=== PATIENT | female | born 1945 | race Caucasian/White ===

== ENCOUNTER 2022-09-04 09:06 | Day surgery (SDC) | payer MEDICARE ==
[2022-08-30 11:53] VITALS: BMI 26.0
[~2022-09-04 09:06] MED LIST: LACTATED RINGERS 1,000 ML IV SCH
[2022-09-04 09:40] VITALS: RESP 16; TEMP 97
[2022-09-04] MEDS ORDERED: PROPOFOL 10 MG/ML 20 ML VIAL IV ONE (10:30)
--- NOTE | 2022-09-04 10:49 | P.PCN ---
Date of Procedure: 09/04/22 Procedure(s) Performed: BRIEF HISTORY: Patient is a 77-year-old pleasant white female scheduled for an elective colonoscopy as a part of screening for colon cancer. Last colonoscopy was 10 years ago. PROCEDURE PERFORMED: Colonoscopy. PREOPERATIVE DIAGNOSIS: Screening for colon cancer. IV sedation per Anesthesia. PROCEDURE: After informed consent was obtained, the patient, was brought into the endoscopy unit. IV sedation was administered by Anesthesia under continuous monitoring. Digital rectal examination was normal. Initially the Olympus CF-160 flexible video colonoscope was then inserted in the rectum, gradually advanced into the cecum without any difficulty. Careful examination was performed as the scope was gradually being withdrawn. Ileocecal valve and the appendiceal orifice were visualized and appeared normal. Prep was excellent. Mucosa of the cecum, ascending colon, transverse colon, descending colon, sigmoid colon, and rectum appeared normal. Scattered sigmoid diverticulosis. Retroflexion was performed in the rectum and no lesions were seen. The patient tolerated the procedure well. IMPRESSION: Normal-appearing colon from rectum to cecum with no evidence of colorectal neoplasia . Scattered sigmoid diverticulosis. RECOMMENDATIONS: Findings of this examination were discussed with the patient as well as a family. She was advised to be a high-fiber diet and fiber supplements a regular basis.
[2022-09-04 10:58] VITALS: PULSE 68
[2022-09-04 11:32] VITALS: BP 105/62
== END 2022-09-04 11:35 | disposition home or self-care (01) ==
LOC: ORWHC2ENDO 09:06
PROVIDERS: ATTEND Internal Medicine Gastroenterology
DX: Z12.11 Encounter for screening for malignant neoplasm of colon (principal); K57.30 Diverticulosis of large intestine without perforation or abscess without bleeding; I10 Essential (primary) hypertension; J44.9 Chronic obstructive pulmonary disease, unspecified; M19.90 Unspecified osteoarthritis, unspecified site; E07.9 Disorder of thyroid, unspecified; K21.9 Gastro-esophageal reflux disease without esophagitis; Z87.891 Personal history of nicotine dependence; Z79.899 Other long term (current) drug therapy; Z79.82 Long term (current) use of aspirin; Z79.890 Hormone replacement therapy; Z88.8 Allergy status to other drugs, medicaments and biological substances
CPT/HCPCS: J2704; G0121

== ENCOUNTER 2023-10-14 15:40 | Inpatient (IN) | payer MEDICARE ==
[2023-10-14 17:17] LABS: Basophils % (A) 1 %; Eosinophils % (A) 1 %; HCT 43.7 % (34.0-46.0); HGB 14.6 gm/dL (11.4-16.0); Lymphocytes # (A) 0.6 k/uL (1.0-4.8); Lymphocytes % (A) 20 %; MCH 29.7 pg (25.0-35.0); MCHC 33.5 g/dL (31.0-37.0); MCV 88.6 fL (80.0-100.0); Mean Platelet Volume 7.2; Monocytes # (A) 0.4 k/uL (0-1.0); Monocytes % (A) 14 %; Neutrophils # (A) 1.8 k/uL (1.3-7.7); Neutrophils % (A) 60 %; Platelet Count 241 k/uL (150-450); RBC 4.93 m/uL (3.80-5.40)
[2023-10-14 17:18] LABS: Partial Thromboplastin Time 24.4 sec (22.0-30.0); Prothrombin Time 10.7 sec (10.0-12.5)
--- NOTE | 2023-10-14 17:25 | XR ---
EXAMINATION TYPE: XR chest 2V DATE OF EXAM: 10/14/2023 5:13 PM CLINICAL INDICATION:Female, 78 years old with history of difficulty breathing; [facility] COMPARISON: None TECHNIQUE: XR chest 2V Frontal view of the chest. FINDINGS: Lungs/Pleura: There is increased lucency in the lung apices. There is no evidence of pleural effusion , focal consolidation, or pneumothorax. Pulmonary vascularity: Prominence of the vasculature of the lungs worse in the lung bases. Heart/mediastinum: Cardiomediastinal silhouette is unremarkable. Atherosclerosis of the aortic arch. Musculoskeletal: No acute osseous pathology. Degeneration changes throughout the spine with disc spac e narrowing osteophyte formation and facet joint arthropathy. Degeneration changes of the acromioclav icular joints bilaterally. IMPRESSION: 1. Pulmonary vascular prominence, correlate with serum BNP to exclude a component of congestive hear t failure. Obscuration of the right heart border may be partially due to prominence of the vasculatur e with underlying infection not excluded, correlate for pneumonia. 2. COPD changes.
[2023-10-14 17:27] LABS: ALT 22 U/L (4-34); AST 34 U/L (14-36); African American GFR (CKD) 34 (>60 ml/min/1.73 sqM); Alkaline Phosphatase 82 U/L (38-126); Anion Gap 9 mmol/L; Blood Urea Nitrogen 29 mg/dL (7-17); Calcium 9.8 mg/dL (8.4-10.2); Carbon Dioxide 21 mmol/L (22-30); Chloride 110 mmol/L (98-107); Glucose 111 mg/dL (74-99); Non-African American GFR(CKD) 29 (>60 ml/min/1.73 sqM); Sodium 140 mmol/L (137-145); Total Bilirubin 0.7 mg/dL (0.2-1.3); Total Protein 6.7 g/dL (6.3-8.2)
[2023-10-14 17:36] LABS: NT-Pro-B-Type Natriuretic Pept 208 pg/mL
--- NOTE | 2023-10-14 18:11 | ED ---
SOB HPI - General Chief Complaint: Shortness of Breath Stated Complaint: CANDI Time Seen by Provider: 10/14/23 16:37 Source: patient Mode of arrival: ambulatory Limitations: no limitations - History of Present Illness Initial Comments: 78 year old female with past medical history of COPD not on home O2 who presents emergency department reporting productive cough and shortness of breath. Patient states that she originally got sick on October 04. Her had similar symptoms however he got better much faster. She has had a productive cough with yellow sputum. Denies fevers. Admits to shortness of breath. She does have COPD but does not wear oxygen. She has inhalers at home which she uses occasionally. States she has been using them without any improvement in her symptoms. She denies chest pain. No history of coronary disease. Denies history of congestive heart failure. No leg swelling. Denies any calf pain. No history of PE or DVT. Patient does not take any water pills. She went to an urgent care today who did a chest x-ray and gave her a breathing treatment. They told her she had pneumonia and she had to go to the hospital. Upon hospital arrival patient was found to be saturating 83% on room air. Patient placed on 4 L with improvement. No other alleviating, precipitating or modifying factors - Related Data Home Medications Medication Instructions Recorded Confirmed Albuterol Inhaler [Ventolin Hfa 1 - 2 puff INHALATION Q6H PRN 08/30/22 09/04/22 Inhaler] Aspirin [Adult Low Dose Aspirin EC] 81 mg PO DAILY 08/30/22 08/30/22 Atorvastatin [Lipitor] 10 mg PO DAILY 08/30/22 08/30/22 Cholecalciferol [Vitamin D3 (25 50 mcg PO DAILY 08/30/22 09/04/22 Mcg = 1000 Iu)] Famotidine [Pepcid] 20 mg PO DAILY PRN 08/30/22 08/30/22 Felodipine [Plendil] 10 mg PO DAILY 08/30/22 08/30/22 Fluticasone Propion/Salmeterol 1 inhalation PO DAILY 08/30/22 08/30/22 [Fluticasone-Salmeterol 250-50] Isosorbide Mononitrate ER [Imdur] 30 mg PO DAILY 08/30/22 08/30/22 Levothyroxine Sodium 88 mcg PO DAILY 08/30/22 08/30/22 lisinopriL [Zestril] 40 mg PO DAILY 08/30/22 08/30/22 Allergies Allergy/AdvReac Type Severity Reaction Status Date / Time brimonidine [From Combigan] Allergy Unknown crusty Verified 10/14/23 15:53 around eye lid timolol [From Combigan] Allergy Unknown crusty Verified 10/14/23 15:53 around eye lid Review of Systems ROS Statement: Those systems with pertinent positive or pertinent negative responses have been documented in the HPI. ROS Other: All systems not noted in ROS Statement are negative. Past Medical History Past Medical History: COPD, GERD/Reflux, Hypertension, Osteoarthritis (OA), Thyroid Disorder Additional Past Medical History / Comment(s): DDD., HX COLON POLYPS. History of Any Multi-Drug Resistant Organisms: None Reported Past Surgical History: Orthopedic Surgery Additional Past Surgical History / Comment(s): colonoscopy with polyps, art hroscopy right knee (2009) , right foot surgery with screw big toe and olivia 2nd toe(2004)., cataracts Past Anesthesia/Blood Transfusion Reactions: No Reported Reaction, Postoperative Nausea & Vomiting (PONV) Additional Past Anesthesia/Blood Transfusion Reaction / Comment(s): nausea after back pain injection Past Psychological History: No Psychological Hx Reported Smoking Status: Former smoker Past Alcohol Use History: Rare Past Drug Use History: None Reported - Past Family History Mother Family Medical History: No Reported History Additional Family Medical History / Comment(s): mothers sister had cancer General Exam Limitations: no limitations Course Vital Signs 10/14/23 10/14/23 10/14/23 15:50 16:15 16:23 Temperature 97.8 F Pulse Rate 77 74 69 Respiratory 22 24 22 Rate Blood Pressure 103/68 102/76 93/71 O2 Sat by Pulse 84 L 83 L 94 L Oximetry 10/14/23 10/14/23 16:25 17:00 Temperature Pulse Rate 98 Respiratory 24 20 Rate Blood Pressure 100/60 O2 Sat by Pulse 93 L Oximetry Medical Decision Making - Medical Decision Making Was pt. sent in by a medical professional or institution (, PA, CERTIFIED REGISTERED LOCKSMITH, urgent care, hospital, or fci...) When possible be specific @ -[No] Did you speak to anyone other than the patient for history (EMS, parent, family, police, friend...)? What history was obtained from this source @ -[No] Did you review nursing and triage notes (agree or disagree)? Why? @ -[I reviewed and agree with nursing and triage notes] Were old charts reviewed (outside hosp., previous admission, EMS record, old EKG, old radiological studies, urgent care reports/EKG's, fci records)? Report findings @ -[No old charts were reviewed] Differential Diagnosis (chest pain, altered mental status, abdominal pain women, abdominal pain men, vaginal bleeding, weakness, fever, dyspnea, syncope, headache, dizziness, GI bleed, back pain, seizure, CVA, palpatations, mental health, musculoskeletal)? @ -[not applicable] EKG interpreted by me (3pts min.). @ -Yes and demonstrates sinus rhythm with a rate of 69. ND interval 194. QRS 79. QTc of 410. No acute ST segment elevations or depressions. Overall low voltage X-rays interpreted by me (1pt min.). @ -[None done] CT interpreted by me (1pt min.). @ -[None done] U/S interpreted by me (1pt. min.). @ -[None done] What testing was considered but not performed or refused? (CT, X-rays, U/S, labs)? Why? @ -[None] What meds were considered but not given or refused? Why? @ -[None] Did you discuss the management of the patient with other professionals (professionals i.e. , PA, CERTIFIED REGISTERED [employer]SMITH, lab, RT, psych nurse, elementary school social worker, exhibit carpenter, teacher, banking officer, casey saw operator)? Give summary @ -[No] Was smoking cessation discussed for >3mins.? @ -[No] Was critical care preformed (if so, how long)? @ -[No] Were there social determinants of health that impacted care today? How? (Homele ssness, low income, unemployed, alcoholism, drug addiction, transportation, low edu. Level, literacy, decrease access to med. care, residential, rehab)? @ -[No] Was there de-escalation of care discussed even if they declined (Discuss DNR or withdrawal of care, Hospice)? DNR status @ -[No] What co-morbidities impacted this encounter? (DM, HTN, Smoking, COPD, CAD, Cancer, CVA, ARF, Chemo, Hep., AIDS, mental health diagnosis, sleep apnea, morbid obesity)? @ -[None] Was patient admitted / discharged? Hospital course, mention meds given and route, prescriptions, significant lab abnormalities, going to OR and other pertinent info. @ -[hospital course] Undiagnosed new problem with uncertain prognosis? @ -[No] Drug Therapy requiring intensive monitoring for toxicity (Heparin, Nitro, Insulin, Cardizem)? @ -[No] Were any procedures done? @ -[No] Diagnosis/symptom? @ -[default] Acute, or Chronic, or Acute on Chronic? @ -[default] Uncomplicated (without systemic symptoms) or Complicated (systemic symptoms)? @ -[default] Side effects of treatment? @ -[No] Exacerbation, Progression, or Severe Exacerbation? @ -[No] Poses a threat to life or bodily function? How? (Chest pain, USA, MD, pneumonia, PE, COPD, DKA, ARF, appy, cholecystitis, CVA, Diverticulitis, Homicidal, Suicidal, threat to staff... and all critical care pts) @ -[No] - Lab Data Result diagrams: 10/14/23 16:35 10/14/23 16:35 Lab Results 10/14/23 10/14/23 10/14/23 Range/Units 16:35 16:35 16:35 WBC 3.0 L (3.8-10.6) k/uL RBC 4.93 (3.80-5.40) m/uL Hgb 14.6 (11.4-16.0) gm/dL Hct 43.7 (34.0-46.0) % MCV 88.6 (80.0-100.0) fL MCH 29.7 (25.0-35.0) pg MCHC 33.5 (31.0-37.0) g/dL RDW 13.0 (11.5-15.5) % Plt Count 241 (150-450) k/uL MPV 7.2 Neutrophils % 60 % Lymphocytes % 20 % Monocytes % 14 % Eosinophils % 1 % Basophils % 1 % Neutrophils # 1.8 (1.3-7.7) k/uL Lymphocytes # 0.6 L (1.0-4.8) k/uL Monocytes # 0.4 (0-1.0) k/uL Eosinophils # 0.0 (0-0.7) k/uL Basophils # 0.0 (0-0.2) k/uL PT 10.7 (10.0-12.5) sec INR 1.0 (<1.2) APTT 24.4 (22.0-30.0) sec Sodium 140 (137-145) mmol/L Potassium 4.0 (3.5-5.1) mmol/L Chloride 110 H (98-107) mmol/L Carbon Dioxide 21 L (22-30) mmol/L Anion Gap 9 mmol/L BUN 29 H (7-17) mg/dL Creatinine 1.65 H (0.52-1.04) mg/dL Est GFR (CKD-EPI)AfAm 34 (>60 ml/min/1.73 sqM) Est GFR (CKD-EPI)NonAf 29 (>60 ml/min/1.73 sqM) Glucose 111 H (74-99) mg/dL Plasma Lactic Acid Camron (0.7-2.0) mmol/L Calcium 9.8 (8.4-10.2) mg/dL Total Bilirubin 0.7 (0.2-1.3) mg/dL AST 34 (14-36) U/L ALT 22 (4-34) U/L Alkaline Phosphatase 82 (38-126) U/L Troponin I (0.000-0.034) ng/mL NT-Pro-B Natriuret Pep 208 pg/mL Total Protein 6.7 (6.3-8.2) g/dL Albumin 4.0 (3.5-5.0) g/dL 10/14/23 10/14/23 Range/Units 16:35 16:35 WBC (3.8-10.6) k/uL RBC (3.80-5.40) m/uL Hgb (11.4-16.0) gm/dL Hct (34.0-46.0) % MCV (80.0-100.0) fL MCH (25.0-35.0) pg MCHC (31.0-37.0) g/dL RDW (11.5-15.5) % Plt Count (150-450) k/uL MPV Neutrophils % % Lymphocytes % % Monocytes % % Eosinophils % % Basophils % % Neutrophils # (1.3-7.7) k/uL Lymphocytes # (1.0-4.8) k/uL Monocytes # (0-1.0) k/uL Eosinophils # (0-0.7) k/uL Basophils # (0-0.2) k/uL PT (10.0-12.5) sec INR (<1.2) APTT (22.0-30.0) sec Sodium (137-145) mmol/L Potassium (3.5-5.1) mmol/L Chloride (98-107) mmol/L Carbon Dioxide (22-30) mmol/L Anion Gap mmol/L BUN (7-17) mg/dL Creatinine (0.52-1.04) mg/dL Est GFR (CKD-EPI)AfAm (>60 ml/min/1.73 sqM) Est GFR (CKD-EPI)NonAf (>60 ml/min/1.73 sqM) Glucose (74-99) mg/dL Plasma Lactic Acid Camron 1.3 (0.7-2.0) mmol/L Calcium (8.4-10.2) mg/dL Total Bilirubin (0.2-1.3) mg/dL AST (14-36) U/L ALT (4-34) U/L Alkaline Phosphatase (38-126) U/L Troponin I <0.012 (0.000-0.034) ng/mL NT-Pro-B Natriuret Pep pg/mL Total Protein (6.3-8.2) g/dL Albumin (3.5-5.0) g/dL Disposition Clinical Impression: Acute pulmonary edema, Pneumonia, Hypoxia Disposition: ADMITTED IP TO THIS [facility] Condition: Serious Is patient prescribed a controlled substance at d/c from ED?: No Referrals: Agapito Leal MD [Primary Care Provider] - 1-2 days Time of Disposition: 18:33 Decision to Admit Reason: Admit from EC Decision Date: 10/14/23 Decision Time: 18:33
[2023-10-14] MEDS ORDERED: PNEUMONIA PROTOCOL UTILIZED 1 EACH MISC PO PRN (18:28)
[2023-10-14] MEDS: methylPREDNISolone SOD SUCCI 125 MG/2 ML VIAL IV STA (19:12)
[2023-10-14] MEDS: IPRATROPIUM-ALBUTEROL 3 ML NEB INHALATION SCH (19:29)
[2023-10-14] MEDS: AZITHROMYCIN 500 MG in SODIUM CHLORIDE 0.9% 250 ML IVPB STA (20:12)
[2023-10-14] MEDS ORDERED: IPRATROPIUM-ALBUTEROL 3 ML NEB INHALATION PRN (20:37)
[2023-10-14] MEDS ORDERED: BACLOFEN 10 MG TAB PO PRN (21:03)
--- NOTE | 2023-10-14 21:05 | P.HPIM ---
History of Present Illness H&P Date: 10/14/23 Chief Complaint: Short of breath This is a pleasant 78-year-old patient, follows with Dr. Agapito Leal. For 1 week patient has been congested. Cough. Slight headache. Also had initially slight loose stool. Also felt feverish and having chills. Decreased appetite. Patient also got sick. Patient was [id number] history of smoking stopping about 10 years ago. Patient was 84% room air upon presentation. Tired. Review of systems: GEN.: Weak tired decreased appetite fever chills EYES: None HEENT: Slight headache NECK: None RESPIRATORY: N as above CARDIOVASCULAR: None GASTROINTESTINAL: None GENITOURINARY: None MUSCULOSKELETAL: Joint pain LYMPHATICS: None HEMATOLOGICAL: None PSYCHIATRY: None NEUROLOGICAL: None Social history: Smoked a pack a day for 50 years stopped about 10 years ago. . Physical examination: VITAL SIGNS 97.8, 77, 22, 103/68, 84% room air upon presentation GENERAL: BMI 24.3,. Reclining in bed, short of breath EYES: Pupils equal. Conjunctiva jen l. HEENT: External appearance of nose and ears normal, oral cavity grossly normal. NECK: JVD not raised; masses not palpable. HEART: First and second heart sounds are normal; no edema. LUNGS: Respiratory rate increased, decreased breath sounds some fine basilar crackles. ABDOMEN: Soft, nontender, liver spleen not palpable, no masses palpable. PSYCH: Alert and oriented x3; mood and affect jen l. MUSCULOSKELETAL:No Clubbing/cyanosis;muscles-grossly intact. OA NEUROLOGICAL: Cranial nerves grossly intact; no facial asymmetry, power and sensation grossly intact. LYMPHATICS: No lymph nodes palpable in the axilla and neck INVESTIGATIONS, reviewed in the clinical context: October 13: White count 3 hemoglobin 14.6 platelets 241 sodium 140 potassium 4 BUN 29 creatinine 1.65 Troponin I less than 0.012 proBNP 208 COVID-19 [PCR detected Chest x-ray film personally reviewed by me-scattered basilar infiltrates Assessment and plan: -Acute COVID-19 pneumonitis causing hypoxia Dexamethasone. 6 mg IV every 12. -Acute hypoxia secondary to COVID-19 pneumonia -Acute COPD exacerbation in a prior smoker Albuterol 4 puffs every 4. IV dexamethasone -Essential hypertension Zestril 40 mg a day Plendil -Hypothyroid Levothyroxine 88 mcg a day -Hyperlipidemia Lipitor 20 mg a day -GERD PPI -Primary osteoarthritis Tylenol as needed -Full code Care was discussed with the patient. Pulmonary consulted. Past Medical History Past Medical History: COPD, GERD/Reflux, Hypertension, Osteoarthritis (OA), Thyroid Disorder Additional Past Medical History / Comment(s): DDD., HX COLON POLYPS. History of Any Multi-Drug Resistant Organisms: None Reported Past Surgical History: Orthopedic Surgery Additional Past Surgical History / Comment(s): colonoscopy with polyps, arthroscopy right knee (2009) , right foot surgery with screw big toe and olivia 2nd toe(2004)., cataracts Past Anesthesia/Blood Transfusion Reactions: No Reported Reaction, Postoperative Nausea & Vomiting (PONV) Additional Past Anesthesia/Blood Transfusion Reaction / Comment(s): nausea after back pain injection Past Psychological History: No Psychological Hx Reported Smoking Status: Former smoker Past Alcohol Use History: Rare Past Drug Use History: None Reported - Past Family History Mother Family Medical History: No Reported History Additional Family Medical History / Comment(s): mothers sister had cancer Medications and Allergies Home Medications Medication Instructions Recorded Confirmed Type Albuterol Inhaler [Ventolin Hfa 2 puff INHALATION RT-Q4H PRN 08/30/22 10/14/23 History Inhaler] Aspirin [Adult Low Dose Aspirin EC] 81 mg PO DAILY 08/30/22 10/14/23 History Cholecalciferol [Vitamin D3 (25 50 mcg PO DAILY 08/30/22 10/14/23 History Mcg = 1000 Iu)] Famotidine [Pepcid] 20 mg PO DAILY 08/30/22 10/14/23 History Felodipine [Plendil] 10 mg PO DAILY 08/30/22 10/14/23 History Fluticasone Propion/Salmeterol 1 puff INHALATION RT-BID 08/30/22 10/14/23 History [Fluticasone-Salmeterol 250-50] Isosorbide Mononitrate ER [Imdur] 30 mg PO DAILY 08/30/22 10/14/23 History Levothyroxine Sodium 88 mcg PO DAILY 08/30/22 10/14/23 History lisinopriL [Zestril] 40 mg PO DAILY 08/30/22 10/14/23 History Atorvastatin [Lipitor] 20 mg PO DAILY 10/14/23 10/14/23 History Baclofen [Lioresal] 20 mg PO DAILY PRN 10/14/23 10/14/23 History Krill Oil(Unknown Dose) 1 cap PO Q2D 10/14/23 10/14/23 History Nitroglycerin Sl Tabs [Nitrostat] 0.4 mg SL Q5M PRN 10/14/23 10/14/23 History Propylene Glycol/Peg 400/Pf 1 drop BOTH EYES BID 10/14/23 10/14/23 History [Systane 0.3-0.4% Ophth Dropperette] Allergies Allergy/AdvReac Type Severity Reaction Status Date / Time brimonidine [From Combigan] Allergy Unknown crusty Verified 10/14/23 19:28 around eye lid timolol [From Combigan] Allergy Unknown crusty Verified 10/14/23 19:28 around eye lid Physical Exam Vitals: Vital Signs Temp Pulse Resp BP Pulse Ox 10/14/23 20:14 76 20 110/73 92 L 10/14/23 19:42 74 10/14/23 19:29 66 10/14/23 18:00 78 20 117/78 94 L 10/14/23 17:00 98 20 100/60 93 L 10/14/23 16:25 24 10/14/23 16:23 69 22 93/71 94 L 10/14/23 16:15 74 24 102/76 83 L 10/14/23 15:50 97.8 F 77 22 103/68 84 L Intake and Output 10/14/23 10/14/23 10/14/23 06:59 14:59 22:59 Other: Weight 62.142 kg Results CBC & Chem 7: 10/14/23 16:35 10/14/23 16:35 Labs: Abnormal Lab Results - Last 24 Hours (Table) 10/14/23 10/14/23 10/14/23 Range/Units 16:35 16:35 19:50 WBC 3.0 L (3.8-10.6) k/uL Lymphocytes # 0.6 L (1.0-4.8) k/uL Chloride 110 H (98-107) mmol/L Carbon Dioxide 21 L (22-30) mmol/L BUN 29 H (7-17) mg/dL Creatinine 1.65 H (0.52-1.04) mg/dL Glucose 111 H (74-99) mg/dL SARS-CoV-2 (PCR) Detected A (Not Detectd)
[2023-10-14] MEDS: ALBUTEROL HFA INHALER INHALATION SCH (21:13)
[2023-10-14 21:23] LABS: Glucose,Whole Blood 115 mg/dL (70-110)
[2023-10-14 21:58] VITALS: RESP 18
[2023-10-14] MEDS: ENOXAPARIN 40 MG/0.4 ML SYRINGE SQ SCH (22:05)
[2023-10-14] MEDS: DEXAMETHASONE SOD PHOSPHATE 10 MG/ML 1 ML VIAL IVP SCH (22:05)
--- NOTE | 2023-10-15 03:01 | P.CNPUL ---
History of Present Illness Consult date: 10/15/23 Requesting physician: Arturo Mcdowell Reason for consult: other (COVID-19; hypoxia) Chief complaint: Shortness of breath, cough, rhinorrhea, diarrhea History of present illness: Patient is an 78-year-old white female with past medical history significant for COPD, former tobacco smoker, hypertension, hyperlipidemia, hypothyroidism. Her primary care provider is Dr. Agapito Yung. She presented emergency room yesterday evening complaining of progressively worsening shortness of breath, a persistent cough with occasional yellow sputum production, rhinorrhea, headache, reduced appetite, intermittent diarrhea. She states that the symptoms started on October 04. Her recently was hospitalized, and then became sick with similar symptoms after discharge. She is currently resting on 4 L/min nasal cannula. She was found to be hypoxic in the emergency department on arrival with an oxygen saturation of 83% on room air. She does not normally wear oxygen. She does have history of COPD. She normally utilizes a combination of Advair and as needed Ventolin HFA inhaler. She has no recent hospitalizations for COPD. Chest x-ray on arrival demonstrating coarsened interstitial densities, greater at the bases. Hyperinflation consistent with COPD. Patient did test positive for COVID-19 on arrival. She denies any prior known COVID-19 infections. She has received her original vaccination as well as several boosters, most recently last fall. CBC: WBC count 3, hemoglobin 14.6, hematocrit 43.7, platelets 241. CMP: Sodium 140, potassium 4, chloride 1 7, serum bicarb 21, BUN 29, creatinine 1.65, glucose 111. LFTs unremarkable. Lactic 1.3. Troponins less than 0.012. NT proBNP 208. Afebrile. Hemodynamics are stable. Review of Systems REVIEW OF SYSTEMS: CONSTITUTIONAL: Denies any recent significant weight loss or weight gain. Admits generalized weakness and fatigue. EYES: Denies change in vision. EARS, NOSE, MOUTH, THROAT: Admits generalized headaches, rhinorrhea, sore throat. CARDIOVASCULAR: Denies chest pain, palpitations or syncopal episodes. RESPIRATORY: See HPI GASTROINTESTINAL: Denies admits reduced appetite and intermittent diarrhea. No abdominal pain or nausea and vomiting GENITOURINARY: Denies hematuria, denies infections. MUSKULOSKELETAL: Denies pain, denies swelling. INTEGUMENTARY: Denies rash, denies eczema. NEUROLOGICAL: Denies recent memory loss, no recent seizure activity. PSYCHIATRIC: Denies anxiety, denies depression. HEMATOLOGIC/LYMPHATIC: Denies anemia, denies enlarged lymph node Past Medical History Past Medical History: COPD, GERD/Reflux, Hypertension, Osteoarthritis (OA), Thyroid Disorder Additional Past Medical History / Comment(s): DDD, COLON POLYPS History of Any Multi-Drug Resistant Organisms: None Reported Past Surgical History: Orthopedic Surgery Additional Past Surgical History / Comment(s): colonoscopy with polyps, arthroscopy right knee (2009), right foot surgery with screw big toe and olivia 2nd toe (2004), cataracts Past Anesthesia/Blood Transfusion Reactions: No Reported Reaction, Postoperative Nausea & Vomiting (PONV) Additional Past Anesthesia/Blood Transfusion Reaction / Comment(s): nausea after back pain injection Past Psychological History: No Psychological Hx Reported Smoking Status: Former smoker Past Alcohol Use History: Rare Past Drug Use History: None Reported - Past Family History Mother Family Medical History: No Reported History Additional Family Medical History / Comment(s): mothers sister had cancer Medications and Allergies Home Medications Medication Instructions Recorded Confirmed Type Albuterol Inhaler [Ventolin Hfa 2 puff INHALATION RT-Q4H PRN 08/30/22 10/14/23 History Inhaler] Aspirin [Adult Low Dose Aspirin EC] 81 mg PO DAILY 08/30/22 10/14/23 History Cholecalciferol [Vitamin D3 (25 50 mcg PO DAILY 08/30/22 10/14/23 History Mcg = 1000 Iu)] Famotidine [Pepcid] 20 mg PO DAILY 08/30/22 10/14/23 History Felodipine [Plendil] 10 mg PO DAILY 08/30/22 10/14/23 History Fluticasone Propion/Salmeterol 1 puff INHALATION RT-BID 08/30/22 10/14/23 History [Fluticasone-Salmeterol 250-50] Isosorbide Mononitrate ER [Imdur] 30 mg PO DAILY 08/30/22 10/14/23 History Levothyroxine Sodium 88 mcg PO DAILY 08/30/22 10/14/23 History lisinopriL [Zestril] 40 mg PO DAILY 08/30/22 10/14/23 History Atorvastatin [Lipitor] 20 mg PO DAILY 10/14/23 10/14/23 History Baclofen [Lioresal] 20 mg PO DAILY PRN 10/14/23 10/14/23 History Krill Oil(Unknown Dose) 1 cap PO Q2D 10/14/23 10/14/23 History Nitroglycerin Sl Tabs [Nitrostat] 0.4 mg SL Q5M PRN 10/14/23 10/14/23 History Propylene Glycol/Peg 400/Pf 1 drop BOTH EYES BID 10/14/23 10/14/23 History [Systane 0.3-0.4% Ophth Dropperette] Allergies Allergy/AdvReac Type Severity Reaction Status Date / Time brimonidine [From Combigan] Allergy Unknown crusty Verified 10/14/23 19:28 around eye lid timolol [From Combigan] Allergy Unknown crusty Verified 10/14/23 19:28 around eye lid Physical Exam Vitals: Vital Signs Temp Pulse Pulse Resp BP BP Pulse Ox 10/15/23 00:00 98.2 F 78 18 117/73 95 10/14/23 21:30 98.5 F 74 18 113/74 94 L 10/14/23 20:14 76 20 110/73 92 L 10/14/23 19:42 74 10/14/23 19:29 66 10/14/23 18:00 78 20 117/78 94 L 10/14/23 17:00 98 20 100/60 93 L 10/14/23 16:25 24 10/14/23 16:23 69 22 93/71 94 L 10/14/23 16:15 74 24 102/76 83 L 10/14/23 15:50 97.8 F 77 22 103/68 84 L Intake and Output 10/14/23 10/14/23 10/15/23 14:59 22:59 06:59 Intake Total 10 Balance 10 Intake: IV 10 Invasive Line 1 10 Other: Voiding Method Toilet Toilet Weight 62.142 kg GENERAL EXAM: Alert, 78-year-old white female, comfortable in no apparent distress. HEAD: Normocephalic and atraumatic EYES: Normal reaction of pupils, equal size. NOSE: Clear with pink turbinates. THROAT: No erythema or exudates. NECK: No masses, no JVD. CHEST: No chest wall deformity. LUNGS: Equal air entry with markedly diminished lung sounds throughout. No crac kles, wheeze, rhonchi or dullness. On 4 L/min nasal cannula. No conversational dyspnea or accessory muscle use while at rest CVS: S1 and S2 normal with no audible murmur, regular rhythm. No extra heart sounds ABDOMEN: No hepatosplenomegaly, active bowel sounds, no guarding or rigidity. SPINE: No scoliosis or deformity SKIN: No rashes CENTRAL NERVOUS SYSTEM: No focal deficits, tone is normal in all 4 extremities. EXTREMITIES: There is no peripheral edema, clubbing, or cyanosis. Peripheral pulses are intact. Results - Laboratory Findings CBC and BMP: 10/14/23 16:35 10/14/23 16:35 PT/INR, D-dimer PT 10.7 sec (10.0-12.5) 10/14/23 16:35 INR 1.0 (<1.2) 10/14/23 16:35 Abnormal lab findings: Abnormal Labs 10/14/23 10/14/23 10/14/23 16:35 16:35 19:50 WBC 3.0 L Lymphocytes # 0.6 L Chloride 110 H Carbon Dioxide 21 L BUN 29 H Creatinine 1.65 H Glucose 111 H POC Glucose (mg/dL) SARS-CoV-2 (PCR) Detected A 10/14/23 21:21 WBC Lymphocytes # Chloride Carbon Dioxide BUN Creatinine Glucose POC Glucose (mg/dL) 115 H SARS-CoV-2 (PCR) - Diagnostic Findings Chest x-ray: image reviewed Assessment and Plan Assessment: Acute COPD exacerbation secondary to acute COVID-19 pneumonia Acute hypoxemic respiratory failure, secondary to above Leukopenia Suspect acute kidney injury, unknown baseline creatinine; current creatinine 1.65 History of hyperlipidemia History of hypertension History of hypothyroidism Former tobacco dependence, quitting over 10 years ago Plan: Patient's medications, labs, chest x-ray reviewed Continue supplemental oxygen to maintain oxygen saturation of 92% or greater Suspect COVID-19 pneumonia, superimposed bacterial infection is felt to be less likely. Procalcitonin level pending. Patient did receive doses of Azithromycin and Rocephin in the emergency department. Patient's symptoms started over 9 days ago. Continue with supportive care, including IV Decadron. Continue combination of Symbicort inhaler and Ventolin HFA inhaler Lovenox for DVT prophylaxis Pepcid for GI prophylaxis We will continue to follow I have personally seen and examined the patient, performed the documentation and the assessment and plan as written. Number of minutes spent on the visit:20 Time with Patient: Greater than 30
[2023-10-15 05:52] LABS: Glucose,Whole Blood 165 mg/dL (70-110)
[2023-10-15] MEDS: LEVOTHYROXINE 88 MCG TAB PO SCH (06:25)
[2023-10-15] MEDS ORDERED: methylPREDNISolone SOD SUCCI 40 MG/ML 1 ML VIAL IV SCH (08:00)
[2023-10-15] MEDS ORDERED: IPRATROPIUM-ALBUTEROL 3 ML NEB INHALATION SCH (08:00)
[2023-10-15] MEDS ORDERED: SYMBICORT 80-4.5 MCG INHALER INHALATION SCH (08:00)
--- NOTE | 2023-10-15 08:05 | XR ---
EXAMINATION TYPE: XR chest 1V portable DATE OF EXAM: 10/15/2023 7:07 AM CLINICAL INDICATION:Female, 78 years old with history of pneumonia; [facility] COMPARISON: Chest radiograph from one day prior. TECHNIQUE: XR chest 1V portable Frontal view of the chest. FINDINGS: Lungs/Pleura: There is increased lucency in the lung apices. Stable interstitial lung markings most p roximal lung bases. There is no evidence of pleural effusion, focal consolidation, or pneumothorax. Pulmonary vascularity: Prominence of the vasculature of the lungs worse in the lung bases. Heart/mediastinum: Cardiomediastinal silhouette is unremarkable. Atherosclerosis of the aortic arch. Musculoskeletal: No acute osseous pathology. Degeneration changes throughout the spine with disc spac e narrowing osteophyte formation and facet joint arthropathy. Degeneration changes of the acromioclav icular joints bilaterally. IMPRESSION: 1. Similar exam with no new focal airspace consolidation. Findings could be compatible atypical pneu monia. 2. COPD changes.
[2023-10-15] MEDS ORDERED: AZITHROMYCIN 500 MG TAB PO SCH (09:00)
[2023-10-15] MEDS: ASPIRIN 81 MG PO SCH (09:14)
[2023-10-15] MEDS: lisinopriL 20 MG TAB PO SCH (09:14)
[2023-10-15] MEDS: ISOSORBIDE MONONITRATE ER 30 MG TAB.ER.24H PO SCH (09:14)
[2023-10-15] MEDS: guaiFENesin-DM 100-10MG/5ML 10 ML CUP PO PRN (09:14)
[2023-10-15] MEDS: ATORVASTATIN 20 MG TAB PO SCH (09:14)
[2023-10-15] MEDS: amLODIPine 10 MG TAB PO SCH (09:14)
[2023-10-15] MEDS: FAMOTIDINE 20 MG TAB PO SCH (09:14)
[2023-10-15] MEDS: ARTIFICIAL TEARS-HYPROMELLOSE DROPS 15 ML BTL BOTH EYES SCH (09:15)
[2023-10-15] MEDS: SYMBICORT 160-4.5 MCG INHALER INHALATION SCH (09:39)
[2023-10-15 11:46] LABS: Glucose,Whole Blood 111 mg/dL (70-110)
--- NOTE | 2023-10-15 14:48 | P.PN ---
Progress Note - Text Progress Note Date: 10/15/23 Chief Complaint: Short of breath This is a pleasant 78-year-old patient, follows with Dr. Agapito Leal. For 1 week patient has been congested. Cough. Slight headache. Also had initially slight loose stool. Also felt feverish and having chills. Decreased appetite. Patient also got sick. Patient was [id number] history of smoking stopping about 10 years ago. Patient was 84% room air upon presentation. Tired. October 14: Patient met with COVID pneumonitis and hypoxia. Feeling a bit better today. Sitting at the edge of the bed. Reminded to use incentive spirometry more frequently. Getting IV Decadron. Seen by pulmonary. Eating some Active Medications Albuterol Sulfate (Albuterol Hfa Inhaler) 4 puff INHALATION Q4H [facility] Last Admin: 10/15/23 12:37 Dose: 4 puff Amlodipine Besylate (Amlodipine 10 Mg Tab) 10 mg PO DAILY [facility] Last Admin: 10/15/23 09:14 Dose: 10 mg Artificial Tears (Artificial Tears-Hypromellose Drops 15 Ml Btl) 1 drops BOTH EYES BID [facility] Last Admin: 10/15/23 09:15 Dose: 1 drops Aspirin (Aspirin 81 Mg) 81 mg PO DAILY [facility] Last Admin: 10/15/23 09:14 Dose: 81 mg Atorvastatin Calcium (Atorvastatin 20 Mg Tab) 20 mg PO DAILY [facility] Last Admin: 10/15/23 09:14 Dose: 20 mg Baclofen (Baclofen 10 Mg Tab) 20 mg PO DAILY PRN PRN Reason: Muscle Spasm Budesonide/Formoterol Fumarate (Symbicort 160-4.5 Mcg Inhaler) 2 puff INHALATION RT-BID [facility] Last Admin: 10/15/23 09:39 Dose: 2 puff Dexamethasone Sodium Phosphate (Dexamethasone Sod Phosphate 10 Mg/Ml 1 Ml Vial) 6 mg IVP BID [facility] Last Admin: 10/15/23 09:15 Dose: 6 mg Enoxaparin Sodium (Enoxaparin 30 Mg/0.3 Ml Syringe) 30 mg SQ DAILY [facility] Famotidine (Famotidine 20 Mg Tab) 20 mg PO DAILY [facility] Last Admin: 10/15/23 09:14 Dose: 20 mg Guaifenesin/Dextromethorphan (Guaifenesin-Dm 100-10mg/5ml 10 Ml Cup) 10 ml PO Q8HR PRN PRN Reason: Cough Last Admin: 10/15/23 09:14 Dose: 10 ml Isosorbide Mononitrate (Isosorbide Mononitrate Er 30 Mg Tab.Er.24h) 30 mg PO DAILY [facility] Last Admin: 10/15/23 09:14 Dose: 30 mg Levothyroxine Sodium (Levothyroxine 88 Mcg Tab) 88 mcg PO DAILY@0630 [facility] Last Admin: 10/15/23 06:25 Dose: 88 mcg Lisinopril (Lisinopril 20 Mg Tab) 40 mg PO DAILY [facility] Last Admin: 10/15/23 09:14 Dose: 40 mg Miscellaneous Information (Pneumonia Protocol Utilized 1 Each Misc) 1 each PO ONCE PRN PRN Reason: Per Protocol Social history: Smoked a pack a day for 50 years stopped about 10 years ago. . Physical examination: VITAL SIGNS 98, 80, 18, 113/70, 93% on 4 L GENERAL: Sitting on edge of bed, breathing a bit better EYES: Pupils equal. Conjunctiva jen l. HEENT: External appearance of nose and ears normal, oral cavity grossly normal. NECK: JVD not raised; masses not palpable. HEART: First and second heart sounds are normal; no edema. LUNGS: Respiratory rate increased, decreased breath sounds some fine basilar crackles. ABDOMEN: Soft, nontender, liver spleen not palpable, no masses palpable. PSYCH: Alert and oriented x3; mood and affect jen l. MUSCULOSKELETAL:No Clubbing/cyanosis;muscles-grossly intact. OA INVESTIGATIONS, reviewed in the clinical context: October 13: White count 3 hemoglobin 14.6 platelets 241 sodium 140 potassium 4 BUN 29 creatinine 1.65 Troponin I less than 0.012 proBNP 208 COVID-19 [PCR detected Chest x-ray film personally reviewed by me-scattered basilar infiltrates Assessment and plan: -Acute COVID-19 pneumonitis causing hypoxia: Slow to respond Dexamethasone. 6 mg IV every 12. -Acute hypoxia secondary to COVID-19 pneumonia: Slow to respond On 4 L nasal cannula Incentive spirometry -Acute COPD exacerbation in a prior smoker Albuterol 4 puffs every 4. IV dexamethasone -Essential hypertension Zestril 40 mg a day Plendil -Hypothyroid Levothyroxine 88 mcg a day -Hyperlipidemia Lipitor 20 mg a day -GERD PPI -Primary osteoarthritis Tylenol as needed -Full code Increase activity in the room. Medications to continue. Follow-up with pulmonary. Past Medical History Past Medical History: COPD, GERD/Reflux, Hypertension, Osteoarthritis (OA), Thyroid Disorder Additional Past Medical History / Comment(s): DDD., HX COLON POLYPS. History of Any Multi-Drug Resistant Organisms: None Reported Past Surgical History: Orthopedic Surgery Additional Past Surgical History / Comment(s): colonoscopy with polyps, arthroscopy right knee (2009) , right foot surgery with screw big toe and olivia 2nd toe(2004)., cataracts Past Anesthesia/Blood Transfusion Reactions: No Reported Reaction, Postoperative Nausea & Vomiting (PONV) Additional Past Anesthesia/Blood Transfusion Reaction / Comment(s): nausea after back pain injection Past Psychological History: No Psychological Hx Reported Smoking Status: Former smoker Past Alcohol Use History: Rare Past Drug Use History: None Reported
--- NOTE | 2023-10-15 15:38 | US ---
EXAMINATION TYPE: US kidneys/renal and bladder DATE OF EXAM: 10/15/2023 COMPARISON: NONE CLINICAL INDICATION: Female, 78 years old with history of Evaluate for CKD; eval for CKD EXAM MEASUREMENTS: Right Kidney: 8.9 x 4.3 x 4.6 cm Left Kidney: 11.7 x 4.6 x 4.9 cm Right Kidney: No hydronephrosis or masses seen. Inf pole limited due to bowel gas. Where visualized a re cortical medullary differentiation maintained. Left Kidney: Large cystic area seen at inf pole measuring 4.7 x 4.3 x 3.9cm . Cortical medullary diff erentiation maintained. No solid renal masses visualized. No definitive hydronephrosis. Bladder: wnl Bilateral Jets seen: Only left jet seen IMPRESSION: 1. No evidence for obstructive uropathy. 2. Cortical medullary differentiation maintained bilaterally. 3. Left renal sinus simple appearing cyst measuring up to 4.7 cm. 4. Nonvisualization of the right ureteral jet which could be due to patient physiology/timing.
[2023-10-15 16:58] LABS: Glucose,Whole Blood 139 mg/dL (70-110)
[2023-10-15] MEDS: SODIUM CHLORIDE 0.45% 1,000 ML IV SCH (17:42)
[2023-10-15 19:37] LABS: Appearance,Urine Clear (Clear); Bilirubin,Urine Negative (Negative); Blood,Urine Negative (Negative); Color,Urine Light Yellow; Glucose,Urine (UA) Negative (Negative); Ketones,Urine Negative (Negative); Leukocyte Esterase,Urine Negative (Negative); Nitrite,Urine Negative (Negative); PH, Urine 5.5 (5.0-8.0); Protein,Urine Trace (Negative); Specific Gravity,Urine 1.014 (1.001-1.035); Urobilinogen,Urine <2.0 mg/dL (<2.0)
[2023-10-15 20:16] LABS: Glucose,Whole Blood 132 mg/dL (70-110)
[2023-10-16 06:18] LABS: Glucose,Whole Blood 124 mg/dL (70-110)
[2023-10-16 06:45] LABS: African American GFR (CKD) 59 (>60 ml/min/1.73 sqM); Anion Gap 7 mmol/L; Blood Urea Nitrogen 35 mg/dL (7-17); Calcium 10.2 mg/dL (8.4-10.2); Carbon Dioxide 22 mmol/L (22-30); Chloride 110 mmol/L (98-107); Glucose 124 mg/dL (74-99); Non-African American GFR(CKD) 52 (>60 ml/min/1.73 sqM); Potassium 4.6 mmol/L (3.5-5.1); Sodium 139 mmol/L (137-145)
[2023-10-16] MEDS: ENOXAPARIN 30 MG/0.3 ML SYRINGE SQ SCH (08:58)
[2023-10-16 11:46] LABS: Glucose,Whole Blood 111 mg/dL (70-110)
--- NOTE | 2023-10-16 16:50 | P.PN ---
Subjective Progress Note Date: 10/16/23 Principal diagnosis: Acute exacerbation of COPD secondary to acute COVID-19 pneumonia Patient is an 78-year-old white female with past medical history significant for COPD, former tobacco smoker, hypertension, hyperlipidemia, hypothyroidism. Her primary care provider is Dr. Agapito Yung. She presented emergency room yesterday evening complaining of progressively worsening shortness of breath, a persistent cough with occasional yellow sputum production, rhinorrhea, headache, reduced appetite, intermittent diarrhea. She states that the symptoms started on October 04. Her recently was hospitalized, and then became sick with similar symptoms after discharge. She is currently resting on 4 L/min nasal cannula. She was found to be hypoxic in the emergency department on arrival with an oxygen saturation of 83% on room air. She does not normally wear oxygen. She does have history of COPD. She normally utilizes a combination of Advair and as needed Ventolin HFA inhaler. She has no recent hospitalizations for COPD. Chest x-ray on arrival demonstrating coarsened interstitial densities, greater at the bases. Hyperinflation consistent with COPD. Patient did test positive for COVID-19 on arrival. She denies any prior known COVID-19 infections. She has received her original vaccination as well as several boosters, most recently last fall. CBC: WBC count 3, hemoglobin 14.6, hematocrit 43.7, platelets 241. CMP: Sodium 140, potassium 4, chloride 1 7, serum bicarb 21, BUN 29, creatinine 1.65, glucose 111. LFTs unremarkable. Lactic 1.3. Troponins less than 0.012. NT proBNP 208. Afebrile. Hemodynamics are stable. Patient was today on 10/16/2023, patient is feeling definitely better today compared to how she felt yesterday. Less shortness of breath, less cough, no wheezing. She is on 3 L nasal cannula, O2 saturation is 95%, patient remains on bronchodilators, she is also on Symbicort, albuterol, and on Lovenox. Patient is also receiving Decadron basic metabolic profile today is normal BUN is 35 creatinine 1.03, procalcitonin level is borderline elevated at 0.12 Objective - Vital Signs Vital signs: Vital Signs Temp 97.8 F 10/16/23 16:00 Pulse 77 10/16/23 16:00 Resp 18 10/16/23 16:00 BP 120/75 10/16/23 16:00 Pulse Ox 95 10/16/23 16:00 FiO2 Intake & Output 10/15/23 10/16/23 10/16/23 18:59 06:59 18:59 Intake Total 354 1800 Balance 354 1800 Weight 58.5 kg 63.2 kg Intake: Oral 354 1800 Other: Voiding Method Toilet # Voids 2 2 - Exam GENERAL EXAM: 78-year-old female on 3 L nasal cannula, not in distress. HEAD: Normocephalic and atraumatic EYES: Normal reaction of pupils, equal size. NOSE: Clear with pink turbinates. THROAT: No erythema or exudates. NECK: No masses, no JVD. CHEST: No chest wall deformity. LUNGS: Diminished breath sound bilaterally no crackles rhonchi or wheezes CVS: S1 and S2 normal with no audible murmur, regular rhythm. No extra heart sounds ABDOMEN: No hepatosplenomegaly, active bowel sounds, no guarding or rigidity. SKIN: No rashes CENTRAL NERVOUS SYSTEM: Alert and oriented x 3 no gross focal deficit EXTREMITIES: There is no peripheral edema, clubbing, or cyanosis. Peripheral pulses are intact. - Labs CBC & Chem 7: 10/14/23 16:35 10/16/23 05:36 Labs: Abnormal Lab Results - Last 24 Hours (Table) 10/15/23 10/15/23 10/15/23 Range/Units 16:56 18:00 19:53 Chloride (98-107) mmol/L BUN (7-17) mg/dL Glucose (74-99) mg/dL POC Glucose (mg/dL) 139 H 132 H (70-110) mg/dL Urine Protein Trace H (Negative) 10/16/23 10/16/23 10/16/23 Range/Units 05:36 05:58 11:43 Chloride 110 H (98-107) mmol/L BUN 35 H (7-17) mg/dL Glucose 124 H (74-99) mg/dL POC Glucose (mg/dL) 124 H 111 H (70-110) mg/dL Urine Protein (Negative) Microbiology - Last 24 Hours (Table) 10/15/23 21:46 Gram Stain - Preliminary Sputum Assessment and Plan Assessment: Impression: Acute COPD exacerbation secondary to acute COVID-19 pneumonia Acute hypoxemic respiratory failure, secondary to above Leukopenia Suspect acute kidney injury, unknown baseline creatinine; current creatinine 1. 65 History of hyperlipidemia History of hypertension History of hypothyroidism Former tobacco dependence, quitting over 10 years ago Recommendation: Continue present treatment plan and supportive care measures Continue bronchodilators including albuterol and Symbicort Continue Decadron Continue Lovenox Pepcid for GI prophylaxis Consider discharge planning in the next 24 hours if she continues to do well Time with Patient: Less than 30
[2023-10-16 16:52] LABS: Glucose,Whole Blood 126 mg/dL (70-110)
--- NOTE | 2023-10-16 18:08 | P.PN ---
Progress Note - Text Progress Note Date: 10/16/23 Chief Complaint: Short of breath This is a pleasant 78-year-old patient, follows with Dr. Agapito Leal. For 1 week patient has been congested. Cough. Slight headache. Also had initially slight loose stool. Also felt feverish and having chills. Decreased appetite. Patient also got sick. Patient was [id number] history of smoking stopping about 10 years ago. Patient was 84% room air upon presentation. Tired. October 14: Patient met with COVID pneumonitis and hypoxia. Feeling a bit better today. Sitting at the edge of the bed. Reminded to use incentive spirometry more frequently. Getting IV Decadron. Seen by pulmonary. Eating some October 15: Sitting at the edge of the bed. 3 L nasal cannula. 93%. Eating some. at the bedside. Creatinine much improved. Using incentive spirometry. Getting Decadron. Ambulating in the room. Active Medications Albuterol Sulfate (Albuterol Hfa Inhaler) 4 puff INHALATION Q4H [facility] Last Admin: 10/16/23 16:45 Dose: 4 puff Amlodipine Besylate (Amlodipine 10 Mg Tab) 10 mg PO DAILY [facility] Last Admin: 10/16/23 08:57 Dose: 10 mg Artificial Tears (Artificial Tears-Hypromellose Drops 15 Ml Btl) 1 drops BOTH EYES BID [facility] Last Admin: 10/16/23 08:58 Dose: 1 drops Aspirin (Aspirin 81 Mg) 81 mg PO DAILY [facility] Last Admin: 10/16/23 08:57 Dose: 81 mg Atorvastatin Calcium (Atorvastatin 20 Mg Tab) 20 mg PO DAILY [facility] Last Admin: 10/16/23 08:57 Dose: 20 mg Baclofen (Baclofen 10 Mg Tab) 20 mg PO DAILY PRN PRN Reason: Muscle Spasm Budesonide/Formoterol Fumarate (Symbicort 160-4.5 Mcg Inhaler) 2 puff INHALATION RT-BID [facility] Last Admin: 10/16/23 09:57 Dose: 2 puff Dexamethasone Sodium Phosphate (Dexamethasone Sod Phosphate 10 Mg/Ml 1 Ml Vial) 6 mg IVP BID [facility] Last Admin: 10/16/23 08:57 Dose: 6 mg Enoxaparin Sodium (Enoxaparin 40 Mg/0.4 Ml Syringe) 40 mg SQ DAILY [facility] Famotidine (Famotidine 20 Mg Tab) 20 mg PO DAILY [facility] Last Admin: 10/16/23 08:57 Dose: 20 mg Guaifenesin/Dextromethorphan (Guaifenesin-Dm 100-10mg/5ml 10 Ml Cup) 10 ml PO Q8HR PRN PRN Reason: Cough Last Admin: 10/16/23 13:32 Dose: 10 ml Sodium Chloride (Saline 0.45%) 1,000 mls @ 75 mls/hr IV .[id number] [facility] Last Admin: 10/16/23 17:47 Dose: Not Given Isosorbide Mononitrate (Isosorbide Mononitrate Er 30 Mg Tab.Er.24h) 30 mg PO DAILY [facility] Last Admin: 10/16/23 08:57 Dose: 30 mg Levothyroxine Sodium (Levothyroxine 88 Mcg Tab) 88 mcg PO DAILY@0630 [facility] Last Admin: 10/16/23 06:22 Dose: 88 mcg Lisinopril (Lisinopril 20 Mg Tab) 40 mg PO DAILY [facility] Last Admin: 10/16/23 08:57 Dose: 40 mg Miscellaneous Information (Pneumonia Protocol Utilized 1 Each Misc) 1 each PO ONCE PRN PRN Reason: Per Protocol Social history: Smoked a pack a day for 50 years stopped about 10 years ago. . Physical examination: VITAL SIGNS: 97.8, 77, 18, 120/75, 95% on 3 L GENERAL: Sitting on edge of bed, some shortness of breath EYES: Pupils equal. Conjunctiva jen l. HEENT: External appearance of nose and ears normal, oral cavity grossly normal. NECK: JVD not raised; masses not palpable. HEART: First and second heart sounds are normal; no edema. LUNGS: Respiratory rate increased, decreased breath sounds ABDOMEN: Soft, nontender, liver spleen not palpable, no masses palpable. PSYCH: Alert and oriented x3; mood and affect jen l. MUSCULOSKELETAL:No Clubbing/cyanosis;muscles-grossly intact. OA INVESTIGATIONS, reviewed in the clinical context: October 15: Sodium 139 potassium 4.6 BUN 35 creatinine 1.03 October 13: White count 3 hemoglobin 14.6 platelets 241 sodium 140 potassium 4 BUN 29 creatinine 1.65 Troponin I less than 0.012 proBNP 208 COVID-19 [PCR detected Chest x-ray film personally reviewed by me-scattered basilar infiltrates Assessment and plan: -Acute COVID-19 pneumonitis causing hypoxia: Dexamethasone. 6 mg IV every 12. -Acute hypoxia secondary to COVID-19 pneumonia: Slow to respond On 3 L nasal cannula Incentive spirometry -Acute COPD exacerbation in a prior smoker Albuterol 4 puffs every 4. IV dexamethasone -Abnormal kidney function -Essential hypertension Zestril 40 mg a day Plendil -Hypothyroid Levothyroxine 88 mcg a day -Hyperlipidemia Lipitor 20 mg a day -GERD PPI -Primary osteoarthritis Tylenol as needed -Full code Discussed with patient . Continue current treatment plan. Past Medical History Past Medical History: COPD, GERD/Reflux, Hypertension, Osteoarthritis (OA), Thyroid Disorder Additional Past Medical History / Comment(s): DDD., HX COLON POLYPS. History of Any Multi-Drug Resistant Organisms: None Reported Past Surgical History: Orthopedic Surgery Additional Past Surgical History / Comment(s): colonoscopy with polyps, arthroscopy right knee (2009) , right foot surgery with screw big toe and olivia 2nd toe(2004)., cataracts Past Anesthesia/Blood Transfusion Reactions: No Reported Reaction, Postoperative Nausea & Vomiting (PONV) Additional Past Anesthesia/Blood Transfusion Reaction / Comment(s): nausea after back pain injection Past Psychological History: No Psychological Hx Reported Smoking Status: Former smoker Past Alcohol Use History: Rare Past Drug Use History: None Reported
[2023-10-16 20:20] LABS: Glucose,Whole Blood 174 mg/dL (70-110)
[2023-10-17 05:57] LABS: Glucose,Whole Blood 124 mg/dL (70-110)
[2023-10-17 08:50] VITALS: BP 124/76; PULSE 66; TEMP 97.8
[2023-10-17] MEDS: ENOXAPARIN 40 MG/0.4 ML SYRINGE SQ SCH (08:51)
[2023-10-17 11:34] LABS: Glucose,Whole Blood 108 mg/dL (70-110)
[2023-10-17 12:09] VITALS: BMI 25.2
--- NOTE | 2023-10-17 14:33 | P.PN ---
Subjective Progress Note Date: 10/17/23 Principal diagnosis: Acute exacerbation of COPD secondary to acute COVID-19 pneumonia Patient is an 78-year-old white female with past medical history significant for COPD, former tobacco smoker, hypertension, hyperlipidemia, hypothyroidism. Her primary care provider is Dr. Agapito Yung. She presented emergency room yesterday evening complaining of progressively worsening shortness of breath, a persistent cough with occasional yellow sputum production, rhinorrhea, headache, reduced appetite, intermittent diarrhea. She states that the symptoms started on October 04. Her recently was hospitalized, and then became sick with similar symptoms after discharge. She is currently resting on 4 L/min nasal cannula. She was found to be hypoxic in the emergency department on arrival with an oxygen saturation of 83% on room air. She does not normally wear oxygen. She does have history of COPD. She normally utilizes a combination of Advair and as needed Ventolin HFA inhaler. She has no recent hospitalizations for COPD. Chest x-ray on arrival demonstrating coarsened interstitial densities, greater at the bases. Hyperinflation consistent with COPD. Patient did test positive for COVID-19 on arrival. She denies any prior known COVID-19 infections. She has received her original vaccination as well as several boosters, most recently last fall. CBC: WBC count 3, hemoglobin 14.6, hematocrit 43.7, platelets 241. CMP: Sodium 140, potassium 4, chloride 1 7, serum bicarb 21, BUN 29, creatinine 1.65, glucose 111. LFTs unremarkable. Lactic 1.3. Troponins less than 0.012. NT proBNP 208. Afebrile. Hemodynamics are stable. Patient was today on 10/16/2023, patient is feeling definitely better today compared to how she felt yesterday. Less shortness of breath, less cough, no wheezing. She is on 3 L nasal cannula, O2 saturation is 95%, patient remains on bronchodilators, she is also on Symbicort, albuterol, and on Lovenox. Patient is also receiving Decadron basic metabolic profile today is normal BUN is 35 creatinine 1.03, procalcitonin level is borderline elevated at 0.12 Patient was evaluated today on 10/17/2023, feeling better, breathing easier, remains on 3 L nasal cannula with O2 sat 93%, her O2 sat is 88% on room air. Hence the patient will need to be on home O2. Hardly any cough no wheezing, no shortness of breath no chest pain, patient is on proper bronchodilators, I believe the patient should be considered for discharge home and follow-up on outpatient basis. I will clear the patient for discharge today. Objective - Vital Signs Vital signs: Vital Signs Temp 97.8 F 10/17/23 08:49 Pulse 66 10/17/23 08:49 Resp 18 10/17/23 08:49 BP 124/76 10/17/23 08:49 Pulse Ox 93 L 10/17/23 10:13 FiO2 Intake & Output 10/16/23 10/17/23 10/17/23 18:59 06:59 18:59 Intake Total 2039 480 Balance 2039 480 Weight 64.5 kg 64.5 kg Intake: Oral 2039 480 Other: Voiding Method Toilet Toilet # Voids 2 2 1 - Exam GENERAL EXAM: 78-year-old female on 3 L nasal cannula, not in distress. HEAD: Normocephalic and atraumatic EYES: Normal reaction of pupils, equal size. NOSE: Clear with pink turbinates. THROAT: No erythema or exudates. NECK: No masses, no JVD. CHEST: No chest wall deformity. LUNGS: Diminished breath sound bilaterally no crackles rhonchi or wheezes CVS: S1 and S2 normal with no audible murmur, regular rhythm. No extra heart sounds ABDOMEN: No hepatosplenomegaly, active bowel sounds, no guarding or rigidity. SKIN: No rashes CENTRAL NERVOUS SYSTEM: Alert and oriented x 3 no gross focal deficit EXTREMITIES: There is no peripheral edema, clubbing, or cyanosis. Peripheral pulses are intact. - Labs CBC & Chem 7: 10/14/23 16:35 10/16/23 05:36 Labs: Abnormal Lab Results - Last 24 Hours (Table) 10/16/23 10/16/23 10/17/23 Range/Units 16:50 19:59 05:52 POC Glucose (mg/dL) 126 H 174 H 124 H (70-110) mg/dL Microbiology - Last 24 Hours (Table) 10/15/23 21:46 Gram Stain - Preliminary Sputum Sputum Culture - Preliminary Assessment and Plan Assessment: Impression: Acute COPD exacerbation secondary to acute COVID-19 pneumonia Acute hypoxemic respiratory failure, secondary to above Leukopenia Suspect acute kidney injury, unknown baseline creatinine; current creatinine 1.65 History of hyperlipidemia History of hypertension History of hypothyroidism Former tobacco dependence, quitting over 10 years ago Recommendation: Arrange for discharge home today Arrange for home O2 Continue bronchodilators including albuterol and Symbicort Continue Decadron on outpatient basis for 1 more week Patient to see me on outpatient basis for follow-up on her COPD Time with Patient: Less than 30
--- NOTE | 2023-10-17 20:17 | P.DS ---
Providers Date of admission: 10/14/23 18:30 Expected date of discharge: 10/17/23 Attending physician: Arturo Mcdowell Consults: 10/14/23 21:01 Consult Physician Routine Consulting Provider: James Peña Consult Reason/Comments: COVID-19 hypoxia Do you want consulting provider notified?: Yes Primary care physician: [facility] Course: Chief Complaint: Short of breath This is a pleasant 78-year-old patient, follows with Dr. Agapito Leal. For 1 week patient has been congested. Cough. Slight headache. Also had initially slight loose stool. Also felt feverish and having chills. Decreased appetite. Patient also got sick. Patient was [id number] history of smoking stopping about 10 years ago. Patient was 84% room air upon presentation. Tired. October 14: Patient met with COVID pneumonitis and hypoxia. Feeling a bit better today. Sitting at the edge of the bed. Reminded to use incentive spirometry more frequently. Getting IV Decadron. Seen by pulmonary. Eating some October 15: Sitting at the edge of the bed. 3 L nasal cannula. 93%. Eating some. at the bedside. Creatinine much improved. Using incentive spirometry. Getting Decadron. Ambulating in the room. October 16: Patient remains on 3 times nasal cannula. Cleared by pulmonary. Will discharge on prednisone taper. Continue with incentive spirometry. Cleared by pulmonary. Will follow-up with Dr. Dwyer outpatient. Discussed with patient . Discussion and discharge planning more than 35 minutes Social history: Smoked a pack a day for 50 years stopped about 10 years ago. . Physical examination: VITAL SIGNS: 97.8, 8066, 18, 124/76, 93% on 3 L GENERAL: Sitting on edge of bed, breathing better EYES: Pupils equal. Conjunctiva jen l. HEENT: External appearance of nose and ears normal, oral cavity grossly normal. NECK: JVD not raised; masses not palpable. HEART: First and second heart sounds are normal; no edema. LUNGS: Respiratory rate increased, decreased breath sounds ABDOMEN: Soft, nontender, liver spleen not palpable, no masses palpable. PSYCH: Alert and oriented x3; mood and affect jen l. MUSCULOSKELETAL:No Clubbing/cyanosis;muscles-grossly intact. OA INVESTIGATIONS, reviewed in the clinical context: Procalcitonin 0.06 October 15: Sodium 139 potassium 4.6 BUN 35 creatinine 1.03 October 13: White count 3 hemoglobin 14.6 platelets 241 sodium 140 potassium 4 BUN 29 creatinine 1.65 Troponin I less than 0.012 proBNP 208 COVID-19 [PCR detected Chest x-ray film personally reviewed by me-scattered basilar infiltrates Assessment and plan: -Acute COVID-19 pneumonitis causing hypoxia: Better Dexamethasone. 6 mg IV every 12. -Acute hypoxia secondary to COVID-19 pneumonia:/COPD Discharged on 3 L nasal cannula Incentive spirometry -Acute COPD exacerbation in a prior smoker Albuterol 4 puffs every 4. IV dexamethasone Discharged on prednisone taper. Fluticasone salmeterol inhaler -Acute kidney injury. Likely ATN: Improved -Essential hypertension Zestril 40 mg a day Plendil -Hypothyroid Levothyroxine 88 mcg a day -Hyperlipidemia Lipitor 20 mg a day -GERD PPI -Primary osteoarthritis Tylenol as needed -Full code Disposition: Home Past Medical History Past Medical History: COPD, GERD/Reflux, Hypertension, Osteoarthritis (OA), Thyroid Disorder Additional Past Medical History / Comment(s): DDD., HX COLON POLYPS. History of Any Multi-Drug Resistant Organisms: None Reported Past Surgical History: Orthopedic Surgery Additional Past Surgical History / Comment(s): colonoscopy with polyps, a rthroscopy right knee (2009) , right foot surgery with screw big toe and olivia 2nd toe(2004)., cataracts Past Anesthesia/Blood Transfusion Reactions: No Reported Reaction, Postoperative Nausea & Vomiting (PONV) Additional Past Anesthesia/Blood Transfusion Reaction / Comment(s): nausea after back pain injection Past Psychological History: No Psychological Hx Reported Smoking Status: Former smoker Past Alcohol Use History: Rare Past Drug Use History: None Reported Plan - Discharge Summary Discharge Rx Participant: Yes New Discharge Prescriptions: New predniSONE 10 mg PO DAILY #30 tab Continue Aspirin [Adult Low Dose Aspirin EC] 81 mg PO DAILY Fluticasone Propion/Salmeterol [Fluticasone-Salmeterol 250-50] 1 puff INHALATION RT-BID Cholecalciferol [Vitamin D3 (25 Mcg = 1000 Iu)] 50 mcg PO DAILY Albuterol Inhaler [Ventolin Hfa Inhaler] 2 puff INHALATION RT-Q4H PRN PRN Reason: Shortness Of Breath Krill Oil(Unknown Dose) 1 cap PO Q2D Nitroglycerin Sl Tabs [Nitrostat] 0.4 mg SL Q5M PRN PRN Reason: Chest Pain lisinopriL [Zestril] 40 mg PO DAILY Levothyroxine Sodium 88 mcg PO DAILY Felodipine [Plendil] 10 mg PO DAILY Famotidine [Pepcid] 20 mg PO DAILY Isosorbide Mononitrate ER [Imdur] 30 mg PO DAILY Atorvastatin [Lipitor] 20 mg PO DAILY Propylene Glycol/Peg 400/Pf [Systane 0.3-0.4% Ophth Dropperette] 1 drop BOTH EYES BID Baclofen [Lioresal] 20 mg PO DAILY PRN PRN Reason: Muscle Spasm Discharge Medication List Albuterol Inhaler [Ventolin Hfa Inhaler] 2 puff INHALATION RT-Q4H PRN 08/30/22 [History] Aspirin [Adult Low Dose Aspirin EC] 81 mg PO DAILY 08/30/22 [History] Cholecalciferol [Vitamin D3 (25 Mcg = 1000 Iu)] 50 mcg PO DAILY 08/30/22 [History] Famotidine [Pepcid] 20 mg PO DAILY 08/30/22 [History] Felodipine [Plendil] 10 mg PO DAILY 08/30/22 [History] Fluticasone Propion/Salmeterol [Fluticasone-Salmeterol 250-50] 1 puff INHALATION RT-BID 08/30/22 [History] Isosorbide Mononitrate ER [Imdur] 30 mg PO DAILY 08/30/22 [History] Levothyroxine Sodium 88 mcg PO DAILY 08/30/22 [History] lisinopriL [Zestril] 40 mg PO DAILY 08/30/22 [History] Atorvastatin [Lipitor] 20 mg PO DAILY 10/14/23 [History] Baclofen [Lioresal] 20 mg PO DAILY PRN 10/14/23 [History] Krill Oil(Unknown Dose) 1 cap PO Q2D 10/14/23 [History] Nitroglycerin Sl Tabs [Nitrostat] 0.4 mg SL Q5M PRN 10/14/23 [History] Propylene Glycol/Peg 400/Pf [Systane 0.3-0.4% Ophth Dropperette] 1 drop BOTH EYES BID 10/14/23 [History] predniSONE 10 mg PO DAILY #30 tab 10/17/23 [Rx] Follow up Appointment(s)/Referral(s): Dalton Dwyer MD [STAFF PHYSICIAN] - 11/14/23 9:45 am [facility] [NON-STAFF] - Agapito Leal MD [Primary Care Provider] - 1-2 days (Office is closed for lunch, please call to schedule HOSPITAL follow up apt. ) Patient Instructions/Handouts: Coronavirus Disease 2019 (COVID-19), Pulmonary Edema (DC), COPD (Chronic Obstructive Pulmonary Disease) (DC) Discharge Disposition: HOME WITH HOME HEALTH SERVICES
== END 2023-10-17 15:07 | disposition home health service (06) | DRG 177 ==
LOC: EC 15:40 → 3SCARD 18:30
PROVIDERS: ADMIT Hospitalist; ATTEND Hospitalist
DX: U07.1 COVID-19 (principal); J12.82 Pneumonia due to coronavirus disease 2019; J96.01 Acute respiratory failure with hypoxia; N17.0 Acute kidney failure with tubular necrosis; J44.0 Chronic obstructive pulmonary disease with (acute) lower respiratory infection; J44.1 Chronic obstructive pulmonary disease with (acute) exacerbation; I10 Essential (primary) hypertension; E03.9 Hypothyroidism, unspecified; E78.5 Hyperlipidemia, unspecified; Z79.890 Hormone replacement therapy; M19.91 Primary osteoarthritis, unspecified site; K21.9 Gastro-esophageal reflux disease without esophagitis; M19.90 Unspecified osteoarthritis, unspecified site; Z87.891 Personal history of nicotine dependence; D72.819 Decreased white blood cell count, unspecified; Z79.51 Long term (current) use of inhaled steroids; Z79.82 Long term (current) use of aspirin; Z79.899 Other long term (current) drug therapy; Z86.16 Personal history of COVID-19; Z87.01 Personal history of pneumonia (recurrent); Z87.19 Personal history of other diseases of the digestive system; Z86.010 Personal history of colon polyps; Z88.8 Allergy status to other drugs, medicaments and biological substances
CPT/HCPCS: 36415; 71045; 71046; 76770; 80048; 80053; 81003; 83605; 83880; 84145; 84484; 85025; 85379; 85610; 85730; 87070; 87205; 87449; 87635; 93005; 94640; 94760; 96365; 96375; 99285

== ENCOUNTER → 2023-12-12 | Outpatient (CLI) | payer MEDICARE ==
[2023-12-12 13:00] LABS: African American GFR (CKD) 65 (>60 ml/min/1.73 sqM); Blood Urea Nitrogen 20 mg/dL (7-17); Non-African American GFR(CKD) 56 (>60 ml/min/1.73 sqM)
--- NOTE | 2023-12-12 13:31 | CT ---
Low level EXAMINATION TYPE: CT angio chest DATE OF EXAM: 12/12/2023 COMPARISON: none HISTORY: SOB CT DLP: 409 mGycm CONTRAST: CT chest with contrast and 3D reconstruction with MIP imaging is performed with IV Contrast, patient injected with 80 mL of Isovue 370. Contrast-enhanced CT of the chest was performed through the course of the pulmonary arteries with adamaris g and mediastinal window settings submitted. 3D reconstruction with MIP imaging was also performed. PULMONARY ARTERIES: The pulmonary arteries and their major tributaries are patent. I do not see judie dence for sizable filling defect to suggest pulmonary embolic process. LUNGS: The lungs are clear and free of infiltrate. No evidence for atelectasis. Nodule seen left lowe r lobe measuring 7 mm and 8 mm respectively. Three-month follow-up recommended. No pleural effusion. Moderate to severe emphysematous changes seen. MEDIASTINUM: Thoracic aorta is of normal caliber,however, evaluation is limited given timing of the contrast bolus. If there is concern for thoracic aortic pathology consider MILTON. Correlate clinicall y . The heart is not enlarged. No evidence for mediastinal mass. No mediastinal lymph nodes greater than 1cm. HILAR STRUCTURES: No evidence for mass. No hilar lymph nodes greater than 1 cm. UPPER ABDOMEN: No significant abnormality is seen. IMPRESSION: 1. No evidence for Pulmonary embolism at this time. 2.Nodule seen left lower lobe measuring 7 mm and 8 mm respectively. Three-month follow-up recommended . [facility], , 12/12/2023 1:29 PM
== END | disposition home or self-care (01) ==
LOC: RADCTMAIN 12:13
PROVIDERS: ATTEND Internal Medicine
DX: R06.02 Shortness of breath
CPT/HCPCS: 36415; 71275; 82565; 84520

== ENCOUNTER → 2024-02-06 | Outpatient (CLI) | payer MEDICARE ==
--- NOTE | 2024-02-07 12:43 | CA ---
Transthoracic Echo Report Name: Mariia Dooley Age: 78 Gender: F : 1945 Exam Date: 02/06/2024 13:54 Exam Location: [facility] Ht (in): 62 Wt (lb): 140 Ordering Physician: Dalton Dwyer MD Attending/Referring Phys: Food Production Supervisor Lore Thapa RDCS Procedure CPT: Indications: i10 Cardiac Hx: Technical Quality: Good Contrast 1: Total Dose (mL): Contrast 2: Total Dose (mL): MEASUREMENTS (Male / Female) Normal Values 2D ECHO LV Diastolic Diameter PLAX 4.3 cm 4.2 - 5.9 / 3.9 - 5.3 cm LV Systolic Diameter PLAX 2.6 cm IVS Diastolic Thickness 1.3 cm 0.6 - 1.0 / 0.6 - 0.9 cm LVPW Diastolic Thickness 1.2 cm 0.6 - 1.0 / 0.6 - 0.9 cm LV Relative Wall Thickness 0.6 RV Internal Dim ED PLAX 3.4 cm LA Systolic Diameter LX 3.8 cm 3.0 - 4.0 / 2.7 - 3.8 cm LV Diastolic Volume MOD BP 48.7 cm??? 67 - 155 / 56 - 104 cm??? LV Systolic Volume MOD BP 18.2 cm??? 22 - 58 / 19 - 49 cm??? LV Ejection Fraction MOD BP 62.7 % >= 55 % LV Cardiac Index MOD BP 1346.2 cm???/min???m??? LV Diastolic Volume MOD 4C 43.0 cm??? LV Systolic Volume MOD 4C 18.6 cm??? LV Ejection Fraction MOD 4C 56.7 % LV Cardiac Index MOD 4C 1075.1 cm???/min???m??? LV Diastolic Length 4C 6.9 cm LV Systolic Length 4C 6.1 cm LV Diastolic Volume MOD 2C 53.6 cm??? LV Systolic Volume MOD 2C 17.8 cm??? LV Ejection Fraction MOD 2C 66.8 % LV Cardiac Index MOD 2C 1578.1 cm???/min???m??? LV Diastolic Length 2C 6.6 cm LV Systolic Length 2C 6.3 cm LA Volume 52.3 cm??? 18 - 58 / 22 - 52 cm??? LA Volume Index 31.1 cm???/m??? 16 - 28 cm???/m??? M-MODE Aortic Root Diameter MM 3.1 cm AV Cusp Separation MM 1.9 cm DOPPLER AV Peak Velocity 244.0 cm/s AV Peak Gradient 23.8 mmHg AV Mean Velocity 165.2 cm/s AV Mean Gradient 12.7 mmHg AV Velocity Time Integral 45.9 cm AI Peak Velocity 335.3 cm/s AI Peak Gradient 45.0 mmHg AI Pressure Half Time 1363.8 ms LVOT Peak Velocity 131.3 cm/s LVOT Peak Gradient 6.9 mmHg LVOT Velocity Time Integral 22.4 cm MV Area PHT 2.9 cm??? Mitral E Point Velocity 76.7 cm/s Mitral A Point Velocity 124.1 cm/s Mitral E to A Ratio 0.6 MV Deceleration Time 262.9 ms TR Peak Velocity 285.9 cm/s TR Peak Gradient 32.7 mmHg Right Ventricular Systolic Press 37.3 mmHg FINDINGS Left Ventricle Left ventricular ejection fraction is estimated at 55-60 %. Left ventricular cavity size normal. Mildly increased septal wall thickness. Mildly increased posterior wall thickness. Normal left ventricular wall motion. Right Ventricle Normal RV size. Mild pulmonary hypertension. Right Atrium Normal right atrial size. No right atrial thrombus or mass seen. Left Atrium Mildly increased left atrial volume. No left atrial thrombus or mass present. Mitral Valve Mild thickening/calcification of the posterior mitral valve leaflet. No mitral stenosis, regurgitation or prolapse. Aortic Valve Trileaflet aortic valve. Aortic valve sclerosis. Mild aortic stenosis with a peak gradient of 24 mmHg and a mean gradient of 13 mmHg. Mild aortic regurgitation. Tricuspid Valve Structurally normal tricuspid valve. Mild tricuspid regurgitation. Pulmonic Valve Structurally normal pulmonic valve. No pulmonic regurgitation. Pericardium No pericardial or pleural effusion. Aorta Normal size aortic root and proximal ascending aorta. CONCLUSIONS Left ventricular ejection fraction is estimated at 55-60 %. Mild concentric LVH Mild aortic stenosis, mean gradient 13 mmHg, mild aortic regurgitation, calcific aortic valve Mild tricuspid regurgitation Mild pulmonary hypertension, RVSP 37 mmHg Previewed by: Dr Kenton Wylie (Electronically Signed) Final Date: 07 February 2024 12:42
== END | disposition home or self-care (01) ==
LOC: RADECHMAIN 13:39
PROVIDERS: ATTEND Internal Medicine
DX: I27.20 Pulmonary hypertension, unspecified (principal); I08.2 Rheumatic disorders of both aortic and tricuspid valves
CPT/HCPCS: 93306

== ENCOUNTER → 2024-02-27 | Outpatient (CLI) | payer MEDICARE ==
--- NOTE | 2024-02-27 11:47 | MR ---
EXAMINATION TYPE: MR cervical spine wo con DATE OF EXAM: 02/27/2024 8:51 AM COMPARISON: None. CLINICAL INDICATION: Female, 78 years old with history of M50.122 CERVICAL DISC DISORDER AT C5-C6 LEV EL WITH, Neck pain into Left shoulder x1.5 months IV Contrast: cc (None if empty) TECHNIQUE: Multiplanar, multisequence images of the cervical spine were acquired without contrast. Findings: There is pannus formation at the C1/C2 articulation raising the question of rheumatoid arthritis. The craniovertebral junction relationships and prevertebral soft tissues are normal. The cervical vertebral segments are normal in height and is no fracture. There is a 2 to 3 mm anterol isthesis of C4 on C5. There is a 2 to 3 mm retrolisthesis of C5 on C6. There is moderate narrowing, decreased signal intensity in circumferential disc bulge at the C5-6 and C6-7 levels indicating moderate degenerative disease. There is mild degenerative disease with mild p osterior disc bulge at the C3-4 and C4-5 levels. Secondary to the degenerative changes there is loss of normal cervical lordosis. There is no cervical disc herniation. Secondary to posterior spondylosis and disc bulge, there is moderate cervical stenosis at the C5-6 le [place]. The cervical cord is normal in size. There is multilevel neural foraminal stenosis as follows; severe at C4-5 on the right, severe at C5-6 bilaterally, severe at C6-7 bilaterally.. IMPRESSION: 1. Multilevel degenerative disease, moderate C5-6 and C6-7. 2. Moderate cervical stenosis at C5-6 3. Normal cervical cord. 4. No disc herniation 5.multilevel neural foraminal stenosis severe at multiple levels as described above. [facility], , 02/27/2024 11:44 AM
== END | disposition home or self-care (01) ==
LOC: RADMRIMAIN 08:13
PROVIDERS: ATTEND Physical Medicine & Rehabilitation
DX: M50.122 Cervical disc disorder at C5-C6 level with radiculopathy (principal); M48.02 Spinal stenosis, cervical region; M99.71 Connective tissue and disc stenosis of intervertebral foramina of cervical region
CPT/HCPCS: 72141

== ENCOUNTER 2024-03-18 09:34 | Inpatient (IN) | payer MEDICARE ==
--- NOTE | 2024-03-18 10:04 | ED ---
General Adult HPI - General Chief complaint: Chest Pain Stated complaint: cp Time Seen by Provider: 03/18/24 09:40 Source: patient, family, RN notes reviewed Mode of arrival: ambulatory Limitations: no limitations - History of Present Illness Initial comments: Patient is an 78-year-old female present to the emergency department with concerns for chest discomfort and dyspnea. Onset of symptoms was last night. Discomfort feels like an ache. Discomfort is left chest mostly under the breast. Patient states she also feels short of breath. Patient states discomfort increases with deep breath or cough otherwise is not really coughing. No history of similar symptoms previously. Discomfort is rated 8/10. - Related Data Home Medications Medication Instructions Recorded Confirmed Albuterol Inhaler [Ventolin Hfa 2 puff INHALATION RT-Q4H PRN 08/30/22 10/14/23 Inhaler] Aspirin [Adult Low Dose Aspirin EC] 81 mg PO DAILY 08/30/22 10/14/23 Cholecalciferol [Vitamin D3 (25 50 mcg PO DAILY 08/30/22 10/14/23 Mcg = 1000 Iu)] Famotidine [Pepcid] 20 mg PO DAILY 08/30/22 10/14/23 Felodipine [Plendil] 10 mg PO DAILY 08/30/22 10/14/23 Fluticasone Propion/Salmeterol 1 puff INHALATION RT-BID 08/30/22 10/14/23 [Fluticasone-Salmeterol 250-50] Isosorbide Mononitrate ER [Imdur] 30 mg PO DAILY 08/30/22 10/14/23 Levothyroxine Sodium 88 mcg PO DAILY 08/30/22 10/14/23 lisinopriL [Zestril] 40 mg PO DAILY 08/30/22 10/14/23 Atorvastatin [Lipitor] 20 mg PO DAILY 10/14/23 10/14/23 Baclofen [Lioresal] 20 mg PO DAILY PRN 10/14/23 10/14/23 Krill Oil(Unknown Dose) 1 cap PO Q2D 10/14/23 10/14/23 Nitroglycerin Sl Tabs [Nitrostat] 0.4 mg SL Q5M PRN 10/14/23 10/14/23 Propylene Glycol/Peg 400/Pf 1 drop BOTH EYES BID 10/14/23 10/14/23 [Systane 0.3-0.4% Ophth Dropperette] Previous Rx's Medication Instructions Recorded predniSONE 10 mg PO DAILY #30 tab 10/17/23 Allergies Allergy/AdvReac Type Severity Reaction Status Date / Time brimonidine [From Combigan] Allergy Unknown crusty Verified 10/14/23 19:28 around eye lid timolol [From Combigan] Allergy Unknown crusty Verified 10/14/23 19:28 around eye lid Review of Systems ROS Statement: Those systems with pertinent positive or pertinent negative responses have been documented in the HPI. ROS Other: All systems not noted in ROS Statement are negative. Constitutional: Denies: fever Eyes: Denies: eye pain ENT: Denies: ear pain Respiratory: Reports: as per HPI, dyspnea Cardiovascular: Reports: as per HPI, chest pain Endocrine: Denies: fatigue Gastrointestinal: Denies: abdominal pain Musculoskeletal: Denies: back pain Past Medical History Past Medical History: COPD, GERD/Reflux, Hypertension, Osteoarthritis (OA), Thyroid Disorder Additional Past Medical History / Comment(s): DDD., HX COLON POLYPS. History of Any Multi-Drug Resistant Organisms: None Reported Past Surgical History: Orthopedic Surgery Additional Past Surgical History / Comment(s): colonoscopy with polyps, arthroscopy right knee (2009) , right foot surgery with screw big toe and olivia 2nd toe(2004)., cataracts Past Anesthesia/Blood Transfusion Reactions: No Reported Reaction, Postoperative Nausea & Vomiting (PONV) Additional Past Anesthesia/Blood Transfusion Reaction / Comment(s): nausea after back pain injection Past Psychological History: No Psychological Hx Reported Smoking Status: Former smoker Past Alcohol Use History: Rare Past Drug Use History: None Reported - Past Family History Mother Family Medical History: No Reported History Additional Family Medical History / Comment(s): mothers sister had cancer General Exam Limitations: no limitations General appearance: alert, in no apparent distress Head exam: Present: normocephalic Eye exam: Present: normal appearance Neck exam: Present: normal inspection Respiratory exam: Present: normal lung sounds bilaterally. Absent: chest wall tenderness Cardiovascular Exam: Present: regular rate, normal rhythm, systolic murmur (Patient states chronic) Expanded Peripheral pulses: 2+: Radial (R), Radial (L), Posterior Tibialis (R), Posterior Tibialis (L) GI/Abdominal exam: Present: soft. Absent: tenderness Extremities exam: Present: normal inspection. Absent: pedal edema, calf tenderness Neurological exam: Present: alert Psychiatric exam: Present: normal affect, normal mood Skin exam: Present: normal color Course Vital Signs 03/18/24 03/18/24 03/18/24 09:43 09:55 09:57 Temperature 98 F Pulse Rate 93 85 Respiratory 20 20 20 Rate Blood Pressure 112/62 140/60 O2 Sat by Pulse 91 L 93 L Oximetry 03/18/24 03/18/24 03/18/24 10:27 10:29 10:58 Temperature Pulse Rate 85 80 Respiratory 22 20 16 Rate Blood Pressure 117/77 97/64 O2 Sat by Pulse 93 L 93 L Oximetry 03/18/24 11:58 Temperature Pulse Rate 68 Respiratory 16 Rate Blood Pressure 101/66 O2 Sat by Pulse 96 Oximetry EKG Findings - EKG Results: EKG: interpreted by ERMD (Anterior septal Q waves. Nonspecific ST-T.), sinus rhythm, normal axis Medical Decision Making - Medical Decision Making Was pt. sent in by a medical professional or institution (Dr. PA, FILM TESTS CHECKER, urgent care, hospital, or skilled nursing...) When possible be specific @ -No Did you speak to anyone other than the patient for history (EMS, parent, family, police, friend...)? What history was obtained from this source @ -No Did you review nursing and triage notes (agree or disagree)? Why? @ -I reviewed and agree with nursing and triage notes Were old charts reviewed (outside hosp., previous admission, EMS record, old EKG, old radiological studies, urgent care reports/EKG's, skilled nursing records)? Report findings @ -No old charts were reviewed Differential Diagnosis (chest pain, altered mental status, abdominal pain women, abdominal pain men, vaginal bleeding, weakness, fever, dyspnea, syncope, headache, dizziness, GI bleed, back pain, seizure, CVA, palpatations, mental health, musculoskeletal)? @ -MDM differential chest pain. MDM differential chest pain differential Chest Pain: Stable Angina, Unstable Angina, STEMI, NSTEMI Aortic Dissection, Pneumothorax, Musculoskeletal, Esophageal Spasm GERD, Cholecystitis, Pancreatitis, Zoster, this is not meant to be an all-inclusive list. Differential Dyspnea: Coronary syndrome, arrhythmia, tamponade, asthma, COPD, pulmonary embolism, pneumonia, pneumothorax, pulmonary effusion, anaphylaxis, diabetic ketoacidosis, flailed chest, pulmonary contusion, diaphragmatic rupture, anemia, neuromuscular, this is not meant to be an all-inclusive list. EKG interpreted by me (3pts min.). @ -As above X-rays interpreted by me (1pt min.). @ -Chest x-ray shows left lower lobe infiltrate CT interpreted by me (1pt min.). @ -None done U/S interpreted by me (1pt. min.). @ -None done What testing was considered but not performed or refused? (CT, X-rays, U/S, labs)? Why? @ -CT scan of the chest has been ordered secondary to elevated D-dimer What meds were considered but not given or refused? Why? @ -None Did you discuss the management of the patient with other professionals (pr ofessionals i.e. , PA, FILM TESTS CHECKER, lab, RT, psych nurse, social media specialist, profiling machine setup operator, teacher, civilian jail officer, immigration case worker)? Give summary @ -Case discussed with Dr. Gomez Was smoking cessation discussed for >3mins.? @ -No Was critical care preformed (if so, how long)? @ -33 minutes critical care time provided Were there social determinants of health that impacted care today? How? (Homelessness, low income, unemployed, alcoholism, drug addiction, transportation, low edu. Level, literacy, decrease access to med. care, retirement, rehab)? @ -No Was there de-escalation of care discussed even if they declined (Discuss DNR or withdrawal of care, Hospice)? DNR status @ -No What co-morbidities impacted this encounter? (DM, HTN, Smoking, COPD, CAD, Cancer, CVA, ARF, Chemo, Hep., AIDS, mental health diagnosis, sleep apnea, morbid obesity)? @ -None Was patient admitted / discharged? Hospital course, mention meds given and route, prescriptions, significant lab abnormalities, going to OR and other pertinent info. @ -Patient presents with atypical chest discomfort and dyspnea. X-ray concerning for pneumonia. D-dimer is elevated therefore CT scan of the chest will be added. Patient reevaluated and updated. Case was discussed with Dr. Gomez who will admit covering Dr. Mcdowell who admits for Dr. Yung. Admission orders written. Consult placed. There is concern for potential sepsis diagnosed at 12:01 PM. Blood culture and lactic acid and IV antibiotics have all been ordered. Undiagnosed new problem with uncertain prognosis? @ -No Drug Therapy requiring intensive monitoring for toxicity (Heparin, Nitro, Insulin, Cardizem)? @ -No Were any procedures done? @ -No Diagnosis/symptom? @ -Pneumonia, sepsis Acute, or Chronic, or Acute on Chronic? @ -Acute, acute Uncomplicated (without systemic symptoms) or Complicated (systemic symptoms)? @ -Default Side effects of treatment? @ -No Exacerbation, Progression, or Severe Exacerbation? @ -No Poses a threat to life or bodily function? How? (Chest pain, [place], [place], pneumonia, PE, COPD, DKA, ARF, appy, cholecystitis, CVA, Diverticulitis, Homicidal, Suicidal, threat to staff... and all critical care pts) @ -Threat to pulmonary function - Lab Data Result diagrams: 03/18/24 10:00 03/18/24 10:00 Lab Results 03/18/24 03/18/24 03/18/24 Range/Units 10:00 10:00 10:00 WBC 17.7 H (3.8-10.6) k/uL RBC 4.24 (3.80-5.40) m/uL Hgb 12.9 (11.4-16.0) gm/dL Hct 37.9 (34.0-46.0) % MCV 89.5 (80.0-100.0) fL MCH 30.5 (25.0-35.0) pg MCHC 34.1 (31.0-37.0) g/dL RDW 12.9 (11.5-15.5) % Plt Count 211 (150-450) k/uL MPV 6.8 Neutrophils % 91 % Lymphocytes % 4 % Monocytes % 4 % Eosinophils % 0 % Basophils % 0 % Neutrophils # 16.1 H (1.3-7.7) k/uL Lymphocytes # 0.7 L (1.0-4.8) k/uL Monocytes # 0.7 (0-1.0) k/uL Eosinophils # 0.0 (0-0.7) k/uL Basophils # 0.0 (0-0.2) k/uL PT 11.3 (10.0-12.5) sec INR 1.0 (<1.2) APTT 22.7 (22.0-30.0) sec D-Dimer 1.03 H (<0.60) mg/L FEU Sodium 140 (137-145) mmol/L Potassium 3.8 (3.5-5.1) mmol/L Chloride 106 (98-107) mmol/L Carbon Dioxide 24 (22-30) mmol/L Anion Gap 10 mmol/L BUN 31 H (7-17) mg/dL Creatinine 0.90 (0.52-1.04) mg/dL Est GFR (CKD-EPI)AfAm 70 (>60 ml/min/1.73 sqM) Est GFR (CKD-EPI)NonAf 61 (>60 ml/min/1.73 sqM) Glucose 125 H (74-99) mg/dL Calcium 10.6 H (8.4-10.2) mg/dL Magnesium 1.4 L (1.6-2.3) mg/dL Total Bilirubin 0.9 (0.2-1.3) mg/dL AST 20 (14-36) U/L ALT 16 (4-34) U/L Alkaline Phosphatase 58 (38-126) U/L Troponin I (0.000-0.034) ng/mL NT-Pro-B Natriuret Pep 1360 pg/mL Total Protein 6.3 (6.3-8.2) g/dL Albumin 3.9 (3.5-5.0) g/dL 03/18/24 Range/Units 10:00 WBC (3.8-10.6) k/uL RBC (3.80-5.40) m/uL Hgb (11.4-16.0) gm/dL Hct (34.0-46.0) % MCV (80.0-100.0) fL MCH (25.0-35.0) pg MCHC (31.0-37.0) g/dL RDW (11.5-15.5) % Plt Count (150-450) k/uL MPV Neutrophils % % Lymphocytes % % Monocytes % % Eosinophils % % Basophils % % Neutrophils # (1.3-7.7) k/uL Lymphocytes # (1.0-4.8) k/uL Monocytes # (0-1.0) k/uL Eosinophils # (0-0.7) k/uL Basophils # (0-0.2) k/uL PT (10.0-12.5) sec INR (<1.2) APTT (22.0-30.0) sec D-Dimer (<0.60) mg/L FEU Sodium (137-145) mmol/L Potassium (3.5-5.1) mmol/L Chloride (98-107) mmol/L Carbon Dioxide (22-30) mmol/L Anion Gap mmol/L BUN (7-17) mg/dL Creatinine (0.52-1.04) mg/dL Est GFR (CKD-EPI)AfAm (>60 ml/min/1.73 sqM) Est GFR (CKD-EPI)NonAf (>60 ml/min/1.73 sqM) Glucose (74-99) mg/dL Calcium (8.4-10.2) mg/dL Magnesium (1.6-2.3) mg/dL Total Bilirubin (0.2-1.3) mg/dL AST (14-36) U/L ALT (4-34) U/L Alkaline Phosphatase (38-126) U/L Troponin I <0.012 (0.000-0.034) ng/mL NT-Pro-B Natriuret Pep pg/mL Total Protein (6.3-8.2) g/dL Albumin (3.5-5.0) g/dL Critical Care Time Critical Care Time: Yes Disposition Clinical Impression: Pneumonia Disposition: ADMITTED IP TO THIS [facility] Condition: Serious Is patient prescribed a controlled substance at d/c from ED?: No Referrals: Agapito Leal MD [Primary Care Provider] - 1-2 days Time of Disposition: 12:17
[2024-03-18 10:21] LABS: Basophils % (A) 0 %; Eosinophils % (A) 0 %; HCT 37.9 % (34.0-46.0); HGB 12.9 gm/dL (11.4-16.0); Lymphocytes # (A) 0.7 k/uL (1.0-4.8); Lymphocytes % (A) 4 %; MCH 30.5 pg (25.0-35.0); MCHC 34.1 g/dL (31.0-37.0); MCV 89.5 fL (80.0-100.0); Mean Platelet Volume 6.8; Monocytes # (A) 0.7 k/uL (0-1.0); Monocytes % (A) 4 %; Neutrophils # (A) 16.1 k/uL (1.3-7.7); Neutrophils % (A) 91 %; Platelet Count 211 k/uL (150-450); RBC 4.24 m/uL (3.80-5.40); RDW 12.9 % (11.5-15.5); WBC 17.7 k/uL (3.8-10.6)
[2024-03-18] MEDS: ASPIRIN 81 MG PO STA (10:24)
[2024-03-18] MEDS: NITROGLYCERIN SL TABS 0.4 MG TAB SUBLINGUAL STA (10:26)
[2024-03-18 10:33] LABS: ALT 16 U/L (4-34); AST 20 U/L (14-36); African American GFR (CKD) 70 (>60 ml/min/1.73 sqM); Albumin 3.9 g/dL (3.5-5.0); Alkaline Phosphatase 58 U/L (38-126); Anion Gap 10 mmol/L; Blood Urea Nitrogen 31 mg/dL (7-17); Calcium 10.6 mg/dL (8.4-10.2); Carbon Dioxide 24 mmol/L (22-30); Chloride 106 mmol/L (98-107); Glucose 125 mg/dL (74-99); Magnesium 1.4 mg/dL (1.6-2.3); Non-African American GFR(CKD) 61 (>60 ml/min/1.73 sqM); Potassium 3.8 mmol/L (3.5-5.1); Sodium 140 mmol/L (137-145); Total Bilirubin 0.9 mg/dL (0.2-1.3); Total Protein 6.3 g/dL (6.3-8.2)
[2024-03-18 10:35] LABS: Partial Thromboplastin Time 22.7 sec (22.0-30.0); Prothrombin Time 11.3 sec (10.0-12.5)
[2024-03-18 10:41] LABS: NT-Pro-B-Type Natriuretic Pept 1360 pg/mL
[2024-03-18] MEDS: MORPHINE SULFATE 4 MG/ML SYRINGE IVP STA (10:56)
--- NOTE | 2024-03-18 11:18 | XR ---
EXAMINATION TYPE: XR chest 2V DATE OF EXAM: 03/18/2024 10:38 AM COMPARISON: 10/15/2023 CLINICAL INDICATION: Female, 78 years old with history of Chest Pain, TECHNIQUE: XR chest 2V view(s) obtained. FINDINGS: The heart size is enlarged. The pulmonary vasculature is normal. Mild left perihilar infiltrate is present. Correlate for pneumonia. IMPRESSION: 1. Infiltrate in the left perihilar region. Correlate for pneumonia. Follow-up be performed [facility], Workstation: [facility], 03/18/2024 11:15 AM
[2024-03-18] MEDS ORDERED: IPRATROPIUM-ALBUTEROL 3 ML NEB INHALATION PRN (12:12)
[2024-03-18] MEDS ORDERED: PNEUMONIA PROTOCOL UTILIZED 1 EACH MISC PO PRN (12:12)
[2024-03-18] MEDS: MAGNESIUM OXIDE 400 MG TAB PO STA (12:32)
[2024-03-18] MEDS: SODIUM CHLORIDE 0.9% 1,000 ML IV SCH (12:32)
[2024-03-18] MEDS: AZITHROMYCIN 500 MG in SODIUM CHLORIDE 0.9% 250 ML IVPB STA (12:37)
[2024-03-18] MEDS ORDERED: traMADol 50 MG TAB PO PRN (14:31)
[2024-03-18] MEDS: IPRATROPIUM-ALBUTEROL 3 ML NEB INHALATION SCH (16:05)
--- NOTE | 2024-03-18 16:32 | CT ---
EXAMINATION TYPE: CT angio chest DATE OF EXAM: 03/18/2024 1:46 PM COMPARISON: None. CLINICAL INDICATION: Female, 78 years old with history of cal, CAL TECHNIQUE: CT of the chest is performed on a spiral scan at 2 mm thick sections. Study is performed with intravenous contrast timed for evaluation for pulmonary embolism. This will limit additional po rtions of the evaluation. 3-D MIP images reconstructed by the technologist are reviewed on the compu ter in the coronal and sagittal planes. Contrast used:100 mL of Isovue 300 with IV Contrast, (none if empty) Oral contrast used: (none if empty) CT DLP: 250.8 mGycm, Automated exposure control for dose reduction was used. FINDINGS: No persistent filling defects are evident to suggest an acute pulmonary embolism. No mediastinal or hilar adenopathy enlarged by CT criteria is evident. The ascending aorta diameter at the level of the main pulmonary artery is 3.9 cm. The main pulmonary artery diameter at the bifurcation is 3.00 cm. Emphysematous changes are present. Some pulmonary fibrosis is present. There is a consolidation within the lingula. Correlate for pneumonia superimposed on pulmonary fibros is. Limited CT sections were through the upper abdomen. Upper abdomen appears unremarkable. IMPRESSION: 1. Advanced emphysematous changes. 2. Clinical correlation for pneumonia within the lingula. Follow-up CT chest is recommended. Underlyi ng mass is not excluded. [facility], Workstation: [email or web address], 03/18/2024 4:30 PM
[2024-03-18] MEDS: SYMBICORT 80-4.5 MCG INHALER INHALATION SCH (20:03)
[2024-03-18] MEDS: ARTIFICIAL TEARS-HYPROMELLOSE DROPS 15 ML BTL BOTH EYES SCH (20:13)
--- NOTE | 2024-03-19 05:40 | P.CNPUL ---
History of Present Illness Consult date: 03/19/24 Requesting physician: Bladimir Hamlin Reason for consult: pneumonia Chief complaint: Shortness of breath, left-sided chest pain, History of present illness: Patient is an 78-year-old white female with past medical history significant for COPD, former tobacco smoker, hypertension, hyperlipidemia, hypothyroidism, "leaky valve". She follows in the pulmonary office with Dr. Dwyer for management of her COPD. She has an FEV1 63% of predicted. She normally utilizes a combination of Advair and as needed Ventolin HFA inhaler. Presented the emergency department yesterday morning with a chief complaint of left-sided chest pain, rated 8/10 on a 10 point numerical scale, especially worse with coug cayden and deep breathing. Associated persistent nonproductive cough and progressively worsening shortness of breath since Saturday. No significant fevers, chills, sputum production, hemoptysis. She does normally use 3 L/min home O2. Denies any nausea, vomiting, diarrhea. Oral intake has been poor. Chest x-ray taken on arrival showing a left perihilar infiltrate. Follow-up chest CTA negative for filling defects, shows advanced emphysematous changes, as well as, a new lingular consolidation when compared to previous chest CTA taken November,. CBC remarkable for leukocytosis with left shift. CMP: Sodium 140, potassium 3.8, chloride 106, serum bicarb 24, BUN 31, creatinine 0.9, gluc ose 125. Magnesium 1.4. LFTs unremarkable. Troponins less than 0.012 x 3. NT proBNP 1360. EKG demonstrating sinus rhythm, rate 91 bpm, no acute ischemic abnormalities. She has been started on a combination of Rocephin and azithromycin in the ED. On my initial evaluation, remains in the emergency department. She is on 3 L/min nasal cannula, which she wears at home. Not in any respiratory distress. Continues to have a dry congested cough. Current vitals: Heart rate 80 bpm, blood pressure 119/73 mmHg, nontachypneic, SpO2 91% on 3 L/min nasal cannula. Review of Systems Constitutional: Reports fatigue, Reports poor appetite, Denies chills, Denies fever, Denies night sweats, Denies weight gain, Denies weight loss Ears, nose, mouth and throat: Denies headache, Denies nasal congestion, Denies nasal discharge, Denies post-nasal drip, Denies sinus pain, Denies sinus pressure, Denies sore throat Cardiovascular: Reports chest pain, Denies leg edema, Denies lightheadedness, Denies orthopnea, Denies palpitations, Denies paroxysmal nocturnal dyspnea, Denies syncope Respiratory: Reports as per HPI Gastrointestinal: Denies abdominal pain, Denies change in bowel habits, Denies diarrhea, Denies nausea, Denies vomiting Genitourinary: Denies dysuria Musculoskeletal: Denies limitation of motion Integumentary: Denies rash Neurological: Denies seizures, Denies syncope Psychiatric: Denies anxiety, Denies depression Past Medical History Past Medical History: COPD, GERD/Reflux, Hypertension, Osteoarthritis (OA), Thyroid Disorder Additional Past Medical History / Comment(s): DDD., HX COLON POLYPS. History of Any Multi-Drug Resistant Organisms: None Reported Past Surgical History: Orthopedic Surgery Additional Past Surgical History / Comment(s): colonoscopy with polyps, arthroscopy right knee (2009) , right foot surgery with screw big toe and olivia 2nd toe(2004)., cataracts Past Anesthesia/Blood Transfusion Reactions: No Reported Reaction, Postoperative Nausea & Vomiting (PONV) Additional Past Anesthesia/Blood Transfusion Reaction / Comment(s): nausea after back pain injection Past Psychological History: No Psychological Hx Reported Smoking Status: Former smoker Past Alcohol Use History: Rare Past Drug Use History: None Reported - Past Family History Mother Family Medical History: No Reported History Additional Family Medical History / Comment(s): mothers sister had cancer Medications and Allergies Home Medications Medication Instructions Recorded Confirmed Type Albuterol Inhaler [Ventolin Hfa 2 puff INHALATION RT-Q4H PRN 08/30/22 03/18/24 History Inhaler] Aspirin [Adult Low Dose Aspirin EC] 81 mg PO DAILY 08/30/22 03/18/24 History Cholecalciferol [Vitamin D3 (25 50 mcg PO DAILY 08/30/22 03/18/24 History Mcg = 1000 Iu)] Famotidine [Pepcid] 20 mg PO DAILY 08/30/22 03/18/24 History Felodipine [Plendil] 10 mg PO DAILY 08/30/22 03/18/24 History Fluticasone Propion/Salmeterol 1 puff INHALATION RT-BID 08/30/22 03/18/24 History [Fluticasone-Salmeterol 250-50] Isosorbide Mononitrate ER [Imdur] 30 mg PO DAILY 08/30/22 03/18/24 History Levothyroxine Sodium 88 mcg PO DAILY 08/30/22 03/18/24 History lisinopriL [Zestril] 40 mg PO DAILY 08/30/22 03/18/24 History Atorvastatin [Lipitor] 20 mg PO DAILY 10/14/23 03/18/24 History Nitroglycerin Sl Tabs [Nitrostat] 0.4 mg SL Q5M PRN 10/14/23 03/18/24 History Propylene Glycol/Peg 400/Pf 1 drop BOTH EYES BID 10/14/23 03/18/24 History [Systane 0.3-0.4% Oph Dropperette] traMADol HCL 50 mg PO BID PRN 03/18/24 03/18/24 History Allergies Allergy/AdvReac Type Severity Reaction Status Date / Time brimonidine [From Combigan] AdvReac Unknown crusty Verified 03/18/24 12:48 around eye lid timolol [From Combigan] AdvReac Unknown crusty Verified 03/18/24 12:48 around eye lid Physical Exam Vitals: Vital Signs Temp Pulse Resp BP Pulse Ox 03/19/24 02:00 80 20 119/73 91 L 03/18/24 22:00 89 18 109/69 90 L 03/18/24 20:13 90 03/18/24 20:03 87 03/18/24 18:00 88 20 104/66 94 L 03/18/24 17:00 90 20 101/78 92 L 03/18/24 16:14 80 03/18/24 16:05 84 03/18/24 15:00 78 20 113/80 95 03/18/24 14:00 77 20 110/77 96 03/18/24 11:58 68 16 101/66 96 03/18/24 10:58 80 16 97/64 93 L 03/18/24 10:29 20 03/18/24 10:27 85 22 117/77 93 L 03/18/24 09:57 20 03/18/24 09:55 85 20 140/60 93 L 03/18/24 09:43 98 F 93 20 112/62 91 L Intake and Output 03/18/24 03/18/24 03/19/24 14:59 22:59 06:59 Other: Weight 63.049 kg GENERAL EXAM: Alert, 78-year-old well-nourished female, comfortable in no apparent distress. HEAD: Normocephalic and atraumatic EYES: Normal reaction of pupils, equal size. NOSE: Clear with pink turbinates. THROAT: No erythema or exudates. NECK: No masses, no JVD. CHEST: No chest wall deformity. LUNGS: Equal air entry with left basilar dullness and inspiratory crackles. On 3 L/min nasal cannula, SpO2 90%. No conversational dyspnea or accessory muscle use.. CVS: S1 and S2 normal with grade 2 systolic murmur, regular rhythm. No other extra heart sounds ABDOMEN: No hepatosplenomegaly, active bowel sounds, no guarding or rigidity. SPINE: No scoliosis or deformity SKIN: No rashes CENTRAL NERVOUS SYSTEM: No focal deficits, tone is normal in all 4 extremities. EXTREMITIES: There is no peripheral edema, clubbing, or cyanosis. Peripheral pulses are intact. Results - Laboratory Findings CBC and BMP: 03/18/24 10:00 03/18/24 10:00 PT/INR, D-dimer PT 11.3 sec (10.0-12.5) 03/18/24 10:00 INR 1.0 (<1.2) 03/18/24 10:00 D-Dimer 1.03 mg/L FEU (<0.60) H 03/18/24 10:00 Abnormal lab findings: Abnormal Labs 03/18/24 03/18/24 03/18/24 10:00 10:00 10:00 WBC 17.7 H Neutrophils # 16.1 H Lymphocytes # 0.7 L D-Dimer 1.03 H BUN 31 H Glucose 125 H Calcium 10.6 H Magnesium 1.4 L - Diagnostic Findings Chest x-ray: image reviewed Assessment and Plan Assessment: Community-acquired pneumonia, chest CTA showing a lingular consolidation. Also, shows advanced emphysematous changes. Negative for filling defects consistent with pulmonary embolism. Acute COPD exacerbation, secondary to above Acute on chronic dyspnea Acute on chronic hypoxemic respiratory failure, currently on 3 L/min nasal cannula Acute leukocytosis History of COVID-19 pneumonia Moderate chronic obstructive pulmonary disease, with a baseline FEV1 63% of predicted Chronic hypoxemic respiratory failure Hypomagnesemia, supplemented History of hyperlipidemia Hypertension History of hypothyroidism Former tobacco dependence Plan: Continue supplemental oxygen to maintain oxygen saturation of 90% or greater Continue combination of DuoNebs, Symbicort inhaler, and IV Solu-Medrol Continue empiric antibiotics in the form of Rocephin and azithromycin Obtain sputum culture if possible Blood cultures pending Urine Legionella antigen pending We will continue to follow I have personally seen and examined the patient, performed the documentation and the assessment and plan as written. Number of minutes spent on the visit:20 This dictation was produced using [employer] dictation software please excuse grammatical errors Time with Patient: Greater than 30
[2024-03-19] MEDS: methylPREDNISolone SOD SUCCI 125 MG/2 ML VIAL IV SCH (06:16)
[2024-03-19] MEDS: LEVOTHYROXINE 88 MCG TAB PO SCH (06:16)
--- NOTE | 2024-03-19 08:19 | XR ---
EXAMINATION TYPE: XR chest 1V portable DATE OF EXAM: 03/19/2024 5:18 AM COMPARISON: 03/18/2024 CLINICAL INDICATION: Female, 78 years old with history of pneumonia, , FINDINGS: Heart mildly enlarged. Patchy bilateral mid and lower lung opacities, left greater than right persist , similar to slightly worsened. Relative upper lung lucencies. Trace left pleural effusion. IMPRESSION: Mild cardiomegaly and COPD. Patchy left greater than the right mid and lower lung opacities and trace left pleural effusion persist, similar to slightly worsened. [facility], , 03/19/2024 8:17 AM
[2024-03-19] MEDS: SYMBICORT 160-4.5 MCG INHALER INHALATION SCH (08:50)
--- NOTE | 2024-03-19 09:07 | P.HPIM ---
History of Present Illness H&P Date: 03/18/24 History of present illness; patient is 78-year-old lady with past medical history significant for OPD, tobacco addiction hypothyroidism, hyperlipidemia, hypertension who presented the ER because of chest pain. Patient states that she was all right yesterday when she started noticing left-sided chest discomfort, chest discomfort was constant, nonradiating, no aggravating or relieving factor associated with this chest pain. Patient was complaining of cough. There was no complaint of shortness of breath. Patient denies any nausea, vomiting abdominal pain. There is no complaint of fever or chills. Because of the chest pain, patient brought to the ER Initial lab work done in the ER showed WBC 17.7, hemoglobin 12.9, platelet count 211, D-dimer 1.03, sodium 140, potassium 3.8, BUN 31, creatinine 0.9, glucose 125, calcium 9.6, magnesium 1.4, troponin 0.012 EKG done in the ER showed heart rate of 91, no ST segment elevation or depression seen, no T-wave inversions seen. Chest x-ray done in the ER showed infiltrate in the left hilar region Patient admitted to internal medicine service REVIEW OF SYSTEMS: CONSTITUTIONAL: No fever, no malaise, no fatigue. HEENT: No recent visual problems or hearing problems. Denied any sore throat. CARDIOVASCULAR: As mentioned above PULMONARY: As mentioned above GASTROINTESTINAL: No diarrhea, no nausea, no vomiting, no abdominal pain. NEUROLOGICAL: No headaches, no weakness, no numbness. HEMATOLOGICAL: Denies any bleeding or petechiae. GENITOURINARY: Denies any burning micturition, frequency, or urgency. MUSCULOSKELETAL/RHEUMATOLOGICAL: Denies any joint pain, swelling, or any muscle pain. ENDOCRINE: Denies any polyuria or polydipsia. The rest of the 14-point review of systems is negative. PHYSICAL EXAMINATION: GENERAL: The patient is alert and oriented x3, not in any acute distress. Well developed, well nourished. HEENT: Pupils are round and equally reacting to light. EOMI. No scleral icterus. No conjunctival pallor. Normocephalic, atraumatic. No pharyngeal erythema. No thyromegaly. CARDIOVASCULAR: S1 and S2 present. No murmurs, rubs, or gallops. PULMONARY: Chest is clear to auscultation, no wheezing or crackles. ABDOMEN: Soft, nontender, nondistended, normoactive bowel sounds. No palpable organomegaly. MUSCULOSKELETAL: No joint swelling or deformity. EXTREMITIES: No cyanosis, clubbing, or pedal edema. NEUROLOGICAL: Gross neurological examination did not reveal any focal deficits. SKIN: No rashes. Assessment and plan Bacterial pneumonia History of COPD Hypomagnesemia Hypertension Hyperlipidemia Hypothyroidism Former tobacco addiction Monitor vital signs Monitor CBC Monitor CMP Continue telemetry monitoring Serial troponin D-dimer was elevated, ordered CTA chest with contrast to rule out PE Start IV Rocephin azithromycin Start breathing treatments Resume home meds Consult pulmonary Labs and medication were reviewed.. Continue same treatment. Continue with symptomatic treatment. Resume home medication. Monitor labs and vitals. DVT and GI prophylaxis. Further recommendations as per clinical course of the patient Dictation was produced using [employer] dictation software. please excuse any g rammatical, word or spelling errors. Past Medical History Past Medical History: COPD, GERD/Reflux, Hypertension, Osteoarthritis (OA), Thyroid Disorder Additional Past Medical History / Comment(s): DDD., HX COLON POLYPS. History of Any Multi-Drug Resistant Organisms: None Reported Past Surgical History: Orthopedic Surgery Additional Past Surgical History / Comment(s): colonoscopy with polyps, arthroscopy right knee (2009) , right foot surgery with screw big toe and olivia 2nd toe(2004)., cataracts Past Anesthesia/Blood Transfusion Reactions: No Reported Reaction, Postoperative Nausea & Vomiting (PONV) Additional Past Anesthesia/Blood Transfusion Reaction / Comment(s): nausea after back pain injection Past Psychological History: No Psychological Hx Reported Smoking Status: Former smoker Past Alcohol Use History: Rare Past Drug Use History: None Reported - Past Family History Mother Family Medical History: No Reported History Additional Family Medical History / Comment(s): mothers sister had cancer Medications and Allergies Home Medications Medication Instructions Recorded Confirmed Type Albuterol Inhaler [Ventolin Hfa 2 puff INHALATION RT-Q4H PRN 08/30/22 03/18/24 History Inhaler] Aspirin [Adult Low Dose Aspirin EC] 81 mg PO DAILY 08/30/22 03/18/24 History Cholecalciferol [Vitamin D3 (25 50 mcg PO DAILY 08/30/22 03/18/24 History Mcg = 1000 Iu)] Famotidine [Pepcid] 20 mg PO DAILY 08/30/22 03/18/24 History Felodipine [Plendil] 10 mg PO DAILY 08/30/22 03/18/24 History Fluticasone Propion/Salmeterol 1 puff INHALATION RT-BID 08/30/22 03/18/24 History [Fluticasone-Salmeterol 250-50] Isosorbide Mononitrate ER [Imdur] 30 mg PO DAILY 08/30/22 03/18/24 History Levothyroxine Sodium 88 mcg PO DAILY 08/30/22 03/18/24 History lisinopriL [Zestril] 40 mg PO DAILY 08/30/22 03/18/24 History Atorvastatin [Lipitor] 20 mg PO DAILY 10/14/23 03/18/24 History Nitroglycerin Sl Tabs [Nitrostat] 0.4 mg SL Q5M PRN 10/14/23 03/18/24 History Propylene Glycol/Peg 400/Pf 1 drop BOTH EYES BID 10/14/23 03/18/24 History [Systane 0.3-0.4% Oph Dropperette] traMADol HCL 50 mg PO BID PRN 03/18/24 03/18/24 History Allergies Allergy/AdvReac Type Severity Reaction Status Date / Time brimonidine [From [facility]] AdvReac Unknown crusty Verified 03/18/24 12:48 around eye lid timolol [From [facility]] AdvReac Unknown crusty Verified 03/18/24 12:48 around eye lid Physical Exam Vitals: Vital Signs Temp Pulse Resp BP Pulse Ox 03/18/24 11:58 68 16 101/66 96 03/18/24 10:58 80 16 97/64 93 L 03/18/24 10:29 20 03/18/24 10:27 85 22 117/77 93 L 03/18/24 09:57 20 03/18/24 09:55 85 20 140/60 93 L 03/18/24 09:43 98 F 93 20 112/62 91 L Intake and Output 03/17/24 03/18/24 03/18/24 22:59 06:59 14:59 Other: Weight 63.049 kg Results CBC & Chem 7: 03/18/24 10:00 03/18/24 10:00 Labs: Abnormal Lab Results - Last 24 Hours (Table) 03/18/24 03/18/24 03/18/24 Range/Units 10:00 10:00 10:00 WBC 17.7 H (3.8-10.6) k/uL Neutrophils # 16.1 H (1.3-7.7) k/uL Lymphocytes # 0.7 L (1.0-4.8) k/uL D-Dimer 1.03 H (<0.60) mg/L FEU BUN 31 H (7-17) mg/dL Glucose 125 H (74-99) mg/dL Calcium 10.6 H (8.4-10.2) mg/dL Magnesium 1.4 L (1.6-2.3) mg/dL
[2024-03-19] MEDS: ASPIRIN 81 MG PO SCH (09:23)
[2024-03-19] MEDS: ATORVASTATIN 20 MG TAB PO SCH (09:23)
[2024-03-19] MEDS: ISOSORBIDE MONONITRATE ER 30 MG TAB.ER.24H PO SCH (09:23)
[2024-03-19] MEDS: amLODIPine 10 MG TAB PO SCH (09:23)
[2024-03-19] MEDS: lisinopriL 20 MG TAB PO SCH (09:24)
[2024-03-19] MEDS: FAMOTIDINE 20 MG TAB PO SCH (09:24)
[2024-03-19] MEDS: CHOLECALCIFEROL 25 MCG (1000 IU) TABLET PO SCH (09:24)
[2024-03-19 10:52] LABS: Basophils # (A) 0.04 X 10*3/uL (0.00-0.10); Basophils % (A) 0.3 %; Eosinophils # (A) 0 X 10*3/uL (0.04-0.35); Eosinophils % (A) 0 %; HCT 36.5 % (37.2-46.3); HGB 11.8 g/dL (12.0-15.0); Lymphocytes # (A) 1.06 X 10*3/uL (0.90-5.00); Lymphocytes % (A) 8.2 %; MCH 29.1 pg (27.0-32.0); MCHC 32.3 g/dL (32.0-37.0); MCV 90.1 FL (80.0-97.0); Mean Platelet Volume 9.6 FL (9.5-12.2); Monocytes # (A) 0.76 X 10*3/uL (0.20-1.00); Monocytes % (A) 5.9 %; NRBC Per 100 WBC 0 X 10*3/uL (0.00-0.01); Neutrophils # (A) 10.95 X 10*3/uL (1.80-7.70); Neutrophils % (A) 85.2 %; Platelet Count 202 X 10*3/uL (140-440); RBC 4.05 X 10*6/uL (4.10-5.20); RDW 13.4 % (11.5-14.5); WBC 12.86 X 10*3/uL (4.50-10.00)
[2024-03-19 11:10] LABS: ALT 13 U/L (8-44); AST 17 U/L (13-35); Albumin 3.6 g/dL (3.8-4.9); Albumin/Globulin Ratio 1.57 Ratio (1.60-3.17); Alkaline Phosphatase 63 U/L (41-126); BUN/Creat Ratio 24.22 Ratio (12.00-20.00); Blood Urea Nitrogen 21.8 mg/dL (9.0-27.0); Calcium 9.6 mg/dL (8.7-10.3); Carbon Dioxide 23.1 mmol/L (21.6-31.8); Chloride 109 mmol/L (96-109); Globulin 2.3 g/dL (1.6-3.3); Glucose 99 mg/dL (70-110); Potassium 3.8 mmol/L (3.5-5.5); Sodium 144 mmol/L (135-145); Total Bilirubin 0.6 mg/dL (0.3-1.2); Total Protein 5.9 g/dL (6.2-8.2)
[2024-03-19] MEDS: AZITHROMYCIN 500 MG TAB PO SCH (11:43)
--- NOTE | 2024-03-19 13:38 | P.PN ---
Subjective Progress Note Date: 03/19/24 Principal diagnosis: Pneumonia Progress note: 03/19/2024 History of present illness: Per H&P, "History of present illness; patient is 78-year-old lady with past medical history significant for OPD, tobacco addiction hypothyroidism, hyperlipidemia, hypertension who presented the ER because of chest pain. Patient states that she was all right yesterday when she started noticing left-sided chest discomfort, chest discomfort was constant, nonradiating, no aggravating or relieving factor associated with this chest pain. Patient was complaining of cough. There was no complaint of shortness of breath. Patient denies any nausea, vomiting abdominal pain. There is no complaint of fever or chills. Because of the chest pain, patient brought to the ER Initial lab work done in the ER showed WBC 17.7, hemoglobin 12.9, platelet count 211, D-dimer 1.03, sodium 140, potassium 3.8, BUN 31, creatinine 0.9, glucose 125, calcium 9.6, magnesium 1.4, troponin 0.012 EKG done in the ER showed heart rate of 91, no ST segment elevation or depression seen, no T-wave inversions seen. Chest x-ray done in the ER showed infiltrate in the left hilar region Patient admitted to internal medicine service" Progress note for 03/19/2024: Patient was seen at bedside this morning. Reports slight improvement in the chest comfort and shortness of breath compared to yesterday. Denies other complaints at this time. Denies fever, chills, nausea, vomiting, belly pain, diarrhea, constipation, tingling or numbness sensation in upper/lower extremity. Review of Systems Constitutional: Denies chills, Denies fever Eyes: denies blurred vision, double vision or pain Ears, nose, mouth and throat: Denies headache, Denies sore throat Cardiovascular: Denies chest pain, reports shortness of breath Respiratory: Denies cough Gastrointestinal: Denies abdominal pain, Denies diarrhea, Denies nausea, Denies vomiting Musculoskeletal: Denies myalgias Integumentary: Denies pruritus, Denies rash Neurological: Denies numbness, Denies weakness Psychiatric: Denies anxiety, Denies depression Endocrine: Denies fatigue, Denies weight change The rest of the 14 point review of systems is negative Physical exam: GENERAL: This is a 78-year-old in no apparent distress at the time of examination. Pleasant and cooperative. HEENT: Head is atraumatic, normocephalic. Pupils are equal, round, and reactive to light. Sclerae anicteric. Conjunctivae are clear. Mucus membranes of the mouth are moist. Neck is supple. RESPIRATORY: Clear to auscultation. No wheezes, rales, or rhonchi. No use of accessory muscles. Patient maintaining oxygen saturation greater than 92%. No chest wall tenderness is noted on palpation or with deep breathing. CARDIOVASCULAR: Regular rate and rhythm. S1 and S2 noted. No systolic or diastolic murmur auscultated. No JVD noted. No S3 or S4 noted. GASTROINTESTINAL: No distention noted. Abdomen soft and round. Normal active bowel sounds auscultated x 4 quadrants. No pain or tenderness noted upon palpation. INTEGUMENTARY: No cyanosis. No jaundice. No rashes noted. No cellulitis noted. EXTREMITIES: 2+ peripheral pulses. No evidence of peripheral edema. No calf tenderness noted. NEUROLOGIC: Cranial nerves II-XII intact. PSYCHIATRIC: Awake, alert. Appropriate affect. Intact judgement and insight. Assessment and plan Bacterial pneumonia History of COPD Hypomagnesemia Hypertension Hyperlipidemia Hypothyroidism Former tobacco addiction Obtain morning CBC Obtain morning CMP Continue Rocephin 2 g IV every 24 hours Continue Zithromax 500 mg daily Continue DuoNeb 4 times daily and as needed Continue Solu-Medrol 60 mg IV every 6 hours Continue normal saline at 100 cc an hour Start DVT prophylaxis with Lovenox 40 mg subcu daily Objective - Vital Signs Vital signs: Vital Signs Temp 98.0 F 03/19/24 11:34 Pulse 81 03/19/24 13:25 Resp 18 03/19/24 13:25 BP 105/66 03/19/24 11:34 Pulse Ox 92 L 03/19/24 11:34 FiO2 Intake & Output 03/18/24 03/19/24 03/19/24 18:59 06:59 18:59 Weight 63.049 kg - Labs CBC & Chem 7: 03/19/24 06:19 03/19/24 06:19 Labs: Abnormal Lab Results - Last 24 Hours (Table) 03/19/24 03/19/24 03/19/24 Range/Units 06:19 06:19 06:19 WBC 12.86 H (4.50-10.00) X 10*3/uL RBC 4.05 L (4.10-5.20) X 10*6/uL Hgb 11.8 L (12.0-15.0) g/dL Hct 36.5 L (37.2-46.3) % Immature Gran # 0.05 H (0.00-0.04) X 10*3/uL Neutrophils # 10.95 H (1.80-7.70) X 10*3/uL Eosinophils # 0 L (0.04-0.35) X 10*3/uL BUN/Creatinine Ratio 24.22 H (12.00-20.00) Ratio Total Protein 5.9 L (6.2-8.2) g/dL Albumin 3.6 L (3.8-4.9) g/dL Albumin/Globulin Ratio 1.57 L (1.60-3.17) Ratio Procalcitonin 0.76 H (0.02-0.50) ng/mL
[2024-03-20] MEDS: ENOXAPARIN 40 MG/0.4 ML SYRINGE SQ SCH (08:47)
[2024-03-20 09:07] LABS: ALT 20 U/L (8-44); AST 25 U/L (13-35); Albumin 3.7 g/dL (3.8-4.9); Albumin/Globulin Ratio 1.54 Ratio (1.60-3.17); Alkaline Phosphatase 64 U/L (41-126); Basophils # (A) 0.01 X 10*3/uL (0.00-0.10); Basophils % (A) 0.1 %; Blood Urea Nitrogen 28.1 mg/dL (9.0-27.0); Calcium 9.4 mg/dL (8.7-10.3); Carbon Dioxide 19.2 mmol/L (21.6-31.8); Chloride 112 mmol/L (96-109); Eosinophils # (A) 0 X 10*3/uL (0.04-0.35); Eosinophils % (A) 0 %; Globulin 2.4 g/dL (1.6-3.3); Glucose 175 mg/dL (70-110); HCT 34.8 % (37.2-46.3); HGB 11.6 g/dL (12.0-15.0); Lymphocytes # (A) 0.42 X 10*3/uL (0.90-5.00); Lymphocytes % (A) 2.8 %; MCH 29.5 pg (27.0-32.0); MCHC 33.3 g/dL (32.0-37.0); MCV 88.5 FL (80.0-97.0); Mean Platelet Volume 9.8 FL (9.5-12.2); Monocytes # (A) 0.45 X 10*3/uL (0.20-1.00); NRBC Per 100 WBC 0 X 10*3/uL (0.00-0.01); Neutrophils # (A) 14.11 X 10*3/uL (1.80-7.70); Neutrophils % (A) 93.2 %; Platelet Count 220 X 10*3/uL (140-440); RBC 3.93 X 10*6/uL (4.10-5.20); RDW 13.2 % (11.5-14.5); Sodium 143 mmol/L (135-145); Total Bilirubin 0.3 mg/dL (0.3-1.2); Total Protein 6.1 g/dL (6.2-8.2); WBC 15.13 X 10*3/uL (4.50-10.00)
[2024-03-20] MEDS: guaiFENesin-DM 100-10MG/5ML 10 ML CUP PO PRN (14:06)
--- NOTE | 2024-03-20 15:14 | P.PN ---
Subjective Progress Note Date: 03/20/24 Patient is an 78-year-old white female with past medical history significant for COPD, former tobacco smoker, hypertension, hyperlipidemia, hypothyroidism, "leaky valve". She follows in the pulmonary office with Dr. Dwyer for management of her COPD. She has an FEV1 63% of predicted. She normally utilizes a combination of Advair and as needed Ventolin HFA inhaler. Presented the emergency department yesterday morning with a chief complaint of left-sided chest pain, rated 8/10 on a 10 point numerical scale, especially worse with coughing and deep breathing. Associated persistent nonproductive cough and progressively worsening shortness of breath since Saturday. No significant fevers, chills, sputum production, hemoptysis. She does normally use 3 L/min home O2. Denies any nausea, vomiting, diarrhea. Oral intake has been poor. Chest x-ray taken on arrival showing a left perihilar infiltrate. Follow-up chest CTA negative for filling defects, shows advanced emphysematous changes, as well as, a new lingular consolidation when compared to previous chest CTA taken November,. CBC remarkable for leukocytosis with left shift. CMP: Sodium 140, potassium 3.8, chloride 106, serum bicarb 24, BUN 31, creatinine 0.9, glucose 125. Magnesium 1.4. LFTs unremarkable. Troponins less than 0.012 x 3. NT proBNP 1360. EKG demonstrating sinus rhythm, rate 91 bpm, no acute ischemic abnormalities. She has been started on a combination of Rocephin and azithromycin in the ED. On my initial evaluation, remains in the emergency department. She is on 3 L/min nasal cannula, which she wears at home. Not in any respiratory distress. Continues to have a dry congested cough. Current vitals: Heart rate 80 bpm, blood pressure 119/73 mmHg, nontachypneic, SpO2 91% on 3 L/min nasal cannula. The patient is seen today March 20, 2024 in follow-up on the regular medical floor. She is currently sitting up in bed. Awake and alert in no acute distress. She is maintaining good O2 saturations in the 90s on 3 L/min per nasal cannula. She has normal saline at 50 mL/h. Her procalcitonin was positive at 0.76. She remains on ceftriaxone and azithromycin. She is being treated for a left lower lobe pneumonia. Chest x-ray did reveal mild cardiomegaly and COPD with a patchy left greater than right mid and lower lung opacities. Trace left pleural effusion persists. Still has quite a bit of cough and congestion. Ultras pending. White count 15.1. Hemoglobin 11.6. Platelets 220. Sodium 143. Potassium 4.0. Bicarb 19. BUN 28. Creatinine 1.0. Glucose 175. Shy on DuoNeb inhalations, Symbicort, Solu-Medrol. Lovenox for DVT prophylaxis. Objective - Vital Signs Vital signs: Vital Signs Temp 98.2 F 03/20/24 07:17 Pulse 112 H 03/20/24 12:07 Resp 18 03/20/24 07:17 BP 116/70 03/20/24 07:17 Pulse Ox 92 L 03/20/24 08:49 FiO2 Intake & Output 03/19/24 03/20/24 03/20/24 18:59 06:59 18:59 Intake Total 250 360 Balance 250 360 Weight 63.049 kg Intake: Oral 250 360 Other: Voiding Method Toilet Toilet # Voids 2 2 - Exam GENERAL EXAM: Alert, 78-year-old female, on 3 L nasal cannula, comfortable in no apparent distress. HEAD: Normocephalic and atraumatic EYES: Normal reaction of pupils, equal size. NOSE: Clear with pink turbinates. THROAT: No erythema or exudates. NECK: No masses, no JVD. CHEST: No chest wall deformity. LUNGS: Equal air entry with left basilar dullness and inspiratory crackles. CVS: S1 and S2 normal with grade 2 systolic murmur, regular rhythm. No other extra heart sounds ABDOMEN: No hepatosplenomegaly, active bowel sounds, no guarding or rigidity. SPINE: No scoliosis or deformity SKIN: No rashes CENTRAL NERVOUS SYSTEM: No focal deficits, tone is normal in all 4 extremities. EXTREMITIES: There is no peripheral edema, clubbing, or cyanosis. Peripheral pulses are intact. - Labs CBC & Chem 7: 03/20/24 05:31 03/20/24 05:31 Labs: Abnormal Lab Results - Last 24 Hours (Table) 03/20/24 03/20/24 Range/Units 05:31 05:31 WBC 15.13 H (4.50-10.00) X 10*3/uL RBC 3.93 L (4.10-5.20) X 10*6/uL Hgb 11.6 L (12.0-15.0) g/dL Hct 34.8 L (37.2-46.3) % Immature Gran # 0.14 H (0.00-0.04) X 10*3/uL Neutrophils # 14.11 H (1.80-7.70) X 10*3/uL Lymphocytes # 0.42 L (0.90-5.00) X 10*3/uL Eosinophils # 0 L (0.04-0.35) X 10*3/uL Chloride 112 H (96-109) mmol/L Carbon Dioxide 19.2 L (21.6-31.8) mmol/L BUN 28.1 H (9.0-27.0) mg/dL Est GFR (CKD-EPI) 57 L (>=60) BUN/Creatinine Ratio 28.10 H (12.00-20.00) Ratio Glucose 175 H (70-110) mg/dL Total Protein 6.1 L (6.2-8.2) g/dL Albumin 3.7 L (3.8-4.9) g/dL Albumin/Globulin Ratio 1.54 L (1.60-3.17) Ratio Microbiology - Last 24 Hours (Table) 03/18/24 12:12 Blood Culture - Preliminary Blood Assessment and Plan Assessment: Community-acquired pneumonia, chest CTA showing a lingular consolidation. Also, shows advanced emphysematous changes. Negative for filling defects consistent with pulmonary embolism. Acute COPD exacerbation, secondary to above Acute on chronic dyspnea Acute on chronic hypoxemic respiratory failure, currently on 3 L/min nasal cannula Acute leukocytosis History of COVID-19 pneumonia Moderate chronic obstructive pulmonary disease, with a baseline FEV1 63% of p redicted Chronic hypoxemic respiratory failure Hypomagnesemia, supplemented History of hyperlipidemia Hypertension History of hypothyroidism Former tobacco dependence Plan: The patient was seen and evaluated Labs and medications reviewed Procalcitonin positive at 0.76 Continue ceftriaxone and azithromycin Continue DuoNeb inhalations, Symbicort, Solu-Medrol Titrate down the FiO2 as tolerated Increase her activity as tolerated We will continue to follow I have personally seen and examined the patient, performed the documentation and the assessment and plan as written. Number of minutes spent on the visit: 10 Dictation was produced using Dragon dictation software. Please excuse any grammatical, word or spelling errors. This patient was seen in coordination with the pulmonary/critical care physician, Dr. Peña. He did spend greater than 50% of the time evaluating, examining and developing the plan of care. He agrees to the above HPI, physical exam, assessment and plan of care as dictated by the nurse practitioner.
--- NOTE | 2024-03-20 15:42 | P.PN ---
Subjective Progress Note Date: 03/20/24 Interval History: History of present illness: Per H&P, "History of present illness; patient is 78-year-old lady with past medical history significant for OPD, tobacco addiction hypothyroidism, hyperlipidemia, hypertension who presented the ER because of chest pain. Patient states that she was all right yesterday when she started noticing left-sided chest discomfort, chest discomfort was constant, nonradiating, no aggravating or relieving factor associated with this chest pain. Patient was complaining of cough. There was no complaint of shortness of breath. Patient denies any nausea, vomiting abdominal pain. There is no complaint of fever or chills. Because of the chest pain, patient brought to the ER Initial lab work done in the ER showed WBC 17.7, hemoglobin 12.9, platelet count 211, D-dimer 1.03, sodium 140, potassium 3.8, BUN 31, creatinine 0.9, glucose 125, calcium 9.6, magnesium 1.4, troponin 0.012 EKG done in the ER showed heart rate of 91, no ST segment elevation or depression seen, no T-wave inversions seen. Chest x-ray done in the ER showed infiltrate in the left hilar region Patient admitted to internal medicine service" 03/19/2024: Patient was seen at bedside this morning. Reports slight improvement in the chest comfort and shortness of breath compared to yesterday. Denies other complaints at this time. Denies fever, chills, nausea, vomiting, belly pain, diarrhea, constipation, tingling or numbness sensation in upper/lower extremity. 03/20/2024patient was seen and examined today. Patient currently on 3 L of oxygen. Patient reported that she felt more short of breath and congested earlier today. Patient currently on Rocephin and azithromyci pulmonary followi ng. n, on inhaler steroid bronchodilator protocol and Solu-Medrol. Afebrile, heart rate 118, respiratory rate 18, blood pressure 116/70, saturating 92% on 3 L. WBCs 15.1, hemoglobin 11.6, platelets normal. BUN 28, creatinine 1.0. Procalcitonin 0.76. Assessment and plan: Community-acquired pneumonia: Acute COPD exacerbation Acute on chronic hypoxic respiratory failure: 3 L oxygen at baseline History of COVID-19 pneumonia Leukocytosis Hypertension Hyperlipidemia Hypothyroidism Former smoker Plan: Continue Rocephin and azithromycin Elevated procalcitonin 0.76 Continue DuoNeb/Symbicort, Solu-Medrol Pulmonary toilet Encourage ambulation Pulmonary consulted DVT prophylaxis: Subcutaneous Lovenox Monitor vital signs and labs Labs and medication were reviewed. Continue same treatment. Further recommendations as per clinical course of the patient PHYSICAL EXAMINATION: GENERAL: The patient is A&O x3, NAD HEENT: EOMI, Sclerae anicteric, Moist Mucous membranes Neck: Supple, Non tender, No JVD PULMONARY: Decreased breath souds B/L, No wheezing, No crackles. CARDIOVASCULAR: S1, S2 present. No murmurs, rubs, or gallops. ABDOMEN: Soft, nontender, nondistended, normoactive bowel sounds. No guarding or rebound tenderness. MUSCULOSKELETAL: No edema, No cyanosis. No clubbing. Normal ROM. Intact peripheral pulses. NEUROLOGICAL: CN 2-12 grossly intact. No FND Skin: No Rash REVIEW OF SYSTEMS: CONSTITUTIONAL: No fever or chills. CARDIOVASCULAR: No chest pain, palpitations or syncope. PULMONARY: Complains of shortness of breath, productive cough. GASTROINTESTINAL: No nausea, vomiting, diarrhea, abdominal pain. : No Dysuria, urgency, frequency. Extremities: No edema. NEUROLOGICAL: No headaches, no weakness, or numbness Dictation was produced using [employer] dictation software. please excuse any grammatical, word or spelling errors. Objective - Vital Signs Vital signs: Vital Signs Temp 98.2 F 03/20/24 07:17 Pulse 93 03/20/24 15:18 Resp 18 03/20/24 07:17 BP 109/73 03/20/24 15:18 Pulse Ox 92 L 03/20/24 15:18 FiO2 Intake & Output 03/19/24 03/20/24 03/20/24 18:59 06:59 18:59 Intake Total 250 360 Balance 250 360 Weight 63.049 kg Intake: Oral 250 360 Other: Voiding Method Toilet Toilet # Voids 2 2 - Labs CBC & Chem 7: 03/20/24 05:31 03/20/24 05:31 Labs: Abnormal Lab Results - Last 24 Hours (Table) 03/20/24 03/20/24 Range/Units 05:31 05:31 WBC 15.13 H (4.50-10.00) X 10*3/uL RBC 3.93 L (4.10-5.20) X 10*6/uL Hgb 11.6 L (12.0-15.0) g/dL Hct 34.8 L (37.2-46.3) % Immature Gran # 0.14 H (0.00-0.04) X 10*3/uL Neutrophils # 14.11 H (1.80-7.70) X 10*3/uL Lymphocytes # 0.42 L (0.90-5.00) X 10*3/uL Eosinophils # 0 L (0.04-0.35) X 10*3/uL Chloride 112 H (96-109) mmol/L Carbon Dioxide 19.2 L (21.6-31.8) mmol/L BUN 28.1 H (9.0-27.0) mg/dL Est GFR (CKD-EPI) 57 L (>=60) BUN/Creatinine Ratio 28.10 H (12.00-20.00) Ratio Glucose 175 H (70-110) mg/dL Total Protein 6.1 L (6.2-8.2) g/dL Albumin 3.7 L (3.8-4.9) g/dL Albumin/Globulin Ratio 1.54 L (1.60-3.17) Ratio Microbiology - Last 24 Hours (Table) 03/18/24 12:12 Blood Culture - Preliminary Blood
[2024-03-21] MEDS: MAGNESIUM SULFATE-D5W PMX 1 GM in DEXTROSE/WATER 1 100ML.BAG IVPB SCH (08:57)
--- NOTE | 2024-03-21 13:43 | P.PN ---
Subjective Progress Note Date: 03/21/24 Patient is an 78-year-old white female with past medical history significant for COPD, former tobacco smoker, hypertension, hyperlipidemia, hypothyroidism, "leaky valve". She follows in the pulmonary office with Dr. Dwyer for management of her COPD. She has an FEV1 63% of predicted. She normally utilizes a combination of Advair and as needed Ventolin HFA inhaler. Presented the emergency department yesterday morning with a chief complaint of left-sided chest pain, rated 8/10 on a 10 point numerical scale, especially worse with coughing and deep breathing. Associated persistent nonproductive cough and progressively worsening shortness of breath since Saturday. No significant fevers, chills, sputum production, hemoptysis. She does normally use 3 L/min home O2. Denies any nausea, vomiting, diarrhea. Oral intake has been poor. Chest x-ray taken on arrival showing a left perihilar infiltrate. Follow-up chest CTA negative for filling defects, shows advanced emphysematous changes, as well as, a new lingular consolidation when compared to previous chest CTA taken November,. CBC remarkable for leukocytosis with left shift. CMP: Sodium 140, potassium 3.8, chloride 106, serum bicarb 24, BUN 31, creatinine 0.9, glucose 125. Magnesium 1.4. LFTs unremarkable. Troponins less than 0.012 x 3. NT proBNP 1360. EKG demonstrating sinus rhythm, rate 91 bpm, no acute ischemic abnormalities. She has been started on a combination of Rocephin and azithromycin in the ED. On my initial evaluation, remains in the emergency department. She is on 3 L/min nasal cannula, which she wears at home. Not in any respiratory distress. Continues to have a dry congested cough. Current vitals: Heart rate 80 bpm, blood pressure 119/73 mmHg, nontachypneic, SpO2 91% on 3 L/min nasal cannula. The patient is seen today March 20, 2024 in follow-up on the regular medical floor. She is currently sitting up in bed. Awake and alert in no acute distress. She is maintaining good O2 saturations in the 90s on 3 L/min per nasal cannula. She has normal saline at 50 mL/h. Her procalcitonin was positive at 0.76. She remains on ceftriaxone and azithromycin. She is being treated for a left lower lobe pneumonia. Chest x-ray did reveal mild cardiomegaly and COPD with a patchy left greater than right mid and lower lung opacities. Trace left pleural effusion persists. Still has quite a bit of cough and congestion. Ultras pending. White count 15.1. Hemoglobin 11.6. Platelets 220. Sodium 143. Potassium 4.0. Bicarb 19. BUN 28. Creatinine 1.0. Glucose 175. Shy on DuoNeb inhalations, Symbicort, Solu-Medrol. Lovenox for DVT prophylaxis. The patient is seen today March 21, 2024 in follow-up on the regular medical floor. She is currently resting in bed. Family at the bedside. She is awake and alert in no acute distress. Maintaining O2 saturation in the 90s on 3 L/min per nasal cannula. She is feeling a bit better today compared to yesterday. She remains on DuoNeb inhalations, Symbicort, Solu-Medrol. Lovenox for DVT prophylaxis. She is continued on Rocephin. Procalcitonin was 0.76. No new labs today. Objective - Vital Signs Vital signs: Vital Signs Temp 97.6 F 03/21/24 07:06 Pulse 86 03/21/24 12:37 Resp 18 03/21/24 07:06 BP 116/80 03/21/24 07:06 Pulse Ox 98 03/21/24 08:29 FiO2 Intake & Output 03/20/24 03/21/24 03/21/24 18:59 06:59 18:59 Intake Total 1400 480 Balance 1400 480 Intake: IV 1200 Sodium Chloride 0.9% 1, 1200 000 ml @ 100 mls/hr IV . Q10H [facility] Rx#:[id number] Oral 200 480 Other: Voiding Method Toilet # Voids 3 - Exam GENERAL EXAM: Alert, 78-year-old female, sitting up in bed, on 3 L nasal cannula, in no apparent distress. HEAD: Normocephalic and atraumatic EYES: Normal reaction of pupils, equal size. NOSE: Clear with pink turbinates. THROAT: No erythema or exudates. NECK: No masses, no JVD. CHEST: No chest wall deformity. LUNGS: Equal air entry with left basilar dullness and inspiratory crackles. CVS: S1 and S2 normal with grade 2 systolic murmur, regular rhythm. No other extra heart sounds ABDOMEN: No hepatosplenomegaly, active bowel sounds, no guarding or rigidity. SPINE: No scoliosis or deformity SKIN: No rashes CENTRAL NERVOUS SYSTEM: No focal deficits, tone is normal in all 4 extremities. EXTREMITIES: There is no peripheral edema, clubbing, or cyanosis. Peripheral pulses are intact. - Labs CBC & Chem 7: 03/20/24 05:31 03/20/24 05:31 Labs: Microbiology - Last 24 Hours (Table) 03/18/24 12:12 Blood Culture - Preliminary Blood Assessment and Plan Assessment: Community-acquired pneumonia, chest CTA showing a lingular consolidation. Also, shows advanced emphysematous changes. Negative for filling defects consistent with pulmonary embolism. Procalcitonin 0.76. Continued on ceftriaxone and completed azithromycin Acute COPD exacerbation, secondary to above Acute on chronic dyspnea Acute on chronic hypoxemic respiratory failure, currently on 3 L/min nasal cannula Acute leukocytosis History of COVID-19 pneumonia Moderate chronic obstructive pulmonary disease, with a baseline FEV1 63% of predicted Chronic hypoxemic respiratory failure Hypomagnesemia, supplemented History of hyperlipidemia Hypertension History of hypothyroidism Former tobacco dependence Plan: The patient was seen and evaluated Labs and medications reviewed Continue the current treatment plan Titrate down the FiO2 as tolerated Increase her activity as tolerated We will continue to follow I have personally seen and examined the patient, performed the documentation and the assessment and plan as written. Number of minutes spent on the visit: 10 Dictation was produced using [employer] dictation software. Please excuse any grammatical, word or spelling errors. This patient was seen in coordination with the pulmonary/critical care physician, Dr. Peña. He did spend greater than 50% of the time evaluating, examining and developing the plan of care. He agrees to the above HPI, physical exam, assessment and plan of care as dictated by the nurse practitioner.
--- NOTE | 2024-03-21 14:16 | P.PN ---
Subjective Progress Note Date: 03/21/24 Principal diagnosis: Pneumonia Interval History: History of present illness: Per H&P, "History of present illness; patient is 78-year-old lady with past medical history significant for OPD, tobacco addiction hypothyroidism, hyperlipidemia, hypertension who presented the ER because of chest pain. Patient states that she was all right yesterday when she started noticing left-sided chest discomfort, chest discomfort was constant, nonradiating, no aggravating or relieving factor associated with this chest pain. Patient was complaining of cough. There was no complaint of shortness of breath. Patient denies any nausea, vomiting abdominal pain. There is no complaint of fever or chills. Because of the chest pain, patient brought to the ER Initial lab work done in the ER showed WBC 17.7, hemoglobin 12.9, platelet count 211, D-dimer 1.03, sodium 140, potassium 3.8, BUN 31, creatinine 0.9, glucose 125, calcium 9.6, magnesium 1.4, troponin 0.012 EKG done in the ER showed heart rate of 91, no ST segment elevation or depression seen, no T-wave inversions seen. Chest x-ray done in the ER showed infiltrate in the left hilar region Patient admitted to internal medicine service" 03/19/2024: Patient was seen at bedside this morning. Reports slight improvement in the chest comfort and shortness of breath compared to yesterday. Denies other complaints at this time. Denies fever, chills, nausea, vomiting, belly pain, diarrhea, constipation, tingling or numbness sensation in upper/lower extremity. 03/20/2024patient was seen and examined today. Patient currently on 3 L of oxygen. Patient reported that she felt more short of breath and congested earlier today. Patient currently on Rocephin and azithromyci pulmonary following. n, on inhaler steroid bronchodilator protocol and Solu-Medrol. Afebrile, heart rate 118, respiratory rate 18, blood pressure 116/70, saturating 92% on 3 L. WBCs 15.1, hemoglobin 11.6, platelets normal. BUN 28, creatinine 1.0. Procalcitonin 0.76. 03/21/2024: Patient was seen and examined today. Temperature 97.6, pulse rate 96, respiratory rate 18, blood pressure 116/80, O2 sat 98% on nasal cannula at 3 L/min. Labs on 03/20/2024 showed WBC 15.13, hemoglobin 11.6, hematocrit 34.8, platelets 220, sodium 143, potassium 4.0, chloride 112, carbon dioxide 19.2, BUN 28.1, creatinine 1.0, glucose 175. Patient does report wearing oxygen at home in the setting of 3 L/min. Reports feeling about the same compared to yesterday. Still reports shortness of breath. Denies fever, chills, chest pain, nausea, vomiting, belly pain, lower extremity swelling, constipation/diarrhea. Review of Systems Constitutional: Denies chills, Denies fever Eyes: denies blurred vision, double vision or pain Ears, nose, mouth and throat: Denies headache, Denies sore throat Cardiovascular: Denies chest pain, reports shortness of breath Respiratory: Denies cough Gastrointestinal: Denies abdominal pain, Denies diarrhea, Denies nausea, Denies vomiting Musculoskeletal: Denies myalgias Integumentary: Denies pruritus, Denies rash Neurological: Denies numbness, Denies weakness Psychiatric: Denies anxiety, Denies depression Endocrine: Denies fatigue, Denies weight change GENERAL: This is a 78-year-old in no apparent distress at the time of examination. Pleasant and cooperative. HEENT: Head is atraumatic, normocephalic. Pupils are equal, round, and reactive to light. Sclerae anicteric. Conjunctivae are clear. Mucus membranes of the mouth are moist. Neck is supple. RESPIRATORY: Clear to auscultation. No wheezes, rales, or rhonchi. No use of accessory muscles. Patient maintaining oxygen saturation greater than 92%. No chest wall tenderness is noted on palpation or with deep breathing. CARDIOVASCULAR: Regular rate and rhythm. S1 and S2 noted. No systolic or diastolic murmur auscultated. No JVD noted. No S3 or S4 noted. GASTROINTESTINAL: No distention noted. Abdomen soft and round. Normal active bowel sounds auscultated x 4 quadrants. No pain or tenderness noted upon palpation. INTEGUMENTARY: No cyanosis. No jaundice. No rashes noted. No cellulitis noted. EXTREMITIES: 2+ peripheral pulses. No evidence of peripheral edema. No calf tenderness noted. NEUROLOGIC: Cranial nerves II-XII intact. PSYCHIATRIC: Awake, alert. Appropriate affect. Intact judgement and insight. Assessment and plan: Community-acquired pneumonia Acute COPD exacerbation Acute on chronic hypoxic respiratory failure: 3 L oxygen at baseline History of COVID-19 pneumonia Leukocytosis Hypertension Hyperlipidemia Hypothyroidism Former smoker Plan: Initiate magnesium sulfate 3 g IV Monitor morning CBC and CMP Consult PT/OT Continue Rocephin 2 g IV every 24 hours Continue DuoNebs 3 mL 4 times daily and Solu-Medrol 60 mg IV every 6 hours Encourage ambulation Pulmonary toilet Obtain magnesium level DVT prophylaxis: Subcutaneous Lovenox. Objective - Vital Signs Vital signs: Vital Signs Temp 97.6 F 03/21/24 07:06 Pulse 96 03/21/24 08:38 Resp 18 03/21/24 07:06 BP 116/80 03/21/24 07:06 Pulse Ox 98 03/21/24 08:29 FiO2 Intake & Output 03/20/24 03/21/24 03/21/24 18:59 06:59 18:59 Intake Total 1400 480 Balance 1400 480 Intake: IV 1200 Sodium Chloride 0.9% 1, 1200 000 ml @ 100 mls/hr IV . Q10H [facility] Rx#:[id number] Oral 200 480 Other: Voiding Method Toilet # Voids 3 - Labs CBC & Chem 7: 03/20/24 05:31 03/20/24 05:31 Labs: Abnormal Lab Results - Last 24 Hours (Table) 03/20/24 03/20/24 Range/Units 05:31 05:31 WBC 15.13 H (4.50-10.00) X 10*3/uL RBC 3.93 L (4.10-5.20) X 10*6/uL Hgb 11.6 L (12.0-15.0) g/dL Hct 34.8 L (37.2-46.3) % Immature Gran # 0.14 H (0.00-0.04) X 10*3/uL Neutrophils # 14.11 H (1.80-7.70) X 10*3/uL Lymphocytes # 0.42 L (0.90-5.00) X 10*3/uL Eosinophils # 0 L (0.04-0.35) X 10*3/uL Chloride 112 H (96-109) mmol/L Carbon Dioxide 19.2 L (21.6-31.8) mmol/L BUN 28.1 H (9.0-27.0) mg/dL Est GFR (CKD-EPI) 57 L (>=60) BUN/Creatinine Ratio 28.10 H (12.00-20.00) Ratio Glucose 175 H (70-110) mg/dL Total Protein 6.1 L (6.2-8.2) g/dL Albumin 3.7 L (3.8-4.9) g/dL Albumin/Globulin Ratio 1.54 L (1.60-3.17) Ratio Microbiology - Last 24 Hours (Table) 03/18/24 12:12 Blood Culture - Preliminary Blood
[2024-03-21] MEDS ORDERED: HEPARIN SODIUM 1,000 UN/ML (10ML VL) IV PRN (19:52)
[2024-03-21 20:50] LABS: Basophils % (A) 0 %; Eosinophils % (A) 0 %; HCT 37.1 % (34.0-46.0); HGB 12.3 gm/dL (11.4-16.0); Lymphocytes # (A) 0.5 k/uL (1.0-4.8); Lymphocytes % (A) 4 %; MCH 30.4 pg (25.0-35.0); MCV 91.9 fL (80.0-100.0); Mean Platelet Volume 7.3; Monocytes # (A) 0.3 k/uL (0-1.0); Monocytes % (A) 3 %; Neutrophils # (A) 11.1 k/uL (1.3-7.7); Neutrophils % (A) 91 %; Platelet Count 303 k/uL (150-450); RBC 4.04 m/uL (3.80-5.40); RDW 13.1 % (11.5-15.5); WBC 12.2 k/uL (3.8-10.6)
[2024-03-21 21:04] LABS: Partial Thromboplastin Time 23.4 sec (22.0-30.0); Prothrombin Time 10.8 sec (10.0-12.5)
[2024-03-21] MEDS: DILTIAZEM 125 MG in SODIUM CHLORIDE 0.9% 100 ML IV SCH (21:15)
[2024-03-21] MEDS: HEPARIN SOD,PORK IN 0.45% NACL 25,000 UNIT in 0.45% NACL 1 250ML.BAG IV SCH (21:28)
[2024-03-21] MEDS: HEPARIN SODIUM 1,000 UN/ML (10ML VL) IV ONE (21:34)
[2024-03-21] MEDS: DILTIAZEM DRIP BOLUS FROM BAG 1 MG SOLN IV ONE (21:34)
[2024-03-21] MEDS: METOPROLOL TARTRATE 25 MG TAB PO SCH (21:43)
[2024-03-22 04:41] LABS: Partial Thromboplastin Time 51.8 sec (22.0-30.0); Prothrombin Time 11.3 sec (10.0-12.5)
[2024-03-22 10:47] LABS: Basophils # (A) 0.06 X 10*3/uL (0.00-0.10); Basophils % (A) 0.6 %; Eosinophils # (A) 0.02 X 10*3/uL (0.04-0.35); Eosinophils % (A) 0.2 %; HCT 35.3 % (37.2-46.3); HGB 11.7 g/dL (12.0-15.0); Lymphocytes # (A) 0.77 X 10*3/uL (0.90-5.00); Lymphocytes % (A) 7.3 %; MCH 29.5 pg (27.0-32.0); MCHC 33.1 g/dL (32.0-37.0); MCV 89.1 FL (80.0-97.0); Mean Platelet Volume 10.3 FL (9.5-12.2); Monocytes # (A) 0.42 X 10*3/uL (0.20-1.00); NRBC Per 100 WBC 0 X 10*3/uL (0.00-0.01); Neutrophils # (A) 8.83 X 10*3/uL (1.80-7.70); Neutrophils % (A) 84.3 %; Platelet Count 295 X 10*3/uL (140-440); RBC 3.96 X 10*6/uL (4.10-5.20); RDW 13.5 % (11.5-14.5); WBC 10.48 X 10*3/uL (4.50-10.00)
[2024-03-22 10:52] LABS: T4, Free (Free Thyroxine) 1.67 ng/dL (0.78-2.19)
[2024-03-22 11:26] LABS: ALT 120 U/L (8-44); AST 102 U/L (13-35); Albumin 3.7 g/dL (3.8-4.9); Albumin/Globulin Ratio 1.61 Ratio (1.60-3.17); Alkaline Phosphatase 62 U/L (41-126); Blood Urea Nitrogen 33.6 mg/dL (9.0-27.0); Carbon Dioxide 19.6 mmol/L (21.6-31.8); Chloride 114 mmol/L (96-109); Globulin 2.3 g/dL (1.6-3.3); Glucose 133 mg/dL (70-110); Magnesium 2.8 mg/dL (1.5-2.4); Potassium 4.5 mmol/L (3.5-5.5); Sodium 146 mmol/L (135-145); Total Bilirubin 0.3 mg/dL (0.3-1.2)
[2024-03-22 11:31] LABS: Glucose,Whole Blood 128 mg/dL (70-110)
[2024-03-22] MEDS: FUROSEMIDE 20 MG TAB PO SCH (12:04)
--- NOTE | 2024-03-22 12:30 | P.CRDCN ---
History of Present Illness History of present illness: HISTORY OF PRESENT ILLNESS: This is a 78-year-old female with a past medical history significant for hypertension, hyperlipidemia, COPD, hypothyroidism, and former nicotine dependence. Patient follows in the office with Dr. Ma. We have been asked to see the patient in consultation for new onset atrial fibrillation. Patient examined at the bedside. Patient presented to the hospital to chief complaint of shortness of breath. She states this started about 4 5 days ago. She also reports having a frequent cough at home. The patient was found to have pneumonia and was started on IV antibiotics. Additionally she is being treated for acute COPD exacerbation. Patient was in sinus mechanism when she presented to the hospital. However yesterday patient went into A-fib with RVR. The patient denies any known history of atrial fibrillation. She denied having any palpitations at that time. Patient was started on IV heparin and IV Cardizem. She is remains in atrial fibrillation this morning with heart rate around 100. She denies chest pain or pressure. DIAGNOSTICS: - EKG reveals sinus mechanism with no signs of acute ischemia. Repeat EKG reveals atrial fibrillation with RVR - Chest xray infiltrate in the left perihilar region correlate for pneumonia. - Laboratory data: WBC 10.48. Hemoglobin 11.7. Platelet count 295. Sodium 146. Potassium 4.5. BUN 33. Creatinine 1.0. - Current home cardiac medications include aspirin 81 mg daily, Lipitor 20 mg daily, Imdur 30 mg daily, lisinopril 40 mg daily - Most recent echocardiogram obtained in January 2024 revealed ejection fraction 55 to 60%, mild LVH, mild aortic stenosis with mean gradient 13 mmHg, mild aortic regurgitation, mild TR, and mild pulm hypertension - Cardiac catheterization history: August 2021 revealing fixed inferior basal defect REVIEW OF SYSTEMS: At the time of my exam: CONSTITUTIONAL: Denies fever or chills. HEENT: Denies blurred vision, vision changes, or eye pain. Denies hemoptysis CARDIOVASCULAR: Denies chest pain. Denies orthopnea. Denies PND. Denies palpitations RESPIRATORY: Denies shortness of breath. GASTROINTESTINAL: Denies abdominal pain. Denies nausea or vomiting. HEMATOLOGIC: Denies bleeding disorders. GENITOURINARY: Denies any blood in urine. SKIN: Denies pruitis. Denies rash. PHYSICAL EXAM: VITAL SIGNS: Reviewed. GENERAL: Well-developed in no acute distress. HEENT: Head is normocephalic. Pupils are equal, round. Sclerae anicteric. Mucous membranes of the mouth are moist. Neck supple. No JVD or thyromegaly LUNGS: Respirations even and unlabored. Lungs with decreased air exchange throughout HEART: Irregular rate and rhythm. S1 and S2 heard. Systolic murmur noted ABDOMEN: Soft. Nondistended. Nontender. EXTREMITIES: Normal range of motion. No clubbing or cyanosis. Peripheral pulses intact. Trace bilateral lower extremity edema NEUROLOGIC: Awake and alert. Oriented x 3. ASSESSMENT: Shortness of breath Pneumonia Acute COPD exacerbation New onset atrial fibrillation with RVR, currently rate controlled Chronic hypoxic respiratory failure on home oxygen History of hypertension History of hyperlipidemia Hypothyroidism Former nicotine dependence PLAN: No need to repeat echocardiogram as this was performed in January 2024 Patient requesting to be on Xarelto as her also takes this. Will begin Xarelto 20 mg this evening. IV heparin may be discontinued once Xarelto is given this evening. Continue metoprolol 25 mg twice a day Discontinue IV Cardizem Add small dose of diuretics 20 mg daily for lower extremity swelling Check TSH Continue telemetry monitoring Continue additional home cardiac medications Further recommendations pending patient course Nurse practitioner note has been reviewed by physician. Signing provider agrees with the documented findings, assessment, and plan of care documented by [facility] as a scribe. Past Medical History Past Medical History: COPD, GERD/Reflux, Hypertension, Osteoarthritis (OA), Thyroid Disorder Additional Past Medical History / Comment(s): DDD., HX COLON POLYPS. History of Any Multi-Drug Resistant Organisms: None Reported Past Surgical History: Orthopedic Surgery Additional Past Surgical History / Comment(s): colonoscopy with polyps, arthroscopy right knee (2009) , right foot surgery with screw big toe and olivia 2nd toe(2004)., cataracts, Past Anesthesia/Blood Transfusion Reactions: No Reported Reaction, Postoperative Nausea & Vomiting (PONV) Additional Past Anesthesia/Blood Transfusion Reaction / Comment(s): nausea after back pain injection Past Psychological History: No Psychological Hx Reported Smoking Status: Former smoker Past Alcohol Use History: Rare Additional Past Alcohol Use History / Comment(s): quit smoking 2009 , hx of 1 ppd or less Past Drug Use History: None Reported - Past Family History Mother Family Medical History: No Reported History Additional Family Medical History / Comment(s): mothers sister had cancer Medications and Allergies Home Medications Medication Instructions Recorded Confirmed Type Albuterol Inhaler [Ventolin Hfa 2 puff INHALATION RT-Q4H PRN 08/30/22 03/18/24 History Inhaler] Aspirin [Adult Low Dose Aspirin EC] 81 mg PO DAILY 08/30/22 03/18/24 History Cholecalciferol [Vitamin D3 (25 50 mcg PO DAILY 08/30/22 03/18/24 History Mcg = 1000 Iu)] Famotidine [Pepcid] 20 mg PO DAILY 08/30/22 03/18/24 History Felodipine [Plendil] 10 mg PO DAILY 08/30/22 03/18/24 History Fluticasone Propion/Salmeterol 1 puff INHALATION RT-BID 08/30/22 03/18/24 History [Fluticasone-Salmeterol 250-50] Isosorbide Mononitrate ER [Imdur] 30 mg PO DAILY 08/30/22 03/18/24 History Levothyroxine Sodium 88 mcg PO DAILY 08/30/22 03/18/24 History lisinopriL [Zestril] 40 mg PO DAILY 08/30/22 03/18/24 History Atorvastatin [Lipitor] 20 mg PO DAILY 10/14/23 03/18/24 History Nitroglycerin Sl Tabs [Nitrostat] 0.4 mg SL Q5M PRN 10/14/23 03/18/24 History Propylene Glycol/Peg 400/Pf 1 drop BOTH EYES BID 10/14/23 03/18/24 History [Systane 0.3-0.4% Ophth Dropperette] traMADol HCL 50 mg PO BID PRN 03/18/24 03/18/24 History Allergies Allergy/AdvReac Type Severity Reaction Status Date / Time brimonidine [From Combigan] AdvReac Unknown crusty Verified 03/18/24 12:48 around eye lid timolol [From Combigan] AdvReac Unknown crusty Verified 03/18/24 12:48 around eye lid Physical Exam Vitals: Vital Signs Temp Pulse Pulse Pulse Resp BP Pulse Ox 03/22/24 09:13 94 03/22/24 09:03 102 H 89 L 03/22/24 08:00 97.7 F 88 20 125/87 92 L 03/22/24 03:37 97.7 F 53 L 20 122/79 91 L 03/22/24 01:21 66 20 03/21/24 23:14 98.3 F 66 20 110/74 92 L 03/21/24 21:48 97.4 F L 126 H 20 137/91 92 L 03/21/24 19:29 98.3 F 120 H 20 128/81 91 L 03/21/24 16:33 88 03/21/24 16:24 88 03/21/24 15:58 114 H 93 L 03/21/24 14:54 97.5 F L 122 H 20 129/79 90 L 03/21/24 12:37 86 03/21/24 12:27 90 Intake and Output 03/21/24 03/22/24 03/22/24 22:59 06:59 14:59 Intake Total 54.854 150 Balance 54.854 150 Intake: Intake, IV Titration 54.854 Amount Heparin Sod,Pork in 0.45% 54.854 NaCl 25,000 unit In 0.45 % NaCl 1 250ml.bag @ 12 UNITS/KG/HR 7.566 mls/hr IV .Q24H [facility] Rx#: [id number] Oral 150 Other: Voiding Method Toilet Toilet Toilet # Voids 3 1 Results 03/22/24 04:07 03/22/24 04:07 Cardiac Enzymes 03/22/24 Range/Units 04:07 AST 102 H (13-35) U/L Coagulation 03/21/24 03/22/24 Range/Units 20:10 04:07 PT 10.8 11.3 (10.0-12.5) sec APTT 23.4 51.8 H (22.0-30.0) sec CBC 03/21/24 03/22/24 Range/Units 20:10 04:07 WBC 12.2 H 10.48 H (3.8-10.6) k/uL RBC 4.04 3.96 L (3.80-5.40) m/uL Hgb 12.3 11.7 L (11.4-16.0) gm/dL Hct 37.1 35.3 L (34.0-46.0) % Plt Count 303 295 (150-450) k/uL Comprehensive Metabolic Panel 03/22/24 Range/Units 04:07 Sodium 146 H (135-145) mmol/L Potassium 4.5 (3.5-5.5) mmol/L Chloride 114 H (96-109) mmol/L Carbon Dioxide 19.6 L (21.6-31.8) mmol/L BUN 33.6 H (9.0-27.0) mg/dL Creatinine 1.0 (0.6-1.5) mg/dL Glucose 133 H (70-110) mg/dL Calcium 9.0 (8.7-10.3) mg/dL AST 102 H (13-35) U/L ALT 120 H (8-44) U/L Alkaline Phosphatase 62 (41-126) U/L Total Protein 6.0 L (6.2-8.2) g/dL Albumin 3.7 L (3.8-4.9) g/dL Current Medications Generic Name Dose Route Start Last Admin Trade Name Freq PRN Reason Stop Dose Admin Albuterol/Ipratropium 3 ml 03/18/24 16:00 03/22/24 09:00 Ipratropium-Albuterol 3 Ml Neb INHALATION 3 ml RT-QID [facility] Administration Albuterol/Ipratropium 3 ml 03/18/24 12:12 Ipratropium-Albuterol 3 Ml Neb INHALATION RT-Q4H PRN shortness of breath Amlodipine Besylate 10 mg 03/19/24 09:00 03/22/24 08:48 Amlodipine 10 Mg Tab PO 10 mg DAILY [facility] Administration Artificial Tears 1 drops 03/18/24 21:00 03/22/24 08:49 Artificial Tears-Hypromellose Drops 15 Ml Btl BOTH EYES 1 drops BID [facility] Administration Aspirin 81 mg 03/19/24 09:00 03/22/24 08:48 Aspirin 81 Mg PO 81 mg DAILY [facility] Administration Atorvastatin Calcium 20 mg 03/19/24 09:00 03/22/24 08:48 Atorvastatin 20 Mg Tab PO 20 mg DAILY [facility] Administration Budesonide/Formoterol Fumarate 2 puff 03/19/24 08:00 03/22/24 09:00 Symbicort 160-4.5 Mcg Inhaler INHALATION 2 puff RT-BID [facility] Administration Cholecalciferol 50 mcg 03/19/24 09:00 03/22/24 08:48 Cholecalciferol 25 Mcg (1000 Iu) Tablet PO 50 mcg DAILY [facility] Administration Famotidine 20 mg 03/19/24 09:00 03/22/24 08:48 Famotidine 20 Mg Tab PO 20 mg DAILY [facility] Administration Furosemide 20 mg 03/22/24 10:30 03/22/24 12:04 Furosemide 20 Mg Tab PO 20 mg DAILY [facility] Administration Guaifenesin/Dextromethorphan 10 ml 03/20/24 11:30 03/22/24 11:45 Guaifenesin-Dm 100-10mg/5ml 10 Ml Cup PO 10 ml Q6HR PRN Administration Cough Heparin Sodium (Porcine) 0 unit 03/21/24 19:52 Heparin Sodium 1,000 Un/Ml (10ml Vl) IV PER PROTOCOL PRN Low PTT Protocol Sodium Chloride 1,000 mls @ 100 mls/hr 03/18/24 12:15 03/22/24 04:45 Saline 0.9% IV Not Given .Q10H [facility] Heparin Sodium/Sodium Chloride 250 mls @ 7.566 mls/hr 03/21/24 20:00 03/22/24 04:43 25,000 unit/ Sodium Chloride IV 03/22/24 18:00 12 units/kg/hr .Q24H [facility] 7.566 mls/hr Titration Protocol 12 UNITS/KG/HR Isosorbide Mononitrate 30 mg 03/19/24 09:00 03/22/24 08:48 Isosorbide Mononitrate Er 30 Mg Tab.Er.24h PO 30 mg DAILY [facility] Administration Levothyroxine Sodium 88 mcg 03/19/24 06:30 03/22/24 05:40 Levothyroxine 88 Mcg Tab PO 88 mcg DAILY@0630 [facility] Administration Lisinopril 40 mg 03/19/24 09:00 03/22/24 08:48 Lisinopril 20 Mg Tab PO 40 mg DAILY [facility] Administration Methylprednisolone Sodium Succinate 60 mg 03/19/24 06:00 03/22/24 12:04 Methylprednisolone Sod Succi 125 Mg/2 Ml Vial IV 60 mg Q6HR [facility] Administration Metoprolol Tartrate 25 mg 03/21/24 21:00 03/22/24 08:48 Metoprolol Tartrate 25 Mg Tab PO 25 mg BID [facility] Administration Miscellaneous Information 1 each 03/18/24 12:12 Pneumonia Protocol Utilized 1 Each Misc PO ONCE PRN Per Protocol Rivaroxaban 20 mg 03/22/24 17:30 Rivaroxaban 20 Mg Tab PO W/SUPPER [facility] Protocol Tramadol HCl 50 mg 03/18/24 14:31 Tramadol 50 Mg Tab PO BID PRN Pain Intake and Output 03/21/24 03/22/24 03/22/24 22:59 06:59 14:59 Intake Total 54.854 150 Balance 54.854 150 Intake: Intake, IV Titration 54.854 Amount Heparin Sod,Pork in 0.45% 54.854 NaCl 25,000 unit In 0.45 % NaCl 1 250ml.bag @ 12 UNITS/KG/HR 7.566 mls/hr IV .Q24H [facility] Rx#: [id number] Oral 150 Other: Voiding Method Toilet Toilet Toilet # Voids 3 1 03/22/24 04:07 03/22/24 04:07
--- NOTE | 2024-03-22 13:15 | P.PN ---
Subjective Progress Note Date: 03/22/24 Principal diagnosis: Pneumonia. Patient is an 78-year-old white female with past medical history significant for COPD, former tobacco smoker, hypertension, hyperlipidemia, hypothyroidism, "leaky valve". She follows in the pulmonary office with Dr. Dwyer for management of her COPD. She has an FEV1 63% of predicted. She normally utilizes a combination of Advair and as needed Ventolin HFA inhaler. Presented the emergency department yesterday morning with a chief complaint of left-sided chest pain, rated 8/10 on a 10 point numerical scale, especially worse with coughing and deep breathing. Associated persistent nonproductive cough and progressively worsening shortness of breath since Saturday. No significant fevers, chills, sputum production, hemoptysis. She does normally use 3 L/min home O2. Denies any nausea, vomiting, diarrhea. Oral intake has been poor. Chest x-ray taken on arrival showing a left perihilar infiltrate. Follow-up chest CTA negative for filling defects, shows advanced emphysematous changes, as well as, a new lingular consolidation when compared to previous chest CTA taken November,. CBC remarkable for leukocytosis with left shift. CMP: Sodium 140, potassium 3.8, chloride 106, serum bicarb 24, BUN 31, creatinine 0.9, glucose 125. Magnesium 1.4. LFTs unremarkable. Troponins less than 0.012 x 3. NT proBNP 1360. EKG demonstrating sinus rhythm, rate 91 bpm, no acute ischemic abnormalities. She has been started on a combination of Rocephin and azithromycin in the ED. On my initial evaluation, remains in the emergency dep artment. She is on 3 L/min nasal cannula, which she wears at home. Not in any respiratory distress. Continues to have a dry congested cough. Current vitals: Heart rate 80 bpm, blood pressure 119/73 mmHg, nontachypneic, SpO2 91% on 3 L/min nasal cannula. The patient is seen today March 20, 2024 in follow-up on the regular medical floor. She is currently sitting up in bed. Awake and alert in no acute distress. She is maintaining good O2 saturations in the 90s on 3 L/min per nasal cannula. She has normal saline at 50 mL/h. Her procalcitonin was positive at 0.76. She remains on ceftriaxone and azithromycin. She is being treated for a left lower lobe pneumonia. Chest x-ray did reveal mild cardiomegaly and COPD with a patchy left greater than right mid and lower lung opacities. Trace left pleural effusion persists. Still has quite a bit of cough and congestion. Ultras pending. White count 15.1. Hemoglobin 11.6. Platelets 220. Sodium 143. Potassium 4.0. Bicarb 19. BUN 28. Creatinine 1.0. Glucose 175. Shy on DuoNeb inhalations, Symbicort, Solu-Medrol. Lovenox for DVT prophylaxis. The patient is seen today March 21, 2024 in follow-up on the regular medical fl oor. She is currently resting in bed. Family at the bedside. She is awake and alert in no acute distress. Maintaining O2 saturation in the 90s on 3 L/min per nasal cannula. She is feeling a bit better today compared to yesterday. She remains on DuoNeb inhalations, Symbicort, Solu-Medrol. Lovenox for DVT prophylaxis. She is continued on Rocephin. Procalcitonin was 0.76. No new labs today. Progress note dated March 22, 2024. The patient is seen today in room 380. The patient developed atrial fibrillation last night. Currently, she is on 4 L oxygen by nasal cannula, IV heparin, and saline at 100 cc an hour. She is in no distress currently. Laboratory data includes a white count 10.5, hemoglobin 11.7, hematocrit 35.3, and a platelet count of 295,000. PTT is 51.8. Sodium 146, potassium 4.5, chlorides 114, CO2 20, anion gap 12, BUN 34, creatinine 1.0. Glucose 128. Blood cultures are currently pending or negative. Objective - Vital Signs Vital signs: Vital Signs Temp 97.7 F 03/22/24 08:00 Pulse 94 03/22/24 12:44 Resp 20 03/22/24 08:00 BP 125/87 03/22/24 08:00 Pulse Ox 89 L 03/22/24 09:03 FiO2 Intake & Output 03/21/24 03/22/24 03/22/24 18:59 06:59 18:59 Intake Total 54.854 150 Balance 54.854 150 Intake: Intake, IV Titration 54.854 Amount Heparin Sod,Pork in 0.45% 54.854 NaCl 25,000 unit In 0.45 % NaCl 1 250ml.bag @ 12 UNITS/KG/HR 7.566 mls/hr IV .Q24H [facility] Rx#: [id number] Oral 150 Other: Voiding Method Toilet Toilet # Voids 3 1 - Exam No acute distress, oriented 3. The patient is currently on 4 L. HEENT examination is grossly unremarkable. Mucous membranes are moist. No oral lesions. Neck supple. Full range of motion. No adenopathy thyromegaly or neck vein distention. Cardiovascular examination reveals an irregular rhythm and rate. S1-S2 normal. No S3 or S4. No discernible murmur noted. Lungs reveal bilateral mild rhonchi. No crackles. Breath sounds equal. No wheezes. Abdomen soft bowel sounds are heard. No masses or tenderness. Extremities are intact. No cyanosis clubbing or edema. Skin is without rash or lesion. Neurologic examination is brief but nonfocal. - Labs CBC & Chem 7: 03/22/24 04:07 03/22/24 04:07 Labs: Abnormal Lab Results - Last 24 Hours (Table) 03/21/24 03/21/24 03/22/24 Range/Units 14:32 20:10 04:07 WBC 12.2 H (3.8-10.6) k/uL RBC (4.10-5.20) X 10*6/uL Hgb (12.0-15.0) g/dL Hct (37.2-46.3) % Immature Gran # (0.00-0.04) X 10*3/uL Neutrophils # 11.1 H (1.3-7.7) k/uL Lymphocytes # 0.5 L (1.0-4.8) k/uL Eosinophils # (0.04-0.35) X 10*3/uL APTT (22.0-30.0) sec Sodium 146 H (135-145) mmol/L Chloride 114 H (96-109) mmol/L Carbon Dioxide 19.6 L (21.6-31.8) mmol/L Anion Gap 12.40 H (4.00-12.00) mmol/L BUN 33.6 H (9.0-27.0) mg/dL Est GFR (CKD-EPI) 57 L (>=60) BUN/Creatinine Ratio 33.60 H (12.00-20.00) Ratio Glucose 133 H (70-110) mg/dL POC Glucose (mg/dL) (70-110) mg/dL Magnesium 3.3 H 2.8 H (1.6-2.3) mg/dL AST 102 H (13-35) U/L ALT 120 H (8-44) U/L Total Protein 6.0 L (6.2-8.2) g/dL Albumin 3.7 L (3.8-4.9) g/dL TSH (0.465-4.680) mIU/L 03/22/24 03/22/24 03/22/24 Range/Units 04:07 04:07 08:50 WBC 10.48 H (3.8-10.6) k/uL RBC 3.96 L (4.10-5.20) X 10*6/uL Hgb 11.7 L (12.0-15.0) g/dL Hct 35.3 L (37.2-46.3) % Immature Gran # 0.38 H (0.00-0.04) X 10*3/uL Neutrophils # 8.83 H (1.3-7.7) k/uL Lymphocytes # 0.77 L (1.0-4.8) k/uL Eosinophils # 0.02 L (0.04-0.35) X 10*3/uL APTT 51.8 H (22.0-30.0) sec Sodium (135-145) mmol/L Chloride (96-109) mmol/L Carbon Dioxide (21.6-31.8) mmol/L Anion Gap (4.00-12.00) mmol/L BUN (9.0-27.0) mg/dL Est GFR (CKD-EPI) (>=60) BUN/Creatinine Ratio (12.00-20.00) Ratio Glucose (70-110) mg/dL POC Glucose (mg/dL) (70-110) mg/dL Magnesium (1.6-2.3) mg/dL AST (13-35) U/L ALT (8-44) U/L Total Protein (6.2-8.2) g/dL Albumin (3.8-4.9) g/dL TSH 0.336 L (0.465-4.680) mIU/L 03/22/24 Range/Units 11:29 WBC (3.8-10.6) k/uL RBC (4.10-5.20) X 10*6/uL Hgb (12.0-15.0) g/dL Hct (37.2-46.3) % Immature Gran # (0.00-0.04) X 10*3/uL Neutrophils # (1.3-7.7) k/uL Lymphocytes # (1.0-4.8) k/uL Eosinophils # (0.04-0.35) X 10*3/uL APTT (22.0-30.0) sec Sodium (135-145) mmol/L Chloride (96-109) mmol/L Carbon Dioxide (21.6-31.8) mmol/L Anion Gap (4.00-12.00) mmol/L BUN (9.0-27.0) mg/dL Est GFR (CKD-EPI) (>=60) BUN/Creatinine Ratio (12.00-20.00) Ratio Glucose (70-110) mg/dL POC Glucose (mg/dL) 128 H (70-110) mg/dL Magnesium (1.6-2.3) mg/dL AST (13-35) U/L ALT (8-44) U/L Total Protein (6.2-8.2) g/dL Albumin (3.8-4.9) g/dL TSH (0.465-4.680) mIU/L Microbiology - Last 24 Hours (Table) 03/18/24 12:12 Blood Culture - Preliminary Blood Assessment and Plan Assessment: Community-acquired pneumonia. New onset atrial fibrillation. Acute COPD exacerbation, secondary to above. Acute on chronic dyspnea. Acute on chronic hypoxemic respiratory failure, currently on 3 L/min nasal cannula. Acute leukocytosis. History of COVID-19 pneumonia. Moderate chronic obstructive pulmonary disease, with a baseline FEV1 63% of predicted. Chronic hypoxemic respiratory failure. History of hyperlipidemia. Hypertension. History of hypothyroidism. Former tobacco dependence. Plan: Plan dated March 22, 2024. The patient is seen today in room 380. The patient continues on O2 at 4 L. The patient is receiving IV heparin. She is also getting saline at 100 cc an hour. She developed some atrial fibrillation with RVR. She was seen by cardiology. Labs, x-rays, and medications are reviewed. The patient was initially admitted with a diagnosis of community-acquired pneumonia. We will continue to follow make recommendations along the way. Prognosis is certainly guarded. Time with Patient: Less than 30
--- NOTE | 2024-03-22 14:37 | P.PN ---
Subjective Progress Note Date: 03/22/24 Patient is evaluated in follow-up on the medical floor currently on IV Solu- Medrol and IV ceftriaxone for an acute COPD exacerbation. Patient got into atrial fibrillation with RVR overnight was started on IV Cardizem and IV heparin. Cardiology consulted patient has been transition to oral metoprolol additionally will be transition to oral Xarelto today and taken off the IV heparin drip. Patient is continued to report some mild lower extremity edema was started on oral Lasix daily. Review of Systems Constitutional: Denied any fatigue denied any fever. Cardio vascular: denied any chest pain, palpitations Gastrointestinal: denied any nausea, vomiting, diarrhea Pulmonary: Reports shortness of breath and cough Neurologic denied any new focal deficits All inpatient medications were reviewed and appropriate changes in these medications as dictated in the interval history and assessment and plan. PHYSICAL EXAMINATION: GENERAL: The patient is alert and oriented x3, not in any acute distress. Well developed, well nourished. HEENT: Pupils are round and equally reacting to light. EOMI. No scleral icterus. No conjunctival pallor. Normocephalic, atraumatic. No pharyngeal erythema. No thyromegaly. CARDIOVASCULAR: S1 and S2 present. No murmurs, rubs, or gallops. PULMONARY: Chest is clear to auscultation, no wheezing or crackles. ABDOMEN: Soft, nontender, nondistended, normoactive bowel sounds. No palpable organomegaly. MUSCULOSKELETAL: No joint swelling or deformity. EXTREMITIES: No cyanosis, clubbing, or pedal edema. NEUROLOGICAL: Gross neurological examination did not reveal any focal deficits. SKIN: No rashes. Assessment and plan New onset atrial fibrillation with RVR Community-acquired pneumonia Acute COPD exacerbation Acute on chronic hypoxic respiratory failure: 3 L oxygen at baseline History of COVID-19 pneumonia Leukocytosis Hypertension Hyperlipidemia Hypothyroidism Former smoker Plan: Patient has completed ceftriaxone therapy Continue DuoNebs 3 mL 4 times daily and Solu-Medrol 60 mg IV every 6 hours Transition from IV heparin to oral xarelto Continue on IV cardizem has been started on oral metoprolol Started on oral lasix daily Encourage ambulation Repeat BMP in the AM Cardiology, pulmonary following DVT prophylaxis: Subcutaneous Lovenox. The impression and plan of care has been dictated by Kayla Vila, Nurse Practitioner as directed. Dr. Ivonne MD I have performed a history and physical examination and medical decision making of this patient, discussed the same with the dictator, and agree with the dictators assessment and plan as written, documented as a scribe. Based on total visit time, I have performed more than 50% of this visit. Objective - Vital Signs Vital signs: Vital Signs Temp 97.7 F 03/22/24 08:00 Pulse 94 03/22/24 12:44 Resp 20 03/22/24 08:00 BP 125/87 03/22/24 08:00 Pulse Ox 89 L 03/22/24 09:03 FiO2 Intake & Output 03/21/24 03/22/24 03/22/24 18:59 06:59 18:59 Intake Total 54.854 150 Balance 54.854 150 Intake: Intake, IV Titration 54.854 Amount Heparin Sod,Pork in 0.45% 54.854 NaCl 25,000 unit In 0.45 % NaCl 1 250ml.bag @ 12 UNITS/KG/HR 7.566 mls/hr IV .Q24H [facility] Rx#: [id number] Oral 150 Other: Voiding Method Toilet Toilet # Voids 3 1 - Labs CBC & Chem 7: 03/22/24 04:07 03/22/24 04:07 Labs: Abnormal Lab Results - Last 24 Hours (Table) 03/21/24 03/21/24 03/22/24 Range/Units 14:32 20:10 04:07 WBC 12.2 H (3.8-10.6) k/uL RBC (4.10-5.20) X 10*6/uL Hgb (12.0-15.0) g/dL Hct (37.2-46.3) % Immature Gran # (0.00-0.04) X 10*3/uL Neutrophils # 11.1 H (1.3-7.7) k/uL Lymphocytes # 0.5 L (1.0-4.8) k/uL Eosinophils # (0.04-0.35) X 10*3/uL APTT (22.0-30.0) sec Sodium 146 H (135-145) mmol/L Chloride 114 H (96-109) mmol/L Carbon Dioxide 19.6 L (21.6-31.8) mmol/L Anion Gap 12.40 H (4.00-12.00) mmol/L BUN 33.6 H (9.0-27.0) mg/dL Est GFR (CKD-EPI) 57 L (>=60) BUN/Creatinine Ratio 33.60 H (12.00-20.00) Ratio Glucose 133 H (70-110) mg/dL POC Glucose (mg/dL) (70-110) mg/dL Magnesium 3.3 H 2.8 H (1.6-2.3) mg/dL AST 102 H (13-35) U/L ALT 120 H (8-44) U/L Total Protein 6.0 L (6.2-8.2) g/dL Albumin 3.7 L (3.8-4.9) g/dL TSH (0.465-4.680) mIU/L 03/22/24 03/22/24 03/22/24 Range/Units 04:07 04:07 08:50 WBC 10.48 H (3.8-10.6) k/uL RBC 3.96 L (4.10-5.20) X 10*6/uL Hgb 11.7 L (12.0-15.0) g/dL Hct 35.3 L (37.2-46.3) % Immature Gran # 0.38 H (0.00-0.04) X 10*3/uL Neutrophils # 8.83 H (1.3-7.7) k/uL Lymphocytes # 0.77 L (1.0-4.8) k/uL Eosinophils # 0.02 L (0.04-0.35) X 10*3/uL APTT 51.8 H (22.0-30.0) sec Sodium (135-145) mmol/L Chloride (96-109) mmol/L Carbon Dioxide (21.6-31.8) mmol/L Anion Gap (4.00-12.00) mmol/L BUN (9.0-27.0) mg/dL Est GFR (CKD-EPI) (>=60) BUN/Creatinine Ratio (12.00-20.00) Ratio Glucose (70-110) mg/dL POC Glucose (mg/dL) (70-110) mg/dL Magnesium (1.6-2.3) mg/dL AST (13-35) U/L ALT (8-44) U/L Total Protein (6.2-8.2) g/dL Albumin (3.8-4.9) g/dL TSH 0.336 L (0.465-4.680) mIU/L 03/22/24 Range/Units 11:29 WBC (3.8-10.6) k/uL RBC (4.10-5.20) X 10*6/uL Hgb (12.0-15.0) g/dL Hct (37.2-46.3) % Immature Gran # (0.00-0.04) X 10*3/uL Neutrophils # (1.3-7.7) k/uL Lymphocytes # (1.0-4.8) k/uL Eosinophils # (0.04-0.35) X 10*3/uL APTT (22.0-30.0) sec Sodium (135-145) mmol/L Chloride (96-109) mmol/L Carbon Dioxide (21.6-31.8) mmol/L Anion Gap (4.00-12.00) mmol/L BUN (9.0-27.0) mg/dL Est GFR (CKD-EPI) (>=60) BUN/Creatinine Ratio (12.00-20.00) Ratio Glucose (70-110) mg/dL POC Glucose (mg/dL) 128 H (70-110) mg/dL Magnesium (1.6-2.3) mg/dL AST (13-35) U/L ALT (8-44) U/L Total Protein (6.2-8.2) g/dL Albumin (3.8-4.9) g/dL TSH (0.465-4.680) mIU/L Microbiology - Last 24 Hours (Table) 03/18/24 12:12 Blood Culture - Preliminary Blood Assessment and Plan Time with Patient: Less than 30
[2024-03-22 16:57] LABS: Glucose,Whole Blood 146 mg/dL (70-110)
[2024-03-22] MEDS ORDERED: RIVAROXABAN 15 MG TAB PO SCH (17:30)
[2024-03-22] MEDS: RIVAROXABAN 20 MG TAB PO SCH (17:58)
[2024-03-22 21:08] LABS: Glucose,Whole Blood 136 mg/dL (70-110)
[2024-03-23 06:26] LABS: Glucose,Whole Blood 135 mg/dL (70-110)
[2024-03-23 08:14] LABS: Basophils % (A) 0 %; Eosinophils % (A) 0 %; HCT 36.9 % (34.0-46.0); Lymphocytes # (A) 0.5 k/uL (1.0-4.8); Lymphocytes % (A) 6 %; MCH 29.4 pg (25.0-35.0); MCHC 32.6 g/dL (31.0-37.0); Mean Platelet Volume 7.1; Monocytes # (A) 0.4 k/uL (0-1.0); Monocytes % (A) 5 %; Neutrophils # (A) 8.1 k/uL (1.3-7.7); Neutrophils % (A) 87 %; Platelet Count 305 k/uL (150-450); WBC 9.3 k/uL (3.8-10.6)
[2024-03-23 08:26] LABS: ALT 128 U/L (4-34); AST 63 U/L (14-36); African American GFR (CKD) 68 (>60 ml/min/1.73 sqM); Albumin 3.7 g/dL (3.5-5.0); Alkaline Phosphatase 64 U/L (38-126); Anion Gap 10 mmol/L; Blood Urea Nitrogen 37 mg/dL (7-17); Calcium 9.6 mg/dL (8.4-10.2); Carbon Dioxide 22 mmol/L (22-30); Chloride 112 mmol/L (98-107); Glucose 126 mg/dL (74-99); Non-African American GFR(CKD) 59 (>60 ml/min/1.73 sqM); Sodium 144 mmol/L (137-145); Total Bilirubin 0.5 mg/dL (0.2-1.3); Total Protein 6.1 g/dL (6.3-8.2)
[2024-03-23 11:31] LABS: Glucose,Whole Blood 134 mg/dL (70-110)
--- NOTE | 2024-03-23 14:17 | P.PN ---
Subjective HISTORY OF PRESENT ILLNESS: This is a 78-year-old female with a past medical history significant for hypertension, hyperlipidemia, COPD, hypothyroidism, and former nicotine dependence. Patient follows in the office with Dr. Ma. We have been asked to see the patient in consultation for new onset atrial fibrillation. Patient examined at the bedside. Patient presented to the hospital to chief complaint of shortness of breath. She states this started about 4 5 days ago. She also reports having a frequent cough at home. The patient was found to have pneumonia and was started on IV antibiotics. Additionally she is being treated for acute COPD exacerbation. Patient was in sinus mechanism when she presented to the hospital. However yesterday patient went into A-fib with RVR. The patient denies any known history of atrial fibrillation. She denied having any palpitations at that time. Patient was started on IV heparin and IV Cardizem. She is remains in atrial fibrillation this morning with heart rate around 100. She denies chest pain or pressure. DIAGNOSTICS: - EKG reveals sinus mechanism with no signs of acute ischemia. Repeat EKG reveals atrial fibrillation with RVR - Chest xray infiltrate in the left perihilar region correlate for pneumonia. - Laboratory data: WBC 10.48. Hemoglobin 11.7. Platelet count 295. Sodium 146. Potassium 4.5. BUN 33. Creatinine 1.0. - Current home cardiac medications include aspirin 81 mg daily, Lipitor 20 mg daily, Imdur 30 mg daily, lisinopril 40 mg daily - Most recent echocardiogram obtained in January 2024 revealed ejection fraction 55 to 60%, mild LVH, mild aortic stenosis with mean gradient 13 mmHg, mild aortic regurgitation, mild TR, and mild pulm hypertension - Cardiac catheterization history: August 2021 revealing fixed inferior basal defect 03/23/2024 Patient examined this morning at the bedside. Patient denies chest pain or pressure. She continues to report shortness of breath and frequent coughing. Denies any palpitations. Telemetry reveals atrial fibrillation with heart rate in the 80s. Blood pressure stable. PHYSICAL EXAM: VITAL SIGNS: Reviewed. GENERAL: Well-developed in no acute distress. HEENT: Head is normocephalic. Pupils are equal, round. Sclerae anicteric. Mucous membranes of the mouth are moist. Neck supple. No JVD or thyromegaly LUNGS: Respirations even and unlabored. Lungs with decreased air exchange throughout HEART: Irregular rate and rhythm. S1 and S2 heard. Systolic murmur noted ABDOMEN: Soft. Nondistended. Nontender. EXTREMITIES: Normal range of motion. No clubbing or cyanosis. Peripheral pulses intact. Trace bilateral lower extremity edema NEUROLOGIC: Awake and alert. Oriented x 3. ASSESSMENT: Shortness of breath Pneumonia Acute COPD exacerbation New onset atrial fibrillation with RVR, currently rate controlled Chronic hypoxic respiratory failure on home oxygen History of hypertension History of hyperlipidemia Hypothyroidism Former nicotine dependence PLAN: No need to repeat echocardiogram as this was performed in January 2024 Continue Xarelto Continue metoprolol 25 mg twice a day Continue telemetry monitoring Continue additional home cardiac medications Patient is currently stable from a cardiac perspective Further recommendations pending patient course Nurse practitioner note has been reviewed by physician. Signing provider agrees with the documented findings, assessment, and plan of care documented by FINANCIAL SYSTEMS ANALYST as a scribe. Objective - Vital Signs Vital signs: Vital Signs Temp 98.0 F 03/23/24 04:00 Pulse 92 03/23/24 08:31 Resp 16 03/23/24 08:00 BP 140/80 03/23/24 08:00 Pulse Ox 93 L 03/23/24 08:22 FiO2 Intake & Output 03/22/24 03/23/24 03/23/24 18:59 06:59 18:59 Intake Total 1050 180 Balance 1050 180 Weight 68.4 kg Intake: Intake, IV Titration 750 Amount Sodium Chloride 0.9% 1, 700 000 ml @ 100 mls/hr IV . Q10H [facility] Rx#:[id number] cefTRIAXone 2 gm In 50 Sodium Chloride 0.9% 50 ml @ 100 mls/hr IVPB Q24HR [facility] Rx#:[id number] Oral 300 180 Other: Voiding Method Toilet Toilet # Voids 1 - Labs CBC & Chem 7: 03/23/24 07:51 03/23/24 07:51 Labs: Abnormal Lab Results - Last 24 Hours (Table) 03/22/24 03/22/24 03/22/24 Range/Units 04:07 04:07 11:29 WBC 10.48 H (4.50-10.00) X 10*3/uL RBC 3.96 L (4.10-5.20) X 10*6/uL Hgb 11.7 L (12.0-15.0) g/dL Hct 35.3 L (37.2-46.3) % Immature Gran # 0.38 H (0.00-0.04) X 10*3/uL Neutrophils # 8.83 H (1.80-7.70) X 10*3/uL Lymphocytes # 0.77 L (0.90-5.00) X 10*3/uL Eosinophils # 0.02 L (0.04-0.35) X 10*3/uL Sodium 146 H (135-145) mmol/L Chloride 114 H (96-109) mmol/L Carbon Dioxide 19.6 L (21.6-31.8) mmol/L Anion Gap 12.40 H (4.00-12.00) mmol/L BUN 33.6 H (9.0-27.0) mg/dL Est GFR (CKD-EPI) 57 L (>=60) BUN/Creatinine Ratio 33.60 H (12.00-20.00) Ratio Glucose 133 H (70-110) mg/dL POC Glucose (mg/dL) 128 H (70-110) mg/dL Magnesium 2.8 H (1.5-2.4) mg/dL AST 102 H (13-35) U/L ALT 120 H (8-44) U/L Total Protein 6.0 L (6.2-8.2) g/dL Albumin 3.7 L (3.8-4.9) g/dL 03/22/24 03/22/24 03/23/24 Range/Units 16:55 21:07 06:26 WBC (4.50-10.00) X 10*3/uL RBC (4.10-5.20) X 10*6/uL Hgb (12.0-15.0) g/dL Hct (37.2-46.3) % Immature Gran # (0.00-0.04) X 10*3/uL Neutrophils # (1.80-7.70) X 10*3/uL Lymphocytes # (0.90-5.00) X 10*3/uL Eosinophils # (0.04-0.35) X 10*3/uL Sodium (135-145) mmol/L Chloride (96-109) mmol/L Carbon Dioxide (21.6-31.8) mmol/L Anion Gap (4.00-12.00) mmol/L BUN (9.0-27.0) mg/dL Est GFR (CKD-EPI) (>=60) BUN/Creatinine Ratio (12.00-20.00) Ratio Glucose (70-110) mg/dL POC Glucose (mg/dL) 146 H 136 H 135 H (70-110) mg/dL Magnesium (1.5-2.4) mg/dL AST (13-35) U/L ALT (8-44) U/L Total Protein (6.2-8.2) g/dL Albumin (3.8-4.9) g/dL 03/23/24 03/23/24 Range/Units 07:51 07:51 WBC (4.50-10.00) X 10*3/uL RBC (4.10-5.20) X 10*6/uL Hgb (12.0-15.0) g/dL Hct (37.2-46.3) % Immature Gran # (0.00-0.04) X 10*3/uL Neutrophils # 8.1 H (1.80-7.70) X 10*3/uL Lymphocytes # 0.5 L (0.90-5.00) X 10*3/uL Eosinophils # (0.04-0.35) X 10*3/uL Sodium (135-145) mmol/L Chloride 112 H (96-109) mmol/L Carbon Dioxide (21.6-31.8) mmol/L Anion Gap (4.00-12.00) mmol/L BUN 37 H (9.0-27.0) mg/dL Est GFR (CKD-EPI) (>=60) BUN/Creatinine Ratio (12.00-20.00) Ratio Glucose 126 H (70-110) mg/dL POC Glucose (mg/dL) (70-110) mg/dL Magnesium (1.5-2.4) mg/dL AST 63 H (13-35) U/L ALT 128 H (8-44) U/L Total Protein 6.1 L (6.2-8.2) g/dL Albumin (3.8-4.9) g/dL
--- NOTE | 2024-03-23 16:25 | P.PN ---
Subjective Progress Note Date: 03/23/24 Patient is an 78-year-old white female with past medical history significant for COPD, former tobacco smoker, hypertension, hyperlipidemia, hypothyroidism, "leaky valve". She follows in the pulmonary office with Dr. Dwyer for management of her COPD. She has an FEV1 63% of predicted. She normally utilizes a combination of Advair and as needed Ventolin HFA inhaler. Presented the emergency department yesterday morning with a chief complaint of left-sided chest pain, rated 8/10 on a 10 point numerical scale, especially worse with coughing and deep breathing. Associated persistent nonproductive cough and progressively worsening shortness of breath since Saturday. No significant fevers, chills, sputum production, hemoptysis. She does normally use 3 L/min home O2. Denies any nausea, vomiting, diarrhea. Oral intake has been poor. Chest x-ray taken on arrival showing a left perihilar infiltrate. Follow-up chest CTA negative for filling defects, shows advanced emphysematous changes, as well as, a new lingular consolidation when compared to previous chest CTA taken November,. CBC remarkable for leukocytosis with left shift. CMP: Sodium 140, potassium 3.8, chloride 106, serum bicarb 24, BUN 31, creatinine 0.9, glucose 125. Magnesium 1.4. LFTs unremarkable. Troponins less than 0.012 x 3. NT proBNP 1360. EKG demonstrating sinus rhythm, rate 91 bpm, no acute ischemic abnormalities. She has been started on a combination of Rocephin and azithromycin in the ED. On my initial evaluation, remains in the emergency department. She is on 3 L/min nasal cannula, which she wears at home. Not in any respiratory distress. Continues to have a dry congested cough. Current vitals: Heart rate 80 bpm, blood pressure 119/73 mmHg, nontachypneic, SpO2 91% on 3 L/min nasal cannula. The patient is seen today March 20, 2024 in follow-up on the regular medical floor. She is currently sitting up in bed. Awake and alert in no acute distress. She is maintaining good O2 saturations in the 90s on 3 L/min per nasal cannula. She has normal saline at 50 mL/h. Her procalcitonin was positive at 0.76. She remains on ceftriaxone and azithromycin. She is being treated for a left lower lobe pneumonia. Chest x-ray did reveal mild cardiomegaly and COPD with a patchy left greater than right mid and lower lung opacities. Trace left pleural effusion persists. Still has quite a bit of cough and congestion. Ultras pending. White count 15.1. Hemoglobin 11.6. Platelets 220. Sodium 143. Potassium 4.0. Bicarb 19. BUN 28. Creatinine 1.0. Glucose 175. Shy on DuoNeb inhalations, Symbicort, Solu-Medrol. Lovenox for DVT prophylaxis. The patient is seen today March 21, 2024 in follow-up on the regular medical floor. She is currently resting in bed. Family at the bedside. She is awake and alert in no acute distress. Maintaining O2 saturation in the 90s on 3 L/min per nasal cannula. She is feeling a bit better today compared to yesterday. She remains on DuoNeb inhalations, Symbicort, Solu-Medrol. Lovenox for DVT prophylaxis. She is continued on Rocephin. Procalcitonin was 0.76. No new labs today. Progress note dated March 22, 2024. The patient is seen today in room 380. The patient developed atrial fibrillation last night. Currently, she is on 4 L oxygen by nasal cannula, IV heparin, and saline at 100 cc an hour. She is in no distress currently. Laboratory data includes a white count 10.5, hemoglobin 11.7, hematocrit 35.3, and a platelet count of 295,000. PTT is 51.8. Sodium 146, potassium 4.5, chlorides 114, CO2 20, anion gap 12, BUN 34, creatinine 1.0. Glucose 128. Blood cultures are currently pending or negative. On 03/23/2024, the patient is being seen for a follow-up. The patient is currently being treated for an acute COPD exacerbation and and lingular pneumonia. The patient has completed course of antibiotics. She feels better. Less bronchospastic and wheezy. No dyspnea at rest and she is currently on 3 L of oxygen by nasal cannula with a pulse ox of 91%. Noted the patient has been maintained on home O2 at 3 L. She remains on DuoNeb nebulized treatments [id number]. She is on IV Solu-Medrol 60 mg every 6 hours. She is also on Symbicort 2 puffs twice a day. She remains on long-term anticoagulation with Eliquis as the patient has atrial fibrillation. 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 Maintained on metoprolol 25 mg twice a day and maintained on anticoagulation with Xarelto. She is also on aspirin 81 mg p.o. daily, Lipitor 20 mg p.o. daily and she is also on Lasix 20 mg p.o. daily. She is on thyroid hormone replaceme nt 88 mcg of levothyroxine on a daily basis. Labs from today shows a WBC count 9.3 with a hemoglobin 12 and a platelet count of 305. Sodium is 144, BUN is 37 with a creatinine of 0.9. Free T4 was at 1.67. Procalcitonin level was 0.76. Echocardiogram from 02/06/2024 showed a normal left ejection fraction with mild aortic stenosis and mild aortic regurgitation. Objective - Vital Signs Vital signs: Vital Signs Temp 98.0 F 03/23/24 04:00 Pulse 84 03/23/24 11:35 Resp 16 03/23/24 08:00 BP 140/80 03/23/24 08:00 Pulse Ox 93 L 03/23/24 08:22 FiO2 Intake & Output 03/22/24 03/23/24 03/23/24 18:59 06:59 18:59 Intake Total 1050 180 Balance 1050 180 Weight 68.4 kg Intake: Intake, IV Titration 750 Amount Sodium Chloride 0.9% 1, 700 000 ml @ 100 mls/hr IV . Q10H [facility] Rx#:[id number] cefTRIAXone 2 gm In 50 Sodium Chloride 0.9% 50 ml @ 100 mls/hr IVPB Q24HR [facility] Rx#:[id number] Oral 300 180 Other: Voiding Method Toilet Toilet Toilet # Voids 1 - Exam No acute distress, oriented 3. The patient is currently on 3 L of O2 nasal cannula HEENT examination is grossly unremarkable. Mucous membranes are moist. No oral lesions. Neck supple. Full range of motion. No adenopathy thyromegaly or neck vein distention. Cardiovascular examination reveals an irregular rhythm and rate. S1-S2 normal. No S3 or S4. No discernible murmur noted. Lungs reveal bilateral mild rhonchi. No crackles. Breath sounds equal. No wheezes. Abdomen soft bowel sounds are heard. No masses or tenderness. Extremities are intact. No cyanosis clubbing or edema. Skin is without rash or lesion. Neurologic examination is brief but nonfocal. - Labs CBC & Chem 7: 03/23/24 07:51 03/23/24 07:51 Labs: Abnormal Lab Results - Last 24 Hours (Table) 03/22/24 03/22/24 03/23/24 Range/Units 16:55 21:07 06:26 Neutrophils # (1.3-7.7) k/uL Lymphocytes # (1.0-4.8) k/uL Chloride (98-107) mmol/L BUN (7-17) mg/dL Glucose (74-99) mg/dL POC Glucose (mg/dL) 146 H 136 H 135 H (70-110) mg/dL AST (14-36) U/L ALT (4-34) U/L Total Protein (6.3-8.2) g/dL 03/23/24 03/23/24 03/23/24 Range/Units 07:51 07:51 11:30 Neutrophils # 8.1 H (1.3-7.7) k/uL Lymphocytes # 0.5 L (1.0-4.8) k/uL Chloride 112 H (98-107) mmol/L BUN 37 H (7-17) mg/dL Glucose 126 H (74-99) mg/dL POC Glucose (mg/dL) 134 H (70-110) mg/dL AST 63 H (14-36) U/L ALT 128 H (4-34) U/L Total Protein 6.1 L (6.3-8.2) g/dL Assessment and Plan Plan: Acute COPD exacerbation with secondary shortness of breath, currently stable Acute lingular pneumonia/infiltrate, complete antibiotic course. Procalcitonin level is not elevated Atrial flutter/fibrillation with a controlled rate, currently on metoprolol and Xarelto for anticoagulation Acute on chronic dyspnea, secondary to above Acute on chronic hypoxemic respiratory failure, currently on 3 L/min nasal cannula. This is her baseline oxygen requirement Acute leukocytosis. History of COVID-19 pneumonia. Moderate chronic obstructive pulmonary disease, with a baseline FEV1 63% of predicted. Chronic hypoxemic respiratory failure. History of hyperlipidemia. Hypertension. History of hypothyroidism. Former tobacco dependence. Mild aortic stenosis with a preserved LV function and mild pulm hypertension Plan: patient currently at baseline oxygen requirement of 3 L/min nasal cannula Completed antibiotic course Continue IV Solu-Medrol and transition the patient to prednisone burst taper as of tomorrow Continue Symbicort Continue DuoNeb nebulized treatments [id number] Procalcitonin level is not elevated Atrial fibrillation is controlled and the patient is on anticoagulation with Xarelto Will continue to follow
[2024-03-23 16:38] LABS: Glucose,Whole Blood 135 mg/dL (70-110)
--- NOTE | 2024-03-23 17:27 | P.PN ---
Progress Note - Text Progress Note Date: 03/23/24 Patient is evaluated in follow-up on the medical floor currently on IV Solu- Medrol and IV ceftriaxone for an acute COPD exacerbation. Patient got into atrial fibrillation with RVR overnight was started on IV Cardizem and IV heparin. Cardiology consulted patient has been transition to oral metoprolol additionally will be transition to oral Xarelto today and taken off the IV heparin drip. Patient is continued to report some mild lower extremity edema was started on oral Lasix daily. March 23: Patient follows with Dr. Agapito Leal. History of COPD, essential hypertension, hypothyroid, hyperlipidemia, GERD, osteoarthritis. Sitting at the edge of the bed. Shortness of breath. Eating fair. Patient remains in A-fib in the low 100s. On Lopressor 25 twice daily. Cardiology following. Active Medications Albuterol/Ipratropium (Ipratropium-Albuterol 3 Ml Neb) 3 ml INHALATION RT-QID [facility] Last Admin: 03/23/24 15:19 Dose: 3 ml Albuterol/Ipratropium (Ipratropium-Albuterol 3 Ml Neb) 3 ml INHALATION RT-Q4H PRN PRN Reason: shortness of breath Amlodipine Besylate (Amlodipine 10 Mg Tab) 10 mg PO DAILY [facility] Last Admin: 03/23/24 08:26 Dose: 10 mg Artificial Tears (Artificial Tears-Hypromellose Drops 15 Ml Btl) 1 drops BOTH EYES BID [facility] Last Admin: 03/23/24 08:27 Dose: Not Given Aspirin (Aspirin 81 Mg) 81 mg PO DAILY [facility] Last Admin: 03/23/24 08:27 Dose: 81 mg Atorvastatin Calcium (Atorvastatin 20 Mg Tab) 20 mg PO DAILY [facility] Last Admin: 03/23/24 08:26 Dose: 20 mg Budesonide/Formoterol Fumarate (Symbicort 160-4.5 Mcg Inhaler) 2 puff INHALATION RT-BID [facility] Last Admin: 03/23/24 08:20 Dose: 2 puff Cholecalciferol (Cholecalciferol 25 Mcg (1000 Iu) Tablet) 50 mcg PO DAILY [facility] Last Admin: 03/23/24 08:26 Dose: 50 mcg Famotidine (Famotidine 20 Mg Tab) 20 mg PO DAILY [facility] Last Admin: 03/23/24 08:26 Dose: 20 mg Furosemide (Furosemide 20 Mg Tab) 20 mg PO DAILY [facility] Last Admin: 03/23/24 08:26 Dose: 20 mg Guaifenesin/Dextromethorphan (Guaifenesin-Dm 100-10mg/5ml 10 Ml Cup) 10 ml PO Q6HR PRN PRN Reason: Cough Last Admin: 03/23/24 08:29 Dose: 10 ml Heparin Sodium (Porcine) (Heparin Sodium 1,000 Un/Ml (10ml Vl)) 0 unit IV PER PROTOCOL PRN; Protocol PRN Reason: Low PTT Isosorbide Mononitrate (Isosorbide Mononitrate Er 30 Mg Tab.Er.24h) 30 mg PO DAILY [facility] Last Admin: 03/23/24 08:26 Dose: 30 mg Levothyroxine Sodium (Levothyroxine 88 Mcg Tab) 88 mcg PO DAILY@0630 [facility] Last Admin: 03/23/24 06:23 Dose: 88 mcg Lisinopril (Lisinopril 20 Mg Tab) 40 mg PO DAILY [facility] Last Admin: 03/23/24 08:26 Dose: 40 mg Methylprednisolone Sodium Succinate (Methylprednisolone Sod Succi 125 Mg/2 Ml Vial) 60 mg IV Q6HR [facility] Last Admin: 03/23/24 16:08 Dose: 60 mg Metoprolol Tartrate (Metoprolol Tartrate 25 Mg Tab) 25 mg PO BID [facility] Last Admin: 03/23/24 08:26 Dose: 25 mg Miscellaneous Information (Pneumonia Protocol Utilized 1 Each Misc) 1 each PO ONCE PRN PRN Reason: Per Protocol Rivaroxaban (Rivaroxaban 20 Mg Tab) 20 mg PO W/SUPPER [facility]; Protocol Last Admin: 03/23/24 16:09 Dose: 20 mg Tramadol HCl (Tramadol 50 Mg Tab) 50 mg PO BID PRN PRN Reason: Pain Social history: Smoked a pack a day for 50 years stopped about 10 years ago. . Physical examination: VITAL SIGNS: Afebrile, 100, 16, 131 x 84, 91% on 3 L GENERAL: Sitting at edge of the bed, but short of breath EYES: Pupils equal. Conjunctiva jen l. HEENT: External appearance of nose and ears normal, oral cavity grossly normal. NECK: JVD not raised; masses not palpable. HEART: Heart sounds irregular no edema. LUNGS: Respiratory rate increased, decreased breath sounds ABDOMEN: Soft, nontender, liver spleen not palpable, no masses palpable. PSYCH: Alert and oriented x3; mood and affect jen l. MUSCULOSKELETAL:No Clubbing/cyanosis;muscles-grossly intact. OA INVESTIGATIONS, reviewed in the clinical context: March 23: White count 9.3 hemoglobin 12 platelets 305 sodium 144 potassium 4 creatinine 0.92 EKG tracing personally reviewed by me-[March 21] atrial flutter with variable AV block rate 122 Echocardiogram [per cardiology notes] January 2024: EF 55 to 60%. Assessment and plan: -New onset atrial flutter/atrial fibrillation with RVR, currently heart rate in the high 100s Received IV Cardizem Lopressor 25 mg twice daily. Xarelto -Acute lingular pneumonia, suspect gram-negative organism Antibiotic completed -Acute COPD exacerbation, and a prior smoker, slow to respond DuoNeb. Symbicort. IV Solu-Medrol decreased to 40 mg every 8 -Acute on chronic hypoxic respiratory failure: 3 L oxygen at baseline History of COVID-19 pneumonia Leukocytosis -Essential hypertension Amlodipine 10 mg a day. Lopressor 25 mg twice daily -Hyperlipidemia Lipitor -Hypothyroidism Synthroid 88 mcg a day -Full code Discussed with patient. On Lopressor. Xarelto. Cut back IV Solu-Medrol to 40 mg every 8. Follow with cardiology pulmonary
[2024-03-23] MEDS: methylPREDNISolone SOD SUCCI 40 MG/ML 1 ML VIAL IV SCH (19:35)
[2024-03-23 20:43] LABS: Glucose,Whole Blood 168 mg/dL (70-110)
[2024-03-24 06:11] LABS: Glucose,Whole Blood 117 mg/dL (70-110)
[2024-03-24 11:34] LABS: Glucose,Whole Blood 118 mg/dL (70-110)
[2024-03-24] MEDS: BUDESONIDE 1 MG/2 ML NEBU INHALATION SCH (12:38)
[2024-03-24] MEDS: FORMOTEROL FUMARATE 20 MCG/2 ML NEBU INHALATION SCH (12:38)
[2024-03-24 12:42] LABS: ABG Base Excess 2.6 mmol/L; ABG HCO3 26 mmol/L (21-25); ABG Oxygen Saturation 88.9 % (94-97); ABG PCO2 35 mmHg (35-45); ABG PH 7.48 (7.35-7.45); ABG TCO2 27 mmol/L (19-24); Allen Test Performed? Yes
[2024-03-24 12:44] LABS: ABG PO2 51 mmHg (83-108)
--- NOTE | 2024-03-24 14:23 | P.PN ---
Subjective HISTORY OF PRESENT ILLNESS: This is a 78-year-old female with a past medical history significant for hypertension, hyperlipidemia, COPD, hypothyroidism, and former nicotine dependence. Patient follows in the office with Dr. Ma. We have been asked to see the patient in consultation for new onset atrial fibrillation. Patient examined at the bedside. Patient presented to the hospital to chief complaint of shortness of breath. She states this started about 4 5 days ago. She also reports having a frequent cough at home. The patient was found to have pneumonia and was started on IV antibiotics. Additionally she is being treated for acute COPD exacerbation. Patient was in sinus mechanism when she presented to the hospital. However yesterday patient went into A-fib with RVR. The patient denies any known history of atrial fibrillation. She denied having any palpitations at that time. Patient was started on IV heparin and IV Cardizem. She is remains in atrial fibrillation this morning with heart rate around 100. She denies chest pain or pressure. DIAGNOSTICS: - EKG reveals sinus mechanism with no signs of acute ischemia. Repeat EKG reveals atrial fibrillation with RVR - Chest xray infiltrate in the left perihilar region correlate for pneumonia. - Laboratory data: WBC 10.48. Hemoglobin 11.7. Platelet count 295. Sodium 146. Potassium 4.5. BUN 33. Creatinine 1.0. - Current home cardiac medications include aspirin 81 mg daily, Lipitor 20 mg daily, Imdur 30 mg daily, lisinopril 40 mg daily - Most recent echocardiogram obtained in January 2024 revealed ejection fraction 55 to 60%, mild LVH, mild aortic stenosis with mean gradient 13 mmHg, mild aortic regurgitation, mild TR, and mild pulm hypertension - Cardiac catheterization history: August 2021 revealing fixed inferior basal defect 03/23/2024 Patient examined this morning at the bedside. Patient denies chest pain or pressure. She continues to report shortness of breath and frequent coughing. Denies any palpitations. Telemetry reveals atrial fibrillation with heart rate in the 80s. Blood pressure stable. 03/24/2024 Patient examined this morning at the bedside. Patient currently denies chest pain or pressure. She continues to report occasional shortness of breath although improved. She remains in atrial fibrillation with controlled ventricular rate. PHYSICAL EXAM: VITAL SIGNS: Reviewed. GENERAL: Well-developed in no acute distress. HEENT: Head is normocephalic. Pupils are equal, round. Sclerae anicteric. Mucous membranes of the mouth are moist. Neck supple. No JVD or thyromegaly LUNGS: Respirations even and unlabored. Lungs with decreased air exchange throughout HEART: Irregular rate and rhythm. S1 and S2 heard. Systolic murmur noted ABDOMEN: Soft. Nondistended. Nontender. EXTREMITIES: Normal range of motion. No clubbing or cyanosis. Peripheral pulses intact. Trace bilateral lower extremity edema NEUROLOGIC: Awake and alert. Oriented x 3. ASSESSMENT: Shortness of breath Pneumonia Acute COPD exacerbation New onset atrial fibrillation with RVR, currently rate controlled Chronic hypoxic respiratory failure on home oxygen History of hypertension History of hyperlipidemia Hypothyroidism Former nicotine dependence PLAN: No need to repeat echocardiogram as this was performed in January 2024 Continue Xarelto Continue metoprolol 25 mg twice a day Continue telemetry monitoring Continue additional home cardiac medications Patient is currently stable from a cardiac perspective Further recommendations pending patient course Nurse practitioner note has been reviewed by physician. Signing provider agrees with the documented findings, assessment, and plan of care documented by BEE ROBBER as a scribe. Objective - Vital Signs Vital signs: Vital Signs Temp 97.7 F 03/24/24 08:00 Pulse 84 03/24/24 08:00 Resp 16 03/24/24 08:00 BP 135/74 03/24/24 08:00 Pulse Ox 90 L 03/24/24 08:00 FiO2 Intake & Output 03/23/24 03/24/24 03/24/24 18:59 06:59 18:59 Intake Total 790 118 Balance 790 118 Weight 67.9 kg Intake: Oral 790 118 Other: Voiding Method Toilet Toilet # Voids 1 0 # Bowel Movements 0 - Labs CBC & Chem 7: 03/23/24 07:51 03/23/24 07:51 Labs: Abnormal Lab Results - Last 24 Hours (Table) 03/23/24 03/23/24 03/23/24 Range/Units 11:30 16:37 20:41 POC Glucose (mg/dL) 134 H 135 H 168 H (70-110) mg/dL 03/24/24 Range/Units 06:09 POC Glucose (mg/dL) 117 H (70-110) mg/dL Microbiology - Last 24 Hours (Table) 03/18/24 12:12 Blood Culture - Final Blood
[2024-03-24] MEDS ORDERED: IPRATROPIUM-ALBUTEROL 3 ML NEB INHALATION PRN (15:11)
--- NOTE | 2024-03-24 15:13 | P.PN ---
Progress Note - Text Progress Note Date: 03/24/24 Patient is evaluated in follow-up on the medical floor currently on IV Solu- Medrol and IV ceftriaxone for an acute COPD exacerbation. Patient got into atrial fibrillation with RVR overnight was started on IV Cardizem and IV heparin. Cardiology consulted patient has been transition to oral metoprolol additionally will be transition to oral Xarelto today and taken off the IV heparin drip. Patient is continued to report some mild lower extremity edema was started on oral Lasix daily. March 23: Patient follows with Dr. Agapito Leal. History of COPD, essential hypertension, hypothyroid, hyperlipidemia, GERD, osteoarthritis. Sitting at the edge of the bed. Shortness of breath. Eating fair. Patient remains in A-fib in the low 100s. On Lopressor 25 twice daily. Cardiology following. March 24: Sitting edge of the bed. Remains a bit short of breath. Requiring 5 L of oxygen. Using incentive spirometry. Pulse ox around 88%. ABGs were done. PaO2 51%. CT scan results discussed with Dr. Guzmán. Patient being put back on Omnicef for pneumonia. Patient's ABG showed PaO2 of 51% on 3 L of nasal cannula. Patient's bronchodilators are being increased and also will add nebulized Pulmicort and performist. A-fib controlled in the s Active Medications Albuterol/Ipratropium (Ipratropium-Albuterol 3 Ml Neb) 3 ml INHALATION RT-QID [facility] Last Admin: 03/23/24 15:19 Dose: 3 ml Albuterol/Ipratropium (Ipratropium-Albuterol 3 Ml Neb) 3 ml INHALATION RT-Q4H PRN PRN Reason: shortness of breath Amlodipine Besylate (Amlodipine 10 Mg Tab) 10 mg PO DAILY [facility] Last Admin: 03/23/24 08:26 Dose: 10 mg Artificial Tears (Artificial Tears-Hypromellose Drops 15 Ml Btl) 1 drops BOTH EYES BID [facility] Last Admin: 03/23/24 08:27 Dose: Not Given Aspirin (Aspirin 81 Mg) 81 mg PO DAILY [facility] Last Admin: 03/23/24 08:27 Dose: 81 mg Atorvastatin Calcium (Atorvastatin 20 Mg Tab) 20 mg PO DAILY [facility] Last Admin: 03/23/24 08:26 Dose: 20 mg Budesonide/Formoterol Fumarate (Symbicort 160-4.5 Mcg Inhaler) 2 puff INHALATION RT-BID [facility] Last Admin: 03/23/24 08:20 Dose: 2 puff Cholecalciferol (Cholecalciferol 25 Mcg (1000 Iu) Tablet) 50 mcg PO DAILY [facility] Last Admin: 03/23/24 08:26 Dose: 50 mcg Famotidine (Famotidine 20 Mg Tab) 20 mg PO DAILY [facility] Last Admin: 03/23/24 08:26 Dose: 20 mg Furosemide (Furosemide 20 Mg Tab) 20 mg PO DAILY [facility] Last Admin: 03/23/24 08:26 Dose: 20 mg Guaifenesin/Dextromethorphan (Guaifenesin-Dm 100-10mg/5ml 10 Ml Cup) 10 ml PO Q6HR PRN PRN Reason: Cough Last Admin: 03/23/24 08:29 Dose: 10 ml Heparin Sodium (Porcine) (Heparin Sodium 1,000 Un/Ml (10ml Vl)) 0 unit IV PER PROTOCOL PRN; Protocol PRN Reason: Low PTT Isosorbide Mononitrate (Isosorbide Mononitrate Er 30 Mg Tab.Er.24h) 30 mg PO DAILY [facility] Last Admin: 03/23/24 08:26 Dose: 30 mg Levothyroxine Sodium (Levothyroxine 88 Mcg Tab) 88 mcg PO DAILY@0630 [facility] Last Admin: 03/23/24 06:23 Dose: 88 mcg Lisinopril (Lisinopril 20 Mg Tab) 40 mg PO DAILY [facility] Last Admin: 03/23/24 08:26 Dose: 40 mg Methylprednisolone Sodium Succinate (Methylprednisolone Sod Succi 125 Mg/2 Ml Vial) 60 mg IV Q6HR [facility] Last Admin: 03/23/24 16:08 Dose: 60 mg Metoprolol Tartrate (Metoprolol Tartrate 25 Mg Tab) 25 mg PO BID [facility] Last Admin: 03/23/24 08:26 Dose: 25 mg Miscellaneous Information (Pneumonia Protocol Utilized 1 Each Misc) 1 each PO ONCE PRN PRN Reason: Per Protocol Rivaroxaban (Rivaroxaban 20 Mg Tab) 20 mg PO W/SUPPER [facility]; Protocol Last Admin: 03/23/24 16:09 Dose: 20 mg Tramadol HCl (Tramadol 50 Mg Tab) 50 mg PO BID PRN PRN Reason: Pain Social history: Smoked a pack a day for 50 years stopped about 10 years ago. . Physical examination: VITAL SIGNS: Afebrile, 100, 16, 131 x 84, 91% on 3 L GENERAL: Sitting at edge of the bed, but short of breath EYES: Pupils equal. Conjunctiva jen l. HEENT: External appearance of nose and ears normal, oral cavity grossly normal. NECK: JVD not raised; masses not palpable. HEART: Heart sounds irregular no edema. LUNGS: Respiratory rate increased, decreased breath sounds ABDOMEN: Soft, nontender, liver spleen not palpable, no masses palpable. PSYCH: Alert and oriented x3; mood and affect jen l. MUSCULOSKELETAL:No Clubbing/cyanosis;muscles-grossly intact. OA INVESTIGATIONS, reviewed in the clinical context: March 23: White count 9.3 hemoglobin 12 platelets 305 sodium 144 potassium 4 creatinine 0.92 EKG tracing personally reviewed by me-[March 21] atrial flutter with variable AV block rate 122 Echocardiogram [per cardiology notes] January 2024: EF 55 to 60%. Chest CTA: Advanced emphysematous changes. Lingular pneumonia. No filling defects Assessment and plan: -New onset atrial flutter/atrial fibrillation with RVR, initially now controlled in the 80s Initially received IV Cardizem Lopressor 25 mg twice daily. Xarelto -Acute lingular pneumonia, suspect gram-negative organism Patient being put back on Omnicef after discussion with Dr. Guzmán -Acute COPD exacerbation, and a prior smoker, slow to respond DuoNeb increased to every 4. Hold Symbicort. Changed to nebulized Pulmicort and perform rest -Acute on chronic hypoxic respiratory failure: Not improving 3 L oxygen at baseline History of COVID-19 pneumonia ABG done today on 05 17 shows a pO2 of 51%. FiO2 increased to 5 L -Essential hypertension Amlodipine 10 mg a day. Lopressor 25 mg twice daily -Hyperlipidemia Lipitor -Hypothyroidism Synthroid 88 mcg a day -Full code Patient hypoxic. Short of breath. Omnicef added. Increase nebulized bronchodilator to every 4 and changed Symbicort to nebulized form.
[2024-03-24] MEDS: predniSONE 20 MG TAB PO SCH (15:40)
[2024-03-24] MEDS: CEFDINIR 300 MG CAP PO SCH (15:40)
[2024-03-24 16:43] LABS: Glucose,Whole Blood 118 mg/dL (70-110)
[2024-03-24 20:33] LABS: Glucose,Whole Blood 165 mg/dL (70-110)
--- NOTE | 2024-03-24 22:06 | P.PN ---
Subjective Progress Note Date: 03/24/24 Patient is an 78-year-old white female with past medical history significant for COPD, former tobacco smoker, hypertension, hyperlipidemia, hypothyroidism, "leaky valve". She follows in the pulmonary office with Dr. Dwyer for management of her COPD. She has an FEV1 63% of predicted. She normally utilizes a combination of Advair and as needed Ventolin HFA inhaler. Presented the emergency department yesterday morning with a chief complaint of left-sided chest pain, rated 8/10 on a 10 point numerical scale, especially worse with coughing and deep breathing. Associated persistent nonproductive cough and progressively worsening shortness of breath since Saturday. No significant fevers, chills, sputum production, hemoptysis. She does normally use 3 L/min home O2. Denies any nausea, vomiting, diarrhea. Oral intake has been poor. Chest x-ray taken on arrival showing a left perihilar infiltrate. Follow-up chest CTA negative for filling defects, shows advanced emphysematous changes, as well as, a new lingular consolidation when compared to previous chest CTA taken November,. CBC remarkable for leukocytosis with left shift. CMP: Sodium 140, potassium 3.8, chloride 106, serum bicarb 24, BUN 31, creatinine 0.9, glucose 125. Magnesium 1.4. LFTs unremarkable. Troponins less than 0.012 x 3. NT proBNP 1360. EKG demonstrating sinus rhythm, rate 91 bpm, no acute ischemic abnormalities. She has been started on a combination of Rocephin and azithromycin in the ED. On my initial evaluation, remains in the emergency department. She is on 3 L/min nasal cannula, which she wears at home. Not in any respiratory distress. Continues to have a dry congested cough. Current vitals: Heart rate 80 bpm, blood pressure 119/73 mmHg, nontachypneic, SpO2 91% on 3 L/min nasal cannula. The patient is seen today March 20, 2024 in follow-up on the regular medical floor. She is currently sitting up in bed. Awake and alert in no acute distress. She is maintaining good O2 saturations in the 90s on 3 L/min per nasal cannula. She has normal saline at 50 mL/h. Her procalcitonin was positive at 0.76. She remains on ceftriaxone and azithromycin. She is being treated for a left lower lobe pneumonia. Chest x-ray did reveal mild cardiomegaly and COPD with a patchy left greater than right mid and lower lung opacities. Trace left pleural effusion persists. Still has quite a bit of cough and congestion. Ultras pending. White count 15.1. Hemoglobin 11.6. Platelets 220. Sodium 143. Potassium 4.0. Bicarb 19. BUN 28. Creatinine 1.0. Glucose 175. Shy on DuoNeb inhalations, Symbicort, Solu-Medrol. Lovenox for DVT prophylaxis. The patient is seen today March 21, 2024 in follow-up on the regular medical floor. She is currently resting in bed. Family at the bedside. She is awake and alert in no acute distress. Maintaining O2 saturation in the 90s on 3 L/min per nasal cannula. She is feeling a bit better today compared to yesterday. She remains on DuoNeb inhalations, Symbicort, Solu-Medrol. Lovenox for DVT prophylaxis. She is continued on Rocephin. Procalcitonin was 0.76. No new labs today. Progress note dated March 22, 2024. The patient is seen today in room 380. The patient developed atrial fibrillation last night. Currently, she is on 4 L oxygen by nasal cannula, IV heparin, and saline at 100 cc an hour. She is in no distress currently. Laboratory data includes a white count 10.5, hemoglobin 11.7, hematocrit 35.3, and a platelet count of 295,000. PTT is 51.8. Sodium 146, potassium 4.5, chlorides 114, CO2 20, anion gap 12, BUN 34, creatinine 1.0. Glucose 128. Blood cultures are currently pending or negative. On 03/23/2024, the patient is being seen for a follow-up. The patient is currently being treated for an acute COPD exacerbation and and lingular pneumonia. The patient has completed course of antibiotics. She feels better. Less bronchospastic and wheezy. No dyspnea at rest and she is currently on 3 L of oxygen by nasal cannula with a pulse ox of 91%. Noted the patient has been maintained on home O2 at 3 L. She remains on DuoNeb nebulized treatments [id number]. She is on IV Solu-Medrol 60 mg every 6 hours. She is also on Symbicort 2 puffs twice a day. She remains on long-term anticoagulation with Eliquis as the patient has atrial fibrillation. EKG from today shows a flutter with variable blocks, still somewhat tachycardic and emergency worker on the case. Maintained on metoprolol 25 mg twice a day and maintained on anticoagulation with Xarelto. She is also on aspirin 81 mg p.o. daily, Lipitor 20 mg p.o. daily and she is also on Lasix 20 mg p.o. daily. She is on thyroid hormone replaceme nt 88 mcg of levothyroxine on a daily basis. Labs from today shows a WBC count 9.3 with a hemoglobin 12 and a platelet count of 305. Sodium is 144, BUN is 37 with a creatinine of 0.9. Free T4 was at 1.67. Procalcitonin level was 0.76. Echocardiogram from 02/06/2024 showed a normal left ejection fraction with mild aortic stenosis and mild aortic regurgitation. On 03/24/2024, the patient is being seen for a follow-up. She is currently on 5 L of oxygen by nasal cannula. Blood gas was done and the patient had no significant hypercapnic respiratory failure. In fact, the patient's pCO2 was at 35 with a pH of 7.48. However, the patient was found to be hypoxic on 3 L with a pulse ox of 51%. Remains on bronchodilators with DuoNeb updrafts. She is also on Perforomist and Pulmicort nebulized treatments twice a day. She was started on Omnicef 300 mg p.o. twice daily as the patient had a lingular pneumonia. She remains on anticoagulation with Xarelto. No other new complaints otherwise for now. Chronically short of breath and she reports ongoing improvements. Objective - Vital Signs Vital signs: Vital Signs Temp 97.7 F 03/24/24 08:00 Pulse 87 03/24/24 12:00 Resp 16 03/24/24 12:00 BP 120/75 03/24/24 12:00 Pulse Ox 88 L 03/24/24 12:00 FiO2 Intake & Output 03/23/24 03/24/24 03/24/24 18:59 06:59 18:59 Intake Total 790 118 Balance 790 118 Weight 67.9 kg Intake: Oral 790 118 Other: Voiding Method Toilet Toilet Toilet # Voids 1 0 # Bowel Movements 0 - Exam No acute distress, oriented 3. The patient is currently on 4 L of O2 nasal cannula HEENT examination is grossly unremarkable. Mucous membranes are moist. No oral lesions. Neck supple. Full range of motion. No adenopathy thyromegaly or neck vein distention. Cardiovascular examination reveals an irregular rhythm and rate. S1-S2 normal. No S3 or S4. No discernible murmur noted. Lungs reveal bilateral mild rhonchi. No crackles. Breath sounds equal. No wheezes. Abdomen soft bowel sounds are heard. No masses or tenderness. Extremities are intact. No cyanosis clubbing or edema. Skin is without rash or lesion. Neurologic examination is brief but nonfocal. - Labs CBC & Chem 7: 03/23/24 07:51 03/23/24 07:51 Labs: Abnormal Lab Results - Last 24 Hours (Table) 03/23/24 03/23/24 03/24/24 Range/Units 16:37 20:41 06:09 POC Glucose (mg/dL) 135 H 168 H 117 H (70-110) mg/dL 03/24/24 Range/Units 11:29 POC Glucose (mg/dL) 118 H (70-110) mg/dL Microbiology - Last 24 Hours (Table) 03/18/24 12:12 Blood Culture - Final Blood Assessment and Plan Plan: Acute COPD exacerbation with secondary shortness of breath, currently stable Acute lingular pneumonia/infiltrate, complete antibiotic course. Procalcitonin level is not elevated Atrial flutter/fibrillation with a controlled rate, currently on metoprolol and Xarelto for anticoagulation Acute on chronic dyspnea, secondary to above Acute on chronic hypoxemic respiratory failure, currently on 3 L/min nasal cannula. This is her baseline oxygen requirement Acute leukocytosis. History of COVID-19 pneumonia. Moderate chronic obstructive pulmonary disease, with a baseline FEV1 63% of predicted. Chronic hypoxemic respiratory failure. History of hyperlipidemia. Hypertension. History of hypothyroidism. Former tobacco dependence. Mild aortic stenosis with a preserved LV function and mild pulm hypertension Plan: patient currently at baseline oxygen requirement of 4 L/min nasal cannula Continue Omnicef Start the patient on prednisone burst taper starting dose of 40 mg p.o. daily Continue DuoNeb nebulized treatments [id number] Perforomist and Pulmicort updrafts twice a day Procalcitonin level is not elevated Atrial fibrillation is controlled and the patient is on anticoagulation with Xarelto Will continue to follow
[2024-03-25 05:48] LABS: Glucose,Whole Blood 104 mg/dL (70-110)
[2024-03-25 11:29] VITALS: BMI 26.9
[2024-03-25 11:45] LABS: Glucose,Whole Blood 100 mg/dL (70-110)
--- NOTE | 2024-03-25 14:05 | P.PN ---
Subjective Progress Note Date: 03/25/24 Patient is an 78-year-old white female with past medical history significant for COPD, former tobacco smoker, hypertension, hyperlipidemia, hypothyroidism, "leaky valve". She follows in the pulmonary office with Dr. Dwyer for management of her COPD. She has an FEV1 63% of predicted. She normally utilizes a combination of Advair and as needed Ventolin HFA inhaler. Presented the emergency department yesterday morning with a chief complaint of left-sided chest pain, rated 8/10 on a 10 point numerical scale, especially worse with coughing and deep breathing. Associated persistent nonproductive cough and progressively worsening shortness of breath since Saturday. No significant fevers, chills, sputum production, hemoptysis. She does normally use 3 L/min home O2. Denies any nausea, vomiting, diarrhea. Oral intake has been poor. Chest x-ray taken on arrival showing a left perihilar infiltrate. Follow-up chest CTA negative for filling defects, shows advanced emphysematous changes, as well as, a new lingular consolidation when compared to previous chest CTA taken November,. CBC remarkable for leukocytosis with left shift. CMP: Sodium 140, potassium 3.8, chloride 106, serum bicarb 24, BUN 31, creatinine 0.9, glucose 125. Magnesium 1.4. LFTs unremarkable. Troponins less than 0.012 x 3. NT proBNP 1360. EKG demonstrating sinus rhythm, rate 91 bpm, no acute ischemic abnormalities. She has been started on a combination of Rocephin and azithromycin in the ED. On my initial evaluation, remains in the emergency department. She is on 3 L/min nasal cannula, which she wears at home. Not in any respiratory distress. Continues to have a dry congested cough. Current vitals: Heart rate 80 bpm, blood pressure 119/73 mmHg, nontachypneic, SpO2 91% on 3 L/min nasal cannula. The patient is seen today March 20, 2024 in follow-up on the regular medical floor. She is currently sitting up in bed. Awake and alert in no acute distress. She is maintaining good O2 saturations in the 90s on 3 L/min per nasal cannula. She has normal saline at 50 mL/h. Her procalcitonin was positive at 0.76. She remains on ceftriaxone and azithromycin. She is being treated for a left lower lobe pneumonia. Chest x-ray did reveal mild cardiomegaly and COPD with a patchy left greater than right mid and lower lung opacities. Trace left pleural effusion persists. Still has quite a bit of cough and congestion. Ultras pending. White count 15.1. Hemoglobin 11.6. Platelets 220. Sodium 143. Potassium 4.0. Bicarb 19. BUN 28. Creatinine 1.0. Glucose 175. Shy on DuoNeb inhalations, Symbicort, Solu-Medrol. Lovenox for DVT prophylaxis. The patient is seen today March 21, 2024 in follow-up on the regular medical floor. She is currently resting in bed. Family at the bedside. She is awake and alert in no acute distress. Maintaining O2 saturation in the 90s on 3 L/min per nasal cannula. She is feeling a bit better today compared to yesterday. She remains on DuoNeb inhalations, Symbicort, Solu-Medrol. Lovenox for DVT prophylaxis. She is continued on Rocephin. Procalcitonin was 0.76. No new labs today. Progress note dated March 22, 2024. The patient is seen today in room 380. The patient developed atrial fibrillation last night. Currently, she is on 4 L oxygen by nasal cannula, IV heparin, and saline at 100 cc an hour. She is in no distress currently. Laboratory data includes a white count 10.5, hemoglobin 11.7, hematocrit 35.3, and a platelet count of 295,000. PTT is 51.8. Sodium 146, potassium 4.5, chlorides 114, CO2 20, anion gap 12, BUN 34, creatinine 1.0. Glucose 128. Blood cultures are currently pending or negative. On 03/23/2024, the patient is being seen for a follow-up. The patient is currently being treated for an acute COPD exacerbation and and lingular pneumonia. The patient has completed course of antibiotics. She feels better. Less bronchospastic and wheezy. No dyspnea at rest and she is currently on 3 L of oxygen by nasal cannula with a pulse ox of 91%. Noted the patient has been maintained on home O2 at 3 L. She remains on DuoNeb nebulized treatments [id number]. She is on IV Solu-Medrol 60 mg every 6 hours. She is also on Symbicort 2 puffs twice a day. She remains on long-term anticoagulation with Eliquis as the patient has atrial fibrillation. EKG from today shows a flutter with variable blocks, still somewhat tachycardic and drill sharpener operator on the case. Maintained on metoprolol 25 mg twice a day and maintained on anticoagulation with Xarelto. She is also on aspirin 81 mg p.o. daily, Lipitor 20 mg p.o. daily and she is also on Lasix 20 mg p.o. daily. She is on thyroid hormone replaceme nt 88 mcg of levothyroxine on a daily basis. Labs from today shows a WBC count 9.3 with a hemoglobin 12 and a platelet count of 305. Sodium is 144, BUN is 37 with a creatinine of 0.9. Free T4 was at 1.67. Procalcitonin level was 0.76. Echocardiogram from 02/06/2024 showed a normal left ejection fraction with mild aortic stenosis and mild aortic regurgitation. On 03/24/2024, the patient is being seen for a follow-up. She is currently on 5 L of oxygen by nasal cannula. Blood gas was done and the patient had no significant hypercapnic respiratory failure. In fact, the patient's pCO2 was at 35 with a pH of 7.48. However, the patient was found to be hypoxic on 3 L with a pulse ox of 51%. Remains on bronchodilators with DuoNeb updrafts. She is also on Perforomist and Pulmicort nebulized treatments twice a day. She was started on Omnicef 300 mg p.o. twice daily as the patient had a lingular pneumonia. She remains on anticoagulation with Xarelto. No other new complaints otherwise for now. Chronically short of breath and she reports ongoing improvements. On 03/25/2023, the patient is being seen for a follow-up. Doing well. No specific complaints. She remains on 3 L of oxygen by nasal cannula. She is currently on DuoNeb the regiment [id number], prednisone burst taper, and she is also on a combination of Perforomist and Pulmicort and Bactrim twice a day and she is also completing a course of Omnicef 7 mg p.o. twice daily. No new labs are available from today. No nausea. No chest pain. No pleurisy. No hemoptysis. Overall respiratory status is back to his baseline. Objective - Vital Signs Vital signs: Vital Signs Temp 97.5 F L 03/24/24 21:00 Pulse 88 03/25/24 11:38 Resp 16 03/25/24 04:00 BP 130/87 03/25/24 04:00 Pulse Ox 97 03/25/24 04:00 FiO2 Intake & Output 03/24/24 03/25/24 03/25/24 18:59 06:59 18:59 Intake Total 236 442 118 Balance 236 442 118 Weight 66.8 kg 66.8 kg Intake: Oral 236 442 118 Other: Voiding Method Toilet Toilet # Voids 2 1 - Exam No acute distress, oriented 3. The patient is currently on 4 L of O2 nasal cannula HEENT examination is grossly unremarkable. Mucous membranes are moist. No oral lesions. Neck supple. Full range of motion. No adenopathy thyromegaly or neck vein distention. Cardiovascular examination reveals an irregular rhythm and rate. S1-S2 normal. No S3 or S4. No discernible murmur noted. Lungs reveal bilateral mild rhonchi. No crackles. Breath sounds equal. No wheezes. Abdomen soft bowel sounds are heard. No masses or tenderness. Extremities are intact. No cyanosis clubbing or edema. Skin is without rash or lesion. Neurologic examination is brief but nonfocal. - Labs CBC & Chem 7: 03/23/24 07:51 03/23/24 07:51 Labs: Abnormal Lab Results - Last 24 Hours (Table) 03/24/24 03/24/24 03/24/24 Range/Units 12:16 16:41 20:32 ABG pH 7.48 H (7.35-7.45) ABG pO2 51 L* (83-108) mmHg ABG HCO3 26 H (21-25) mmol/L ABG Total CO2 27 H (19-24) mmol/L ABG O2 Saturation 88.9 L (94-97) % POC Glucose (mg/dL) 118 H 165 H (70-110) mg/dL Assessment and Plan Plan: Acute COPD exacerbation with secondary shortness of breath, currently stable Acute lingular pneumonia/infiltrate, complete antibiotic course. Procalcitonin level is not elevated Atrial flutter/fibrillation with a controlled rate, currently on metoprolol and Xarelto for anticoagulation Acute on chronic dyspnea, secondary to above Acute on chronic hypoxemic respiratory failure, currently on 3 L/min nasal cannula. This is her baseline oxygen requirement Acute leukocytosis. History of COVID-19 pneumonia. Moderate chronic obstructive pulmonary disease, with a baseline FEV1 63% of predicted. Chronic hypoxemic respiratory failure. History of hyperlipidemia. Hypertension. History of hypothyroidism. Former tobacco dependence. Mild aortic stenosis with a preserved LV function and mild pulm hypertension Plan: Patient currently on 2 L of oxygen by nasal cannula Clinically stable Being considered for discharge Recommend to complete the course of Omnicef 300 mg p.o. twice daily for the next 1 week and a prednisone burst taper Procalcitonin level is not elevated Atrial fibrillation is controlled and the patient is on anticoagulation with Xarelto Will continue to follow at the pulmonary clinic on outpatient basis. Possible discharge today.
--- NOTE | 2024-03-25 14:26 | P.PN ---
Subjective HISTORY OF PRESENT ILLNESS: This is a 78-year-old female with a past medical history significant for hypertension, hyperlipidemia, COPD, hypothyroidism, and former nicotine dependence. Patient follows in the office with Dr. Ma. We have been asked to see the patient in consultation for new onset atrial fibrillation. Patient examined at the bedside. Patient presented to the hospital to chief complaint of shortness of breath. She states this started about 4 5 days ago. She also reports having a frequent cough at home. The patient was found to have pneumonia and was started on IV antibiotics. Additionally she is being treated for acute COPD exacerbation. Patient was in sinus mechanism when she presented to the hospital. However yesterday patient went into A-fib with RVR. The patient denies any known history of atrial fibrillation. She denied having any palpitations at that time. Patient was started on IV heparin and IV Cardizem. She is remains in atrial fibrillation this morning with heart rate around 100. She denies chest pain or pressure. DIAGNOSTICS: - EKG reveals sinus mechanism with no signs of acute ischemia. Repeat EKG reveals atrial fibrillation with RVR - Chest xray infiltrate in the left perihilar region correlate for pneumonia. - Laboratory data: WBC 10.48. Hemoglobin 11.7. Platelet count 295. Sodium 146. Potassium 4.5. BUN 33. Creatinine 1.0. - Current home cardiac medications include aspirin 81 mg daily, Lipitor 20 mg daily, Imdur 30 mg daily, lisinopril 40 mg daily - Most recent echocardiogram obtained in January 2024 revealed ejection fraction 55 to 60%, mild LVH, mild aortic stenosis with mean gradient 13 mmHg, mild aortic regurgitation, mild TR, and mild pulm hypertension - Cardiac catheterization history: August 2021 revealing fixed inferior basal defect 03/23/2024 Patient examined this morning at the bedside. Patient denies chest pain or pressure. She continues to report shortness of breath and frequent coughing. Denies any palpitations. Telemetry reveals atrial fibrillation with heart rate in the 80s. Blood pressure stable. 03/24/2024 Patient examined this morning at the bedside. Patient currently denies chest pain or pressure. She continues to report occasional shortness of breath although improved. She remains in atrial fibrillation with controlled ventricular rate. 03/25/2024 Patient examined this morning the bedside. Patient currently denies chest pain or pressure. She reports improvement in her shortness of breath. Vital signs are stable. She is afebrile. Telemetry reveals atrial fibrillation with controlled ventricular rate, HR slightly higher in the 90s. PHYSICAL EXAM: VITAL SIGNS: Reviewed. GENERAL: Well-developed in no acute distress. HEENT: Head is normocephalic. Pupils are equal, round. Sclerae anicteric. Mucous membranes of the mouth are moist. Neck supple. No JVD or thyromegaly LUNGS: Respirations even and unlabored. Lungs with decreased air exchange throughout HEART: Irregular rate and rhythm. S1 and S2 heard. Systolic murmur noted ABDOMEN: Soft. Nondistended. Nontender. EXTREMITIES: Normal range of motion. No clubbing or cyanosis. Peripheral pulses intact. Trace bilateral lower extremity edema NEUROLOGIC: Awake and alert. Oriented x 3. ASSESSMENT: Shortness of breath Pneumonia Acute COPD exacerbation New onset atrial fibrillation with RVR, currently rate controlled Chronic hypoxic respiratory failure on home oxygen History of hypertension History of hyperlipidemia Hypothyroidism Former nicotine dependence PLAN: No need to repeat echocardiogram as this was performed in January 2024 Continue Xarelto Continue metoprolol 25 mg twice a day Continue telemetry monitoring Continue additional home cardiac medications Patient is currently stable from a cardiac perspective Further recommendations pending patient course Nurse practitioner note has been reviewed by physician. Signing provider agrees with the documented findings, assessment, and plan of care documented by BUSINESS REPORTING DEVELOPER as a scribe. Objective - Vital Signs Vital signs: Vital Signs Temp 97.5 F L 03/24/24 21:00 Pulse 80 03/25/24 08:19 Resp 16 03/25/24 04:00 BP 130/87 03/25/24 04:00 Pulse Ox 97 03/25/24 04:00 FiO2 Intake & Output 03/24/24 03/25/24 03/25/24 18:59 06:59 18:59 Intake Total 236 442 118 Balance 236 442 118 Weight 66.8 kg Intake: Oral 236 442 118 Other: Voiding Method Toilet Toilet # Voids 2 1 - Labs CBC & Chem 7: 03/23/24 07:51 03/23/24 07:51 Labs: Abnormal Lab Results - Last 24 Hours (Table) 03/24/24 03/24/24 03/24/24 Range/Units 11:29 12:16 16:41 ABG pH 7.48 H (7.35-7.45) ABG pO2 51 L* (83-108) mmHg ABG HCO3 26 H (21-25) mmol/L ABG Total CO2 27 H (19-24) mmol/L ABG O2 Saturation 88.9 L (94-97) % POC Glucose (mg/dL) 118 H 118 H (70-110) mg/dL 03/24/24 Range/Units 20:32 ABG pH (7.35-7.45) ABG pO2 (83-108) mmHg ABG HCO3 (21-25) mmol/L ABG Total CO2 (19-24) mmol/L ABG O2 Saturation (94-97) % POC Glucose (mg/dL) 165 H (70-110) mg/dL
[2024-03-25 18:46] VITALS: TEMP 98.1
[2024-03-25 18:48] VITALS: BP 126/80; PULSE 98; RESP 18
--- NOTE | 2024-03-25 18:51 | P.DS ---
Providers Date of admission: 03/18/24 12:13 Expected date of discharge: 03/25/24 Attending physician: Arturo Mcdowell Consults: 03/18/24 12:12 Consult Physician Routine Consulting Provider: James Peña Consult Reason/Comments: pneumonia Do you want consulting provider notified?: Yes 03/21/24 18:35 Consult Physician Routine Consulting Provider: Chery Moscoso Consult Reason/Comments: new onset afib Do you want consulting provider notified?: Yes Primary care physician: Agapito Leal [facility] Course: Patient is evaluated in follow-up on the medical floor currently on IV Solu- Medrol and IV ceftriaxone for an acute COPD exacerbation. Patient got into atrial fibrillation with RVR overnight was started on IV Cardizem and IV heparin. Cardiology consulted patient has been transition to oral metoprolol additionally will be transition to oral Xarelto today and taken off the IV heparin drip. Patient is continued to report some mild lower extremity edema was started on oral Lasix daily. March 23: Patient follows with Dr. Agapito Leal. History of COPD, essential hypertension, hypothyroid, hyperlipidemia, GERD, osteoarthritis. Sitting at the edge of the bed. Shortness of breath. Eating fair. Patient remains in A-fib in the low 100s. On Lopressor 25 twice daily. Cardiology following. March 24: Sitting edge of the bed. Remains a bit short of breath. Requiring 5 L of oxygen. Using incentive spirometry. Pulse ox around 88%. ABGs were done. PaO2 51%. CT scan results discussed with Dr. Guzmán. Patient being put back on Omnicef for pneumonia. Patient's ABG showed PaO2 of 51% on 3 L of nasal cannula. Patient's bronchodilators are being increased and also will add nebulized Pulmicort and performist. A-fib controlled in the 80s March 25: Patient stabilized. On status oxygen. Discussed with Ramirez. Stable for discharge. Patient complete 5-day course of Ceftin. Patient will follow-up with her director of cardiac cath lab Dr. Dwyer and cardiology. A-fib remains controlled. Questions answered Discussion and discharge planning more than 35 minutes Social history: Smoked a pack a day for 50 years stopped about 10 years ago. . Physical examination: VITAL SIGNS: Afebrile, 75, 16, 130 x 87, 97% on 3 L GENERAL: Sitting at edge of the bed, breathing better EYES: Pupils equal. Conjunctiva jen l. HEENT: External appearance of nose and ears normal, oral cavity grossly normal. NECK: JVD not raised; masses not palpable. HEART: Heart sounds irregular no edema. LUNGS: Respiratory rate increased, decreased breath sounds ABDOMEN: Soft, nontender, liver spleen not palpable, no masses palpable. PSYCH: Alert and oriented x3; mood and affect jen l. MUSCULOSKELETAL:No Clubbing/cyanosis;muscles-grossly intact. OA INVESTIGATIONS, reviewed in the clinical context: March 23: White count 9.3 hemoglobin 12 platelets 305 sodium 144 potassium 4 creatinine 0.92 EKG tracing personally reviewed by me-[March 21] atrial flutter with variable AV block rate 122 Echocardiogram [per cardiology notes] January 2024: EF 55 to 60%. Chest CTA: Advanced emphysematous changes. Lingular pneumonia. No filling defects Assessment and plan: -New onset atrial flutter/atrial fibrillation with RVR, initially now controlled Initially received IV Cardizem Lopressor 25 mg twice daily. Xarelto -Acute lingular pneumonia, suspect gram-negative organism Omnicef 500 mg twice daily for 5 more days -Acute COPD exacerbation, and a prior smoker, improved DuoNeb Symbicort. Prednisone taper -Acute on chronic hypoxic respiratory failure: Better Patient dropped down to 3 L oxygen -Essential hypertension Amlodipine 10 mg a day. Lopressor 25 mg twice daily -Hyperlipidemia Lipitor -Hypothyroidism Synthroid 88 mcg a day -Full code Disposition: Home Plan - Discharge Summary Discharge Rx Participant: Yes New Discharge Prescriptions: New Furosemide [Lasix] 20 mg PO DAILY #30 tab Cefdinir [Omnicef] 300 mg PO BID #10 cap Rivaroxaban [Xarelto] 20 mg PO W/SUPPER #30 tab Ipratropium-Albuterol Nebulize [Duoneb 0.5 mg-3 mg/3 ml Soln] 3 ml INHALATION RT-QID #120 each Metoprolol Tartrate [Lopressor] 25 mg PO BID #60 tab predniSONE 10 mg PO DAILY #30 tab Continue Aspirin [Adult Low Dose Aspirin EC] 81 mg PO DAILY Fluticasone Propion/Salmeterol [Fluticasone-Salmeterol 250-50] 1 puff INHALATION RT-BID Cholecalciferol [Vitamin D3 (25 Mcg = 1000 Iu)] 50 mcg PO DAILY Albuterol Inhaler [Ventolin Hfa Inhaler] 2 puff INHALATION RT-Q4H PRN PRN Reason: Shortness Of Breath Nitroglycerin Sl Tabs [Nitrostat] 0.4 mg SL Q5M PRN PRN Reason: Chest Pain lisinopriL [Zestril] 40 mg PO DAILY Levothyroxine Sodium 88 mcg PO DAILY Felodipine [Plendil] 10 mg PO DAILY Famotidine [Pepcid] 20 mg PO DAILY Isosorbide Mononitrate ER [Imdur] 30 mg PO DAILY Atorvastatin [Lipitor] 20 mg PO DAILY Propylene Glycol/Peg 400/Pf [Systane 0.3-0.4% Ophth Dropperette] 1 drop BOTH EYES BID traMADol HCL 50 mg PO BID PRN PRN Reason: Pain Discharge Medication List Albuterol Inhaler [Ventolin Hfa Inhaler] 2 puff INHALATION RT-Q4H PRN 08/30/22 [History] Aspirin [Adult Low Dose Aspirin EC] 81 mg PO DAILY 08/30/22 [History] Cholecalciferol [Vitamin D3 (25 Mcg = 1000 Iu)] 50 mcg PO DAILY 08/30/22 [History] Famotidine [Pepcid] 20 mg PO DAILY 08/30/22 [History] Felodipine [Plendil] 10 mg PO DAILY 08/30/22 [History] Fluticasone Propion/Salmeterol [Fluticasone-Salmeterol 250-50] 1 puff INHALATION RT-BID 08/30/22 [History] Isosorbide Mononitrate ER [Imdur] 30 mg PO DAILY 08/30/22 [History] Levothyroxine Sodium 88 mcg PO DAILY 08/30/22 [History] lisinopriL [Zestril] 40 mg PO DAILY 08/30/22 [History] Atorvastatin [Lipitor] 20 mg PO DAILY 10/14/23 [History] Nitroglycerin Sl Tabs [Nitrostat] 0.4 mg SL Q5M PRN 10/14/23 [History] Propylene Glycol/Peg 400/Pf [Systane 0.3-0.4% Ophth Dropperette] 1 drop BOTH EYES BID 10/14/23 [History] traMADol HCL 50 mg PO BID PRN 03/18/24 [History] Cefdinir [Omnicef] 300 mg PO BID #10 cap 03/25/24 [Rx] Furosemide [Lasix] 20 mg PO DAILY #30 tab 03/25/24 [Rx] Ipratropium-Albuterol Nebulize [Duoneb 0.5 mg-3 mg/3 ml Soln] 3 ml INHALATION RT-QID #120 each 03/25/24 [Rx] Metoprolol Tartrate [Lopressor] 25 mg PO BID #60 tab 03/25/24 [Rx] Rivaroxaban [Xarelto] 20 mg PO W/SUPPER #30 tab 03/25/24 [Rx] predniSONE 10 mg PO DAILY #30 tab 03/25/24 [Rx] Follow up Appointment(s)/Referral(s): Meek Ma MD [STAFF PHYSICIAN] - 1 Week (Please call to schedule follow up appointments ) Agapito Leal MD [Primary Care Provider] - 1-2 days (Please call to schedule follow up appointments ) Patient Instructions/Handouts: A-fib (Atrial Fibrillation) (DC), Bacterial Pneumonia (DC), Safe Use of Anticoagulants (DC) Discharge Disposition: HOME WITH HOME HEALTH SERVICES
== END 2024-03-25 16:45 | disposition home health service (06) | DRG 177 ==
LOC: EC 09:34 → 4SSUR 12:13 → 3SCARD 03-21 21:32
PROVIDERS: ADMIT Hospitalist; ATTEND Hospitalist
DX: J15.69 Pneumonia due to other Gram-negative bacteria (principal); J96.21 Acute and chronic respiratory failure with hypoxia; J44.0 Chronic obstructive pulmonary disease with (acute) lower respiratory infection; I08.2 Rheumatic disorders of both aortic and tricuspid valves; I10 Essential (primary) hypertension; E03.9 Hypothyroidism, unspecified; I48.92 Unspecified atrial flutter; J44.1 Chronic obstructive pulmonary disease with (acute) exacerbation; M19.90 Unspecified osteoarthritis, unspecified site; E83.42 Hypomagnesemia; I48.91 Unspecified atrial fibrillation; E78.5 Hyperlipidemia, unspecified; K21.9 Gastro-esophageal reflux disease without esophagitis; I44.30 Unspecified atrioventricular block; Z87.891 Personal history of nicotine dependence; Z86.16 Personal history of COVID-19; Z87.01 Personal history of pneumonia (recurrent); Z99.81 Dependence on supplemental oxygen; Z86.0100 Personal history of colon polyps, unspecified; Z79.82 Long term (current) use of aspirin; Z79.890 Hormone replacement therapy; Z79.51 Long term (current) use of inhaled steroids; Z79.899 Other long term (current) drug therapy
CPT/HCPCS: 36415; 36600; 71045; 71046; 71275; 80053; 82805; 83605; 83735; 83880; 84145; 84439; 84443; 84484; 85025; 85379; 85610; 85730; 87040; 87449; 93005; 94640; 94760; 96361; 96365; 96366; 96368; 99285

== ENCOUNTER 2024-08-05 07:06 | Day surgery (SDC) | payer MEDICARE ==
[2024-08-05] MEDS: IV FLUID CONTINUATION 1,000 ML IV ONE ×3 (07:42→08:53)
[2024-08-05 07:51] VITALS: TEMP 97.4
[2024-08-05] MEDS ORDERED: PROPOFOL 10 MG/ML 20 ML VIAL IV ONE (08:30)
[2024-08-05] MEDS ORDERED: LIDOCAINE 1% INJ 10MG/ML (20 ML MDV) ONE (08:30)
--- NOTE | 2024-08-05 08:52 | P.PCN ---
Date of Procedure: 08/05/24 Procedure(s) Performed: Brief history: Patient is a pleasant 79-year-old white female scheduled for an elective upper endoscopy as well as colonoscopy as a part of evaluation of iron deficiency anemia. She does have a history of A-fib and has been on Xarelto which is on hold for 3 days. Procedure performed: Esophagogastroduodenoscopy with biopsy Colonoscopy Preoperative diagnosis: Iron deficiency anemia Anesthesia: MAC Procedure: After informed consent was obtained from the patient was brought into the endoscopy unit and IV sedation was administered by anesthesia under continuous monitoring. Initially upper endoscopy was done. The Olympus GF 160 video endoscope was inserted inserted into the mouth and esophagus intubated without any difficulty and was gradually advanced into the stomach and duodenum and carefully examined. The bulb and second part of the duodenum appeared normal. Biopsies were done from the duodenum to rule out celiac disease. The scope was then withdrawn into the stomach adequately insufflated with air and upon careful examination the antrum had gastritis and biopsies were done from this area. Because of the body, cardia and fundus appeared normal. The scope was then withdrawn into the esophagus. The GE junction was located at 40 cm to the incisors. It appeared regular with no erythema erosions or ulcerations. Rest of the esophagus appeared normal. Patient tolerated the procedure well. At this time the patient continued to remain sedation. Initial digital rectal examination was normal. Olympus CF 160 video colonoscope was then inserted into the rectum and gradually advanced to the cecum without any difficulty. Careful examination was performed as the scope was gradually being withdrawn. The prep was excellent. The cecum, ascending colon, transverse colon, descending colon, sigmoid colon and rectum appeared normal. Scattered sigmoid diverticulosis. Retroflexion was performed in the rectum and no lesions were noted. Patient tolerated the procedure well. Impression: 1. Upper endoscopy revealed mild antral gastritis and small hiatal hernia. 2. Colonoscopy revealed scattered sigmoid diverticulosis but no evidence of colorectal neoplasia Recommendations: Findings of this examination were discussed with the patient as well as her family. She was advised to follow-up with the biopsy results resume Xarelto today. Follow-up in the office in 2 weeks. Will schedule her for small bowel capsule endoscopy to evaluate for iron deficiency anemia.
[2024-08-05 09:23] VITALS: BP 101/68; PULSE 60; RESP 17
== END 2024-08-05 09:45 | disposition home or self-care (01) ==
LOC: ORWHC2ENDO 07:06
PROVIDERS: ATTEND Internal Medicine Gastroenterology
DX: K29.50 Unspecified chronic gastritis without bleeding (principal); K31.9 Disease of stomach and duodenum, unspecified; K44.9 Diaphragmatic hernia without obstruction or gangrene; K57.30 Diverticulosis of large intestine without perforation or abscess without bleeding; D50.9 Iron deficiency anemia, unspecified; I48.91 Unspecified atrial fibrillation; I10 Essential (primary) hypertension; E78.5 Hyperlipidemia, unspecified; I25.10 Atherosclerotic heart disease of native coronary artery without angina pectoris; J44.89 Other specified chronic obstructive pulmonary disease; E03.9 Hypothyroidism, unspecified; M19.90 Unspecified osteoarthritis, unspecified site; K21.9 Gastro-esophageal reflux disease without esophagitis; Z87.891 Personal history of nicotine dependence; Z79.01 Long term (current) use of anticoagulants; Z99.81 Dependence on supplemental oxygen; Z79.899 Other long term (current) drug therapy; Z79.51 Long term (current) use of inhaled steroids; Z79.1 Long term (current) use of non-steroidal anti-inflammatories (NSAID); Z88.1 Allergy status to other antibiotic agents; Z88.8 Allergy status to other drugs, medicaments and biological substances
CPT/HCPCS: 45378; 43239; J2003; J2704; 88305